=== PATIENT | male | born 1970 | race Caucasian/White ===

== ENCOUNTER 2022-01-04 13:32 | Observation (INO) | payer MEDICAID, SELFPAY ==
[2022-01-04 13:36] VITALS: BP 116/71; PULSE 142; RESP 22; TEMP 36.6; O2SAT 95; BMI 25.7
--- NOTE | 2022-01-04 13:37 | XRR_ITS ---
PROCEDURE INFORMATION: Exam: XR Chest Exam date and time: 01/04/2022 12:45 PM Age: 51 years old Clinical indication: Pain; Angina pectoris; Patient HX: Cp throughout since this am, afib, HX of heart problems; Patch shown in lower lt lung field could not be removed; Additional info: Chest pain TECHNIQUE: Imaging protocol: XR of the chest. Views: 1 view. COMPARISON: No relevant prior studies available. FINDINGS: Lungs: Bronchovascular markings extend to the chest wall in the right lung No consolidation. Pleural spaces: Unremarkable. No pleural effusion. No pneumothorax. Heart/Mediastinum: Unremarkable. No cardiomegaly. Bones/joints: Unremarkable. A ventricular peritoneal shunt is present on the right side appearing intact. XR/XR chest 1V portable [id number] IMPRESSION: No acute findings. Intact CLOTH OPENER HAND shunt right side.
--- NOTE | 2022-01-04 13:39 | CTR_ITS ---
PROCEDURE INFORMATION: Exam: CTA Chest With Contrast Exam date and time: 01/04/2022 2:56 PM Age: 51 years old Clinical indication: Shortness of breath; Additional info: Eval for pe TECHNIQUE: Imaging protocol: Computed tomographic angiography of the chest with contrast. 3D rendering (Not supervised by radiologist): MIP and/or 3D reconstructed images were created by the technologist. Radiation optimization: All CT scans at this facility use at least one of these dose optimization techniques: automated exposure control; mA and/or kV adjustment per patient size (includes targeted exams where dose is matched to clinical indication); or iterative reconstruction. Contrast material: OMNIPAQUE 350; Contrast volume: 95 ml; Contrast route: INTRAVENOUS (IV); COMPARISON: CR XR chest 1V portable [id number] 01/04/2022 12:45 PM RADIATION DOSE METRICS: Total DLP (mGy-cm): 1801.49 FINDINGS: Pulmonary arteries: Normal. No pulmonary emboli. Aorta: Unremarkable. No aortic aneurysm. No aortic dissection. Lungs: There is diffuse emphysematous disease in both lungs. A parenchymal density is present in the right upper lobe which may represent pulmonary fibrosis. Pleural spaces: Unremarkable. No pneumothorax. No pleural effusion. Heart: Unremarkable. No cardiomegaly. No pericardial effusion. Lymph nodes: Unremarkable. No enlarged lymph nodes. Bones/joints: Unremarkable. No acute fracture. Soft tissues: Unremarkable. PROCEDURE INFORMATION: Exam: CT Angiography Abdomen With Contrast Exam date and time: 01/04/2022 2:56 PM Age: 51 years old Clinical indication: Shortness of breath; Additional info: Eval for pe TECHNIQUE: Imaging protocol: Computed tomographic angiography images of the abdomen with intravenous contrast material. 3D rendering (Not supervised by radiologist): MIP and/or 3D reconstructed images were created by the technologist. Radiation optimization: All CT scans at this facility use at least one of these dose optimization techniques: automated exposure control; mA and/or kV adjustment per patient size (includes targeted exams where dose is matched to clinical indication); or iterative reconstruction. Contrast material: OMNIPAQUE 350; Contrast volume: 95 ml; Contrast route: INTRAVENOUS (IV); COMPARISON: CR XR chest 1V portable [id number] 01/04/2022 12:45 PM RADIATION DOSE METRICS: Total DLP (mGy-cm): 1801.49 FINDINGS: Aorta: No aortic aneurysm. No aortic dissection. Scattered calcifications Celiac trunk and mesenteric arteries: No occlusion or significant stenosis. Renal arteries: No occlusion or significant stenosis. Liver: Diffuse lucency is seen consistent with steatosis. No mass. Gallbladder and bile ducts: Normal. No calcified stones. No ductal dilation. Pancreas: Normal. No ductal dilation. Spleen: Normal. No splenomegaly. Adrenals: Normal. No mass. Kidneys and ureters: Normal. No hydronephrosis. Stomach and bowel: Filled with fluid. No obstruction. No mucosal thickening. Lymph nodes: Unremarkable. No enlarged lymph nodes. Intraperitoneal space: Right side METHODS EXAMINER shunt tube is present. No free air. No significant fluid collection. Bones/joints: Unremarkable. No acute fracture. No dislocation. Soft tissues: Unremarkable. CT/CT angio chest abdomen IMPRESSION: 1. Negative for pulmonary embolism. 2. Negative for right heart strain. 3. Right upper lobe pulmonary fibrosis 4. Diffuse pulmonary emphysema IMPRESSION: 1. Calcified abdominal aorta without aneurysm, branch vessels are normal 2. Hepatic steatosis 3. The stomach is filled with fluid. 4. 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 anterior abdomen
--- NOTE | 2022-01-04 13:41 | W.ED.GENADLT ---
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 Patient has complaints of nausea/vomiting and diarrhea for the last 3 days. Earlier today, patient felt lightheaded and had episodes of chest pain. At the custodial, patient nurse noted the patient heart rate was exceedingly fast and called EMS. By the time EMS arrived, patient was noted to be in atrial fibrillation with RVR with heart rate to the 230s and patient was hypotensive. Rescue gave patient 150 mg of amiodarone over 10 minutes and patient is heart rate improved to 120s and the blood pressure improved. Patient never lost consciousness during the episode or loss pulses. On arrival, patient still denies any active chest pain or palpitation at this time. Onset: 3 days ago Duration: ongoing Location:home Severity:moderate/severe Associated symptoms: Reports chest pain, nausea, palpitations and vomiting; Deny dyspnea or rash Review of Systems Const: Denies: fever(s) or chills Eyes: Denies: change in vision ENMT: Denies: mouth pain Card: Reports: chest pain and palpitations Resp: Denies: dyspnea or non-productive cough GI: Reports: nausea, vomiting and diarrhea : Denies: dysuria Musc: Denies: extremity pain Skin/Breast: Denies: rash or new lesions Neuro: Denies: weakness in extremities Psych: Reports: other (Normal mood) Vince/Lymph: Denies: easy bruising PFSH ED PFSH: Medical History Aortic aneurysm Atrial fibrillation Personal history of ECMO Surgical History PRESS OPERATOR PRINTING (ventriculoperitoneal) shunt status Social History Smoking and tobacco status: never smoked Alcohol intake: never Substance/Drug Use: former Physical Exam Const: COMMON NORMALS: alert HENMT: COMMON NORMALS: atraumatic HEAD & SCALP: atraumatic MOUTH: moist mucous membranes not abnormal Eye: COMMON NORMALS: EOMs intact bilaterally and conjunctivae normal CONJUNCTIVA: Yes conjunctivae normal Neck/C-Spine: COMMON NORMALS: full ROM and supple Resp: COMMON NORMALS: normal respiratory effort and clear to auscultation bilaterally AUSCULTATION: clear to auscultation bilaterally Cardio: RATE: tachycardic GI: COMMON NORMALS: Soft to palpation and non-tender PALPATION: Yes Soft to palpation Extremity: COMMON NORMALS: full ROM Neuro: SENSORIUM/ORIENTATION: Yes alert MOTOR EXAM: No Abnormal motor strength present and Other motor observations present (no focal motor deficits) Psych: COMMON NORMALS: speech normal SPEECH: Yes normal speech MOOD & AFFECT: Yes euthymic mood Course Vital Signs: Vital signs: Vital Signs Temperature 99.3 F 01/04/22 20:00 Pulse Rate 114 H 01/04/22 20:00 Respiratory Rate 20 H 01/04/22 20:00 Blood Pressure 104/77 01/04/22 20:00 Pulse Oximetry 96 01/04/22 20:00 [facility] - General Adult Medical Decision Making 51-year-old male with history of aortic aneurysm, atrial fibrillation, venous meth use who presents the emergency room for evaluation of new onset of fast heart rate. On arrival, patient is noted to be regular tachycardic with HRT of 145. EKG showed left posterior bundle branch with right bundle branch with regular atrial flutter. No CAREN or hyperacute T waves. No prior EKG for comparison. We have attempted to reach [facility] for previous EKG, currently pending. Patient received 20 mg of Cardizem, 15 mg of metoprolol, 250 mg of IV digoxin, 1.5 L of fluid with significant provement heart rate to low 100s. TSH T4 within normal limit. CTA is negative for any acute findings. Patient is still in aflutter with HR in the low 100s. Will be admitted for echo and close evaluation Disposition: admission Lab Data : 01/04/22 13:50 01/04/22 13:50 Radiology Impressions Chest X-Ray 01/04/22 13:37 IMPRESSION: No acute findings. Intact PRESS OPERATOR PRINTING shunt right side. Chest/Abdomen CTA 01/04/22 13:39 IMPRESSION: 1. Negative for pulmonary embolism. 2. Negative for right heart strain. 3. Right upper lobe pulmonary fibrosis 4. Diffuse pulmonary emphysema IMPRESSION: 1. Calcified abdominal aorta without aneurysm, branch vessels are normal 2. Hepatic steatosis 3. The stomach is filled with fluid. 4. 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 anterior abdomen Laboratory Results WBC 11.9 10^3/uL (4.0-10.0) H 01/04/22 13:50 RBC 5.79 10^6/uL (4.1-5.3) H 01/04/22 13:50 Hgb 17.1 g/dL (11.7-16.6) H 01/04/22 13:50 Hct 52.0 % (42.0-52.0) 01/04/22 13:50 MCV 89.8 fl (80-94) 01/04/22 13:50 MCH 29.5 pg (28.0-34.0) 01/04/22 13:50 MCHC 32.9 g/dL (30.0-36.0) 01/04/22 13:50 RDW 16.1 % (12.1-15.1) H 01/04/22 13:50 Plt Count 229 10^3/cmm (130-400) 01/04/22 13:50 MPV 11.2 fL (7.4-10.4) H 01/04/22 13:50 Neut % (Auto) 89.1 % 01/04/22 13:50 Lymph % (Auto) 5.1 % 01/04/22 13:50 Marshall % (Auto) 3.9 % 01/04/22 13:50 Eos % (Auto) 1.3 % 01/04/22 13:50 Baso % (Auto) 0.3 % 01/04/22 13:50 Neut # (Auto) 10.61 10^3/uL (1.8-7.7) H 01/04/22 13:50 Lymph # (Auto) 0.6 10^3/uL (0.8-4.8) L 01/04/22 13:50 Marshall # (Auto) 0.5 10^3/uL (0.2-0.9) 01/04/22 13:50 Eos # (Auto) 0.2 10^3/uL (0.0-0.8) 01/04/22 13:50 Baso # (Auto) 0.0 10^3/uL (0.0-0.1) 01/04/22 13:50 Nucleated RBC % (auto) 0 % 01/04/22 13:50 Nucleated RBCs # 0.0 /100WBC 01/04/22 13:50 Sodium 136 mmol/L (136-145) 01/04/22 13:50 Potassium 5.1 mmol/L (3.5-5.1) 01/04/22 13:50 Chloride 100 mmol/L (98-107) 01/04/22 13:50 Carbon Dioxide 25 mmol/L (22-29) 01/04/22 13:50 Anion Gap 16.1 (5-19) 01/04/22 13:50 BUN 21 mg/dL (6-20) H 01/04/22 13:50 Creatinine 1.1 mg/dL (0.7-1.2) 01/04/22 13:50 GFR Calculation 70.3 mL/min (90-130) L 01/04/22 13:50 Glucose 99 mg/dL (65-115) 01/04/22 13:50 Calculated Osmolality 285 mOsm/kg (285-295) 01/04/22 13:50 Lactate 2.1 mmol/L (0.5-2.2) 01/04/22 13:50 Calcium 9.6 mg/dL (8.5-10.5) 01/04/22 13:50 Total Bilirubin 0.6 mg/dL (0.15-1.2) 01/04/22 13:50 AST 11 U/L (0-40) 01/04/22 13:50 ALT 13 U/L (0-41) 01/04/22 13:50 Alkaline Phosphatase 94 IU/L (40-130) 01/04/22 13:50 Troponin T Baseline 6 ng/L (0-15) 01/04/22 13:50 Total Protein 7.6 g/dL (6.6-8.7) 01/04/22 13:50 Albumin 4.9 g/dL (3.5-5.2) 01/04/22 13:50 Globulin 2.7 g/dL (1.3-4.6) 01/04/22 13:50 Lipase 33 U/L (13-60) 01/04/22 13:50 TSH 1.90 uIU/mL (0.27-4.20) 01/04/22 13:50 Free T4 0.93 ng/dL (0.82-1.77) 01/04/22 13:50 Imaging Data Other Imaging: Radiologist's impression: [facility] [address] [place] [address] XRay Report Signed Patient: Wei Leone Unit #: [id number] : 1970 Age/Sex: 51 / M ADM Date: 01/04/22 Loc: ER Room/Bed: Attending Dr: Ordering Provider/Ordering MD: Garrison Perkins MD Date of Service: 01/04/22 Procedure(s): XR chest 1V portable [id number] Accession Number(s): [id number] Report Number: [id number] PROCEDURE INFORMATION: Exam: XR Chest Exam date and time: 01/04/2022 12:45 PM Age: 51 years old Clinical indication: Pain; Angina pectoris; Patient HX: Cp throughout since this am, afib, HX of heart problems; Patch shown in lower lt lung field could not be removed; Additional info: Chest pain TECHNIQUE: Imaging protocol: XR of the chest. Views: 1 view. COMPARISON: No relevant prior studies available. FINDINGS: Lungs:? Bronchovascular markings extend to the chest wall in the right lung No consolidation. Pleural spaces: Unremarkable. No pleural effusion. No pneumothorax. Heart/Mediastinum: Unremarkable. No cardiomegaly. Bones/joints: Unremarkable. A ventricular peritoneal shunt is present on the right side appearing intact. XR/XR chest 1V portable [id number] IMPRESSION: No acute findings. Intact PRESS OPERATOR PRINTING shunt right side. ? Dictated By: Odell Solis Signed By: Odell Solis Signed Date/Time: 01/04/22 1454 DD/ 1245 Discharge Plan Discharge Patient Disposition: Admitted As Inpatient Admit Provider: Aneudy Chaparro Clinical Impression: Atrial flutter, Nausea & vomiting, Diarrhea, Chest pressure Condition: Stable Coding Level of Care Code ED Partner Marketing Intern for Chg Fwd Exam Comprehensive
--- NOTE | 2022-01-04 13:51 | ECG_ITS ---
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 Measurements Intervals [place] Rate: 91 P: OK: QRS: 266 QRSD: 157 T: 76 QT: 386 QTc: 475 Interpretive Statements ATRIAL FLUTTER INDETERMINATE AXIS RIGHT BUNDLE BRANCH BLOCK [120+ ms QRS DURATION, UPRIGHT V1, 40+ ms S IN I/aVL/V4/V5/V6] LEFT POSTERIOR FASCICULAR BLOCK [QRS AXIS > 109, INFERIOR Q] Compared to ECG 01/04/2022 13:34:56 Indeterminate axis now present Ventricular premature complex(es) no longer present Aberrant conduction of supraventricular beat(s) no longer present Electronically Signed On 01-04-2022 20:08:16 CDT by Sonu Springer M.D. [id number]
[2022-01-04] MEDS: metoprolol tartrate 1 mg/1 mL SDV 5 mL 5 MG IVP ×2 (14:00→14:12)
[2022-01-04] MEDS: digoxin 250 mcg/ml INJ 2 mL IVP (14:05)
[2022-01-04 14:06] LABS: Basophils % 0.3 %; Eosinophils # 0.2 10^3/uL (0.0-0.8); Eosinophils % 1.3 %; Hemoglobin 17.1 g/dL (11.7-16.6); Lymphocytes # 0.6 10^3/uL (0.8-4.8); Lymphocytes % 5.1 %; Mean Corpuscular HGB Conc 32.9 g/dL (30.0-36.0); Mean Corpuscular Hemoglobin 29.5 pg (28.0-34.0); Mean Corpuscular Volume 89.8 fl (80-94); Mean Platelet Volume 11.2 fL (7.4-10.4); Monocytes # 0.5 10^3/uL (0.2-0.9); Monocytes % 3.9 %; Neutrophils # 10.61 10^3/uL (1.8-7.7); Neutrophils % 89.1 %; Nucleated Red Blood Cells % 0 %; Platelet Count 229 10^3/cmm (130-400); Red Blood Count 5.79 10^6/uL (4.1-5.3); Red Cell Distribution Width 16.1 % (12.1-15.1); White Blood Count 11.9 10^3/uL (4.0-10.0)
[2022-01-04 14:26] LABS: Lactate (Lactic Acid level) 2.1 mmol/L (0.5-2.2)
[2022-01-04] MEDS: ondansetron 2 mg/ML SDV 2 mL 4 MG IVP (14:26)
[2022-01-04] MEDS: sodium chloride 0.9% 1,000 ML 999 ML IV (14:32)
--- NOTE | 2022-01-04 14:32 | PC.NURSE ---
PT IS ON CONTINUOUS SPO2, NIBP, AND CM.
[2022-01-04 14:33] LABS: Troponin(5th) Baseline 6 ng/L (0-15)
[2022-01-04 14:40] LABS: Alanine Aminotransferase 13 U/L (0-41); Albumin Level 4.9 g/dL (3.5-5.2); Alkaline Phosphatase 94 IU/L (40-130); Anion Gap 16.1 (5-19); Aspartate Amino Transferase 11 U/L (0-40); Blood Urea Nitrogen 21 mg/dL (6-20); Calcium 9.6 mg/dL (8.5-10.5); Carbon Dioxide 25 mmol/L (22-29); Chloride 100 mmol/L (98-107); Creatinine Clr Calc Pharmacy 95.1191; Free T4 Free Thyroxine 0.93 ng/dL (0.82-1.77); Globulin 2.7 g/dL (1.3-4.6); Glomerular Filtration Rate 70.3 mL/min (90-130); Glucose 99 mg/dL (65-115); Lipase 33 U/L (13-60); Osmolality Calculated 285 mOsm/kg (285-295); Potassium 5.1 mmol/L (3.5-5.1); Sodium 136 mmol/L (136-145); Total Bilirubin 0.6 mg/dL (0.15-1.2); Total Protein 7.6 g/dL (6.6-8.7)
[2022-01-04] MEDS: iohexol 350 mg/mL 100 mL Btl IV (15:04)
[2022-01-04 15:12] VITALS: BP 94/79; PULSE 95; RESP 19; O2SAT 93
--- NOTE | 2022-01-04 15:51 | ECG_ITS ---
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 Measurements Intervals [place] Rate: 113 P: ME: QRS: 262 QRSD: 162 T: 57 QT: 394 QTc: 541 Interpretive Statements ATRIAL FLUTTER WITH RAPID VENTRICULAR RESPONSE RIGHT BUNDLE BRANCH BLOCK [120+ ms QRS DURATION, UPRIGHT V1, 40+ ms S IN I/aVL/V4/V5/V6] LEFT POSTERIOR FASCICULAR BLOCK [QRS AXIS > 109, INFERIOR Q] MODERATE T-WAVE ABNORMALITY, CONSIDER LATERAL ISCHEMIA [-0.1+ mV T WAVE IN I/aVL/V5/V6] MODERATE T-WAVE ABNORMALITY, CONSIDER INFERIOR ISCHEMIA [-0.1+ mV T WAVE IN II/aVF] Compared to ECG 01/04/2022 15:17:56 T-wave abnormality now present Possible ischemia now present Indeterminate axis no longer present Electronically Signed On 01-04-2022 20:10:03 CDT by Sonu Springer M.D. [id number]
--- NOTE | 2022-01-04 16:30 | PC.NURSE ---
REPORT GIVEN TO JUANA PORRAS.
[2022-01-04 16:39] LABS: Troponin 5 2HR 6.02 ng/L (0-15)
--- NOTE | 2022-01-04 16:39 | PM.HP ---
Providers/Chief Complaint Admitting Physician: Aneudy Chaparro DO Primary Care Provider: from [place] Chief Complaint: chest pressure/ afib/ nausea History of Present Illness Wei Leone is a 51 year old male who lives in a senior living who states he had hard chest pain nausea diarrhea and lightheadedness. Patient was found with a rapid heart rate. There is some documentation that his heart rate was over 200. After receiving amiodarone 150 mg he was found to be in atrial flutter at a rate of 150. Currently the patient is without chest pain pressure nausea vomiting or lightheadedness. Work-up in the ED was negative for PE his heart rate remains around 110 with some irregularity. EGD is markedly abnormal with what appears to be a right bundle branch block and a left anterior fascicular block. Review of Systems Const: Denies: fever(s) or chills Eyes: Denies: change in vision ENMT: Denies: throat pain or nasal congestion Card: Reports: chest pain, palpitations, irregular heart rhythm and lightheadedness Resp: Denies: dyspnea or productive cough GI: Denies: abdominal pain, vomiting or change in stool character : Denies: difficulty urinating or dysuria Musc: Denies: back pain or extremity pain Skin/Breast: Denies: rash or lesions Neuro: Denies: headache(s) Psych: Denies: anxiety or depression (Admits to drug addiction and being homeless. He has chosen to live in [place]) Vince/Lymph: Denies: easy bruising or easy bleeding Medications/Allergies Home Medications Medication Instructions Recorded Confirmed Last Taken Type acetaminophen 325 mg tablet 325 mg PO Q4H PRN 01/04/22 01/04/22 Unknown History (Tylenol) albuterol sulfate 90 mcg/actuation 2 puff INHALATION Q4H PRN 01/04/22 01/04/22 Unknown History aerosol inhaler (Ventolin HFA) aluminum-mag hydroxide-simethicone 5 ml PO 5XD PRN 01/04/22 01/04/22 Unknown History 200 mg-200 mg-20 mg/5 mL oral susp apixaban 5 mg tablet 5 mg PO BID 01/04/22 01/04/22 Unknown History bisacodyl 10 mg rectal suppository 10 mg TN DAILY 01/04/22 01/04/22 Unknown History (Dulcolax (bisacodyl)) bisacodyl 5 mg tablet,delayed 5 mg PO DAILY PRN 01/04/22 01/04/22 Unknown History release (Dulcolax (bisacodyl)) cetirizine 10 mg tablet 10 mg PO DAILY 01/04/22 01/04/22 Unknown History diltiazem HCl 90 mg tablet 90 mg PO BID 01/04/22 01/04/22 Unknown History escitalopram oxalate 20 mg tablet 20 mg PO BEDTIME 01/04/22 01/04/22 Unknown History fluticasone 250 mcg-salmeterol 50 2 inh INHALATION DAILY 01/04/22 01/04/22 Unknown History mcg/dose blistr powdr for inhalation (Advair Diskus) gabapentin 400 mg capsule 400 mg PO TID 01/04/22 01/04/22 Unknown History magnesium citrate 150 ml PO BID PRN 01/04/22 01/04/22 Unknown History magnesium hydroxide 311 mg 311 mg PO QID PRN 01/04/22 01/04/22 Unknown History chewable tablet naloxone 4 mg/actuation nasal spray 4 mg INTRANASAL Q2M PRN 01/04/22 01/04/22 Unknown History nicotine 14 mg/24 hr daily 1 patch TRANSDERMAL DAILY 01/04/22 01/04/22 Unknown History transdermal patch tamsulosin 0.4 mg capsule 0.4 mg PO BEDTIME 01/04/22 01/04/22 Unknown History trazodone 50 mg tablet 50 mg PO BEDTIME 01/04/22 01/04/22 Unknown History varenicline 1 mg tablet 1 mg PO BID 01/04/22 01/04/22 Unknown History Allergies Allergy/AdvReac Type Severity Reaction Status Date / Time codeine Allergy ADR-Headach Verified 01/04/22 15:02 e PFSH Acute PFSH: Medical History Aortic aneurysm Atrial fibrillation Personal history of ECMO Surgical History FLUME RIDE OPERATOR (ventriculoperitoneal) shunt status Social History Smoking and tobacco status: never smoked Alcohol intake: never Substance/Drug Use: former Vitals/I&O/Wt Last Vital Signs Temp 97.8 F 01/04/22 13:36 Pulse 95 01/04/22 15:12 Resp 19 H 01/04/22 15:12 BP 94/79 01/04/22 15:12 Pulse Ox 93 01/04/22 15:12 Weight last 48 hrs Weight 90.718 kg Physical Exam Const: COMMON NORMALS: no acute distress and average body habitus GENERAL APPEARANCE: cooperative NUTRITIONAL APPEARANCE: thin ORIENTATION/CONSCIOUSNESS: Yes awake, Yes oriented to person, Yes oriented to place and Yes oriented to time HENMT: HEAD & SCALP: normocephalic and atraumatic FACE & SINUS: face symmetric NOSE: Normal external nose present and Normal nares present EXTERNAL EAR: Yes external ears normal MOUTH: Normal oral and palatal mucosa present and tongue normal TEETH & GINGIVA: Yes abnormal tooth and associated gingiva and Yes poor dentition THROAT: posterior oropharynx normal and uvula midline Eye: GENERAL EYE: appearance normal, both eyes and all related structures ALIGNMENT: Yes alignment normal CONJUNCTIVA: Yes conjunctivae normal PUPIL: Yes Equal, round and reactive pupils present Neck/C-Spine: GENERAL: Yes trachea midline THYROID: Thyroid normal Lymph: LYMPHATIC: no lymphadenopathy noted Chest: CHEST: Yes Symmetrical chest wall rise Resp: COMMON NORMALS: normal respiratory effort, No use of accessory muscles and clear to auscultation bilaterally AUSCULTATION: diminished lung sounds Cardio: RATE: tachycardic OTHER: distant heart sounds GI: COMMON NORMALS: Normal to inspection, nondistended, normoactive bowel sounds present, Soft to palpation, non-tender, No hepatosplenomegaly present and no masses : COMMON NORMALS: Yes no CVA tenderness and Yes normal external exam Back/Pelvis: COMMON NORMALS: thoracic and lumbar spine normal to inspection Extremity: COMMON NORMALS: normal to inspection Neuro: COMMON NORMALS: patient oriented x3, moves all extremities, no focal motor deficits and no sensory deficits noted Psych: COMMON NORMALS: mental status grossly normal and cooperative APPEARANCE: Yes grossly normal ATTITUDE: Yes engaged ACTIVITY/MOTOR BEHAVIOR: Yes appropriate eye contact SPEECH: Yes normal speech Skin: NARRATIVE SKIN EXAM: multiple tatoos Data : 01/04/22 13:50 01/04/22 13:50 Micro: Microbiology 01/04/22 13:52 Blood Culture - Preliminary Blood SPECIMEN COLLECTED 01/04/22 13:50 Blood Culture - Preliminary Blood SPECIMEN COLLECTED EKG 1: My Interpretation: Atrial flutter with a 2-1 block rate of 150 EKG computer-generated impression: Chest X-Ray 01/04/22 13:37 IMPRESSION: No acute findings. Intact FLUME RIDE OPERATOR shunt right side. Chest/Abdomen CTA 01/04/22 13:39 IMPRESSION: 1. Negative for pulmonary embolism. 2. Negative for right heart strain. 3. Right upper lobe pulmonary fibrosis 4. Diffuse pulmonary emphysema IMPRESSION: 1. Calcified abdominal aorta without aneurysm, branch vessels are normal 2. Hepatic steatosis 3. The stomach is filled with fluid. 4. 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 anterior abdomen A&P Assessment and plan (1) Chest pressure: Status: Acute (2) Atrial flutter: Status: Acute (3) Nausea & vomiting: Status: Acute (4) Diarrhea: Status: Acute Plan Patient will be admitted for cardiac work-up. Will follow troponins. Will control heart rate. Note patient is already on apixaban and diltiazem. May need to add a beta-jason. Patient will be admitted to observation for rule out ischemia. Attestations Medical Necessity Statement*: With patient history of cardiopulmonary bypass requirement in 2018 and concerning atrial EKG without a baseline to compare it to patient will be admitted for rule out unstable angina. There is concerned that patient could have a myocardial infarction or severe life-threatening arrhythmia. 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
--- NOTE | 2022-01-04 16:43 | PC.NURSE ---
Vitals scanned into chart
--- NOTE | 2022-01-04 16:47 | PC.NURSE ---
This nurse spent approximately one hour of critical care time with pt.
[2022-01-04 17:06] VITALS: BP 107/78; PULSE 106; RESP 16; TEMP 36.5; O2SAT 95
[2022-01-04 17:07] LABS: Troponin 5 2HR Delta 0.02 ABS# (0-10)
[2022-01-04] MEDS: dilTIAZem 60 mg Tablet 90 MG PO ×2 (17:09→20:38)
[2022-01-04] MEDS: apixaban 5 mg Tablet PO (17:09)
[2022-01-04 18:00] VITALS: PULSE 75; RESP 14; O2SAT 96
[2022-01-04 19:40] LABS: Add Urine Microscopic? NO; Charge for UA Resulting for Rev
--- NOTE | 2022-01-04 19:51 | ECG_ITS ---
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 Measurements Intervals [place] Rate: 147 P: IN: QRS: 264 QRSD: 142 T: 73 QT: 316 QTc: 494 Interpretive Statements ATRIAL FLUTTER WITH RAPID VENTRICULAR RESPONSE WITH ABERRANT CONDUCTION OR VENTRICULAR PREMATURE COMPLEXES RIGHT BUNDLE BRANCH BLOCK [120+ ms QRS DURATION, UPRIGHT V1, 40+ ms S IN I/aVL/V4/V5/V6] LEFT POSTERIOR FASCICULAR BLOCK [QRS AXIS > 109, INFERIOR Q] No previous ECG available for comparison Electronically Signed On 01-04-2022 20:10:40 CDT by Sonu Springer M.D. [id number]
[2022-01-04 19:53] LABS: Bilirubin Urine Neg (Negative); Blood Urine Neg (Negative); Glucose Urine UA Norm (Normal); Ketones Urine Negative (Negative); Leukocyte Esterase Urine Negative (Negative); Nitrate Urine Negative (Negative); Protein Urine Neg (Negative); Urine Appearance Clear (CLEAR); Urine Color Yellow (Yellow); Urobilinogen Urine Norm (Negative); pH Urine 5 (5-7)
[2022-01-04 20:00] VITALS: BP 104/77; PULSE 114; RESP 20; TEMP 37.4; O2SAT 96
[2022-01-04 20:25] LABS: Troponin 5 6HR 6.75 ng/L (0-15)
[2022-01-04] MEDS: trazodone 50 mg Tablet PO (20:39)
[2022-01-04] MEDS: escitalopram 10 mg Tablet 20 MG PO (20:39)
[2022-01-04] MEDS: tamsulosin 0.4 mg Capsule PO (20:39)
[2022-01-04] MEDS: gabapentin 400 mg Capsule PO (20:39)
[2022-01-04 20:52] LABS: Troponin 5 6HR Delta 0.75 ng/L (0-12)
[2022-01-04 22:00] VITALS: PULSE 113
[2022-01-05] VITALS (10 sets, daily range): BP systolic 97–106; BP diastolic 36–69; PULSE 57–105; RESP 16–20; TEMP 36.4–37.6; O2SAT 91–96
[2022-01-05 07:28] LABS: Blood Urea Nitrogen 22 mg/dL (6-20); Calcium 8.9 mg/dL (8.5-10.5); Carbon Dioxide 16 mmol/L (22-29); Chloride 103 mmol/L (98-107); Glomerular Filtration Rate 70.3 mL/min (90-130); Glucose 103 mg/dL (65-115); Osmolality Calculated 278 mOsm/kg (285-295); Sodium 132 mmol/L (136-145)
[2022-01-05 07:31] LABS: Anion Gap 17.6 (5-19); Potassium 4.6 mmol/L (3.5-5.1)
--- NOTE | 2022-01-05 10:04 | P.DS_ITS ---
Discharge Providers Date of Admission: 01/04/22 15:21 Date of Discharge: January 05, 2022 Attending Provider at Admission: Aneudy Chaparro DO Attending Provider at Discharge: Aneudy Chaparro DO Diagnoses at Discharge Discharge Diagnosis (1) Chest pressure: Status: Acute (2) Atrial flutter: Status: Acute (3) Nausea & vomiting: Status: Acute (4) Diarrhea: Status: Acute Reason for Visit Reason for Visit: chest pressure/ afib/ nausea Brief History: see H and P Hospital Course Hospital Course Patient came to the emergency room with chest pain and pressure nausea and diarrhea. In the ambulance he was found to be to have a tachyarrhythmia with a heart rate over 200. This was some type of supraventricular tachycardia. After adenosine his EKG showed atrial flutter with a 2-1 block at a rate of 150. Admitted for rule out cardiac ischemia. His troponins were negative. His heart rate maintained under 100 with an alternating 3-1 a 4-1 block. He required no further cardiac medications. He did have few episodes of diarrhea. These diarrhea stool sent was sent for culture. He is C. difficile negative. Any symptoms, and with stable vital signs he will be discharged back to his [facility] in stable and improved condition. He will be placed on digoxin to control heart rate. Also ordered as needed Cardizem if his heart rate is above 100 to prevent readmission. Physical Exam Narrative: Patient is alert and oriented seen lying in bed watching videos on his phone. Heart is regular normal S1-S2 without murmurs clicks gallops or rubs Lungs clear to auscultation without wheezes rales or rhonchi Abdomen soft nontender nondistended positive bowel sounds Extremities no clubbing cyanosis or edema Discharge Data Studies Completed and Pending Completed Studies During Hospitalization Category Date Time Status CT angio chest abdomen Urgent Cat Scan 01/04/22 13:39 Completed XR chest 1V portable [id number] Urgent Exams 01/04/22 13:37 Completed Pending at discharge Category Date Time Status Blood Culture Stat Lab 01/04/22 13:52 Results C DIFF [Clostridioides Difficile PCR] Routine Lab 01/04/22 20:25 Results Stool Culture, Bacterial [Enteric Bacterial Panel by Lab 01/04/22 20:25 Results PCR] Routine stool Ova and Parasite [Enteric Parasite Panel by PCR] Lab 01/04/22 20:25 Results Routine Radiology Impressions Chest X-Ray 01/04/22 13:37 IMPRESSION: No acute findings. Intact [employer] shunt right side. Chest/Abdomen CTA 01/04/22 13:39 IMPRESSION: 1. Negative for pulmonary embolism. 2. Negative for right heart strain. 3. Right upper lobe pulmonary fibrosis 4. Diffuse pulmonary emphysema IMPRESSION: 1. Calcified abdominal aorta without aneurysm, branch vessels are normal 2. Hepatic steatosis 3. The stomach is filled with fluid. 4. 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 anterior abdomen Laboratory Results WBC 11.9 10^3/uL (4.0-10.0) H 01/04/22 13:50 RBC 5.79 10^6/uL (4.1-5.3) H 01/04/22 13:50 Hgb 17.1 g/dL (11.7-16.6) H 01/04/22 13:50 Hct 52.0 % (42.0-52.0) 01/04/22 13:50 MCV 89.8 fl (80-94) 01/04/22 13:50 MCH 29.5 pg (28.0-34.0) 01/04/22 13:50 MCHC 32.9 g/dL (30.0-36.0) 01/04/22 13:50 RDW 16.1 % (12.1-15.1) H 01/04/22 13:50 Plt Count 229 10^3/cmm (130-400) 01/04/22 13:50 MPV 11.2 fL (7.4-10.4) H 01/04/22 13:50 Neut % (Auto) 89.1 % 01/04/22 13:50 Lymph % (Auto) 5.1 % 01/04/22 13:50 [place] % (Auto) 3.9 % 01/04/22 13:50 Eos % (Auto) 1.3 % 01/04/22 13:50 Baso % (Auto) 0.3 % 01/04/22 13:50 Neut # (Auto) 10.61 10^3/uL (1.8-7.7) H 01/04/22 13:50 Lymph # (Auto) 0.6 10^3/uL (0.8-4.8) L 01/04/22 13:50 [place] # (Auto) 0.5 10^3/uL (0.2-0.9) 01/04/22 13:50 Eos # (Auto) 0.2 10^3/uL (0.0-0.8) 01/04/22 13:50 Baso # (Auto) 0.0 10^3/uL (0.0-0.1) 01/04/22 13:50 Nucleated RBC % (auto) 0 % 01/04/22 13:50 Nucleated RBCs # 0.0 /100WBC 01/04/22 13:50 Sodium 132 mmol/L (136-145) L 01/05/22 06:50 Potassium 4.6 mmol/L (3.5-5.1) 01/05/22 06:50 Chloride 103 mmol/L (98-107) 01/05/22 06:50 Carbon Dioxide 16 mmol/L (22-29) L 01/05/22 06:50 Anion Gap 17.6 (5-19) 01/05/22 06:50 BUN 22 mg/dL (6-20) H 01/05/22 06:50 Creatinine 1.1 mg/dL (0.7-1.2) 01/05/22 06:50 GFR Calculation 70.3 mL/min (90-130) L 01/05/22 06:50 Glucose 103 mg/dL (65-115) 01/05/22 06:50 Calculated Osmolality 278 mOsm/kg (285-295) L 01/05/22 06:50 Lactate 2.1 mmol/L (0.5-2.2) 01/04/22 13:50 Calcium 8.9 mg/dL (8.5-10.5) 01/05/22 06:50 Total Bilirubin 0.6 mg/dL (0.15-1.2) 01/04/22 13:50 AST 11 U/L (0-40) 01/04/22 13:50 ALT 13 U/L (0-41) 01/04/22 13:50 Alkaline Phosphatase 94 IU/L (40-130) 01/04/22 13:50 Troponin T Baseline 6 ng/L (0-15) 01/04/22 13:50 Troponin T 120 Minute 6.02 ng/L (0-15) 01/04/22 16:00 Delta Troponin T 0.02 ABS# (0-10) 01/04/22 16:00 Troponin T Hi Sens 6Hr 6.75 ng/L (0-15) 01/04/22 19:55 Troponin T Hi Sens 6Hr Delta 0.75 ng/L (0-12) 01/04/22 19:55 Total Protein 7.6 g/dL (6.6-8.7) 01/04/22 13:50 Albumin 4.9 g/dL (3.5-5.2) 01/04/22 13:50 Globulin 2.7 g/dL (1.3-4.6) 01/04/22 13:50 Lipase 33 U/L (13-60) 01/04/22 13:50 TSH 1.90 uIU/mL (0.27-4.20) 01/04/22 13:50 Free T4 0.93 ng/dL (0.82-1.77) 01/04/22 13:50 Urine Color Yellow (Yellow) 01/04/22 19:25 Urine Appearance Clear (CLEAR) 01/04/22 19:25 Urine pH 5 (5-7) 01/04/22 19:25 Ur Specific [place] 1.010 (1.005-1.030) 01/04/22 19:25 Urine Protein Neg (Negative) 01/04/22 19:25 Urine Glucose (UA) Norm (Normal) 01/04/22 19:25 Urine Ketones Negative (Negative) 01/04/22 19:25 Urine Blood Neg (Negative) 01/04/22 19:25 Urine Nitrate Negative (Negative) 01/04/22 19:25 Urine Bilirubin Neg (Negative) 01/04/22 19:25 Urine Urobilinogen Norm mg/dL (Negative) 01/04/22 19:25 Ur Leukocyte Esterase Negative (Negative) 01/04/22 19:25 Vitals Last Vital Signs Temp 97.7 F 01/05/22 08:00 Pulse 84 01/05/22 08:08 Resp 18 01/05/22 08:08 BP 97/36 01/05/22 08:00 Pulse Ox 96 01/05/22 08:08 Discharge Plan Discharge Patient Disposition: Home Condition: Stable Prescriptions: New digoxin 125 mcg (0.125 mg) tablet 125 mcg PO DAILY Qty: 30 0RF diltiazem HCl [Cardizem] 30 mg tablet 30 mg PO .q8h prn Qty: 30 0RF Rx Instructions: Give prn HR > 100 if SBP>120 Continued Advair Diskus 250-50 mcg/dose blister with device 2 inh INHALATION DAILY 0RF Tylenol 325 mg Tablet 325 mg PO Q4H PRN (Reason: Pain) 0RF nicotine 14 mg/24 hr Patch 24 Hour 1 patch transdermal DAILY 0RF trazodone 50 mg tablet 50 mg PO BEDTIME 0RF cetirizine 10 mg Tablet 10 mg PO DAILY 0RF gabapentin 400 mg capsule 400 mg PO TID 0RF tamsulosin 0.4 mg capsule 0.4 mg PO BEDTIME 0RF Dulcolax (bisacodyl) 10 mg Suppository 10 mg [place] DAILY 0RF magnesium citrate Solution 150 ml PO BID PRN (Reason: Constipation) 0RF Milk of Magnesia (antacid) 311 mg Tablet,Chewable 311 mg PO QID PRN (Reason: Constipation) 0RF Dulcolax (bisacodyl) 5 mg Tablet,Delayed Release (Dr/Ec) 5 mg PO DAILY PRN (Reason: Constipation) 0RF Mylanta 200-200-20 mg/5 mL Suspension 5 ml PO 5XD PRN (Reason: Stomach Upset) 0RF Rx Instructions: administer between meals and at bedtime Ventolin HFA 90 mcg/actuation Hfa Aerosol Inhaler 2 puff INHALATION Q4H PRN (Reason: Shortness Of Breath) 0RF diltiazem HCl 90 mg tablet 90 mg PO BID 0RF escitalopram oxalate 20 mg tablet 20 mg PO BEDTIME 0RF Chantix 1 mg Tablet 1 mg PO BID 0RF apixaban 5 mg Tablet 5 mg PO BID 0RF naloxone 4 mg/actuation [place],Non-Aerosol 4 mg INTRANASAL Q2M PRN (Reason: Opioid Overdose) 0RF Rx Instructions: spray 1 dose into ONE nostril; alternate nostrils w each dose until help arrives Discharge Orders: Discharge Order (Routine); Ordered 01/05/22 Ordered By: Aneudy Chaparro Discharge Diet: Advance as tolerated Discharge Activity: Increase activity as tolerated Patient Instructions: Diltiazem (By mouth), Digoxin (By mouth), A-fib (Atrial Fibrillation) (GEN), Chest Pain (GEN), Opioid Safety Discharge Attestations Time Spent in Discharge Care*: less than 30 min Quality Metrics Clinical Quality Measures [ No reported AMI, CVA or VTE this stay] Coding Level of Care Code Acute Chg FW DC note Diagnoses Chest pressure R07.89 Atrial flutter I48.92 Nausea & vomiting R11.2 Diarrhea R19.7
[2022-01-05] MEDS: apixaban 5 mg Tablet PO (11:00)
[2022-01-05] MEDS: dilTIAZem 60 mg Tablet 90 MG PO (11:00)
[2022-01-05] MEDS: cetirizine 10 mg Tablet PO (11:00)
[2022-01-05] MEDS: gabapentin 400 mg Capsule PO (11:00)
[2022-01-05] MEDS: bisacodyl 10 mg Supp PR (11:02)
--- NOTE | 2022-01-05 13:57 | PC.NURSE ---
report called to gregory at [facility]. all questions answered. pt safely left with transport.
== END 2022-01-05 13:40 | disposition skilled nursing facility (03) ==
LOC: ER 15:42 → MEDSURG 16:18
PROVIDERS: Admitting Provider Internal Medicine; Emergency Provider Emergency Medicine; Visit Provider Internal Medicine
DX: I48.92 Unspecified atrial flutter (principal); R07.89 Other chest pain; R11.2 Nausea with vomiting, unspecified; R19.7 Diarrhea, unspecified; I45.10 Unspecified right bundle-branch block
CPT/HCPCS: 36415; 71045; 71275; 74175; 80048; 80053; 81003; 83605; 83690; 84439; 84443; 84484; 85025; 87040; 87493; 87506; 93005; 94640; 96365; 96375; 99285; 99291; G0378; J1160; J2405; J3490; J7030; Q9967

== ENCOUNTER 2023-01-30 13:28 | Outpatient (CLI) | payer OTHER, MEDICAID, SELFPAY ==
--- NOTE | 2023-01-30 13:39 | USCV_ITS ---
Wei Leone Age: 52 Gender: M : 1970 Exam Date: 01/30/2023 13:55 Ordering Phys: Lexie Feliciano MD Technologist: Exam Location: [facility] – [place] Indication: HX OF ABLATION BP: 139 / 80 HR: 87 Rhythm: Sinus Technical Quality: Adequate MEASUREMENTS (Male / Female) Normal Values 2D ECHO LV Diastolic Diameter PLAX 3.8 cm 4.2 - 5.9 / 3.9 - 5.3 cm LV Systolic Diameter PLAX 2.8 cm IVS Diastolic Thickness 1.1 cm 0.6 - 1.0 / 0.6 - 0.9 cm IVS Systolic Thickness 1.9 cm LVPW Diastolic Thickness 1.3 cm 0.6 - 1.0 / 0.6 - 0.9 cm LVPW Systolic Thickness 1.4 cm LVOT Diameter 2.0 cm LV Ejection Fraction 2D Teich 54.3 % LA Diameter 3.6 cm IVC Diameter 1.9 cm M-MODE Aortic Annulus Diameter 4.8 cm LA Ao Ratio MM 0.8 MV E Point Septal Separation 1.8 cm DOPPLER AV Peak Velocity 130.0 cm/s LVOT Peak Velocity 85.0 cm/s AV Area Cont Eq vti 2.1 cm squared AV Area Cont Eq pk 2.1 cm squared MV Area PHT 2.4 cm squared Mitral E to A Ratio 0.8 MV E' Velocity 32.0 cm/s Mitral E to MV E' Ratio 5.3 Mitral E to LV E' Lateral Ratio 4.4 Mitral E to LV E' Septal Ratio 6.7 TR Peak Velocity 193.7 cm/s TR Peak Gradient 15.0 mmHg TV Peak E Velocity 68.0 cm/s Right Atrial Pressure 3.0 mmHg Pulmonary Artery Systolic Pressu 18.0 mmHg RV Acceleration Time 0.2 s FINDINGS Left Ventricle Left ventricle is normal in size. LV systolic function is normal with EF 50-55%. No regional wall abnormalities are seen. Grade 1 diastolic dysfunction Right Ventricle Normal in size and function Right Atrium Normal in size. Interatrial septum is aneurysmal. Left Atrium Normal in size Mitral Valve Structurally normal mitral valve. Aortic Valve Structurally normal aortic valve. No significant stenosis or regurgitation. Tricuspid Valve Mild tricuspid regurgitation. Pulmonary artery systolic pressure is normal. Pulmonic Valve Not well-visualized Pericardium Normal Aorta Normal in size IVC Appears to be normal CONCLUSIONS LV systolic function is normal with EF 50 to 55%. Grade 1 diastolic dysfunction Interatrial septum is aneurysmal Mild tricuspid regurgitation No comparison studies are available Sonu Springer MD (Electronically Signed) Final Date: 13 February 2023 12:25 S
== END 2023-01-30 13:29 | disposition home or self-care (01) ==
PROVIDERS: PCP Family Medicine; Visit Provider Family Medicine
DX: K40.90 Unilateral inguinal hernia, without obstruction or gangrene, not specified as recurrent (principal)
CPT/HCPCS: 93306

== ENCOUNTER 2023-02-05 09:02 | Outpatient (CLI) | payer MEDICARE, MEDICAID, SELFPAY ==
--- NOTE | 2023-02-05 09:37 | ECG_ITS ---
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 Interpretive Statements NAME OF STUDY: LEXISCAN SESTAMIBI STRESS TEST INDICATION: [PREOP HERNIA REPAIR, ] Procedure: At the baseline, the blood pressure was 106/77 mmHg with a heart rate of 62 bpm. The electrocardiogram showed normal sinus rhythm, incomplete right bundle branch block. The Lexiscan was infused over a period of 20 seconds. A total of 0.4 mg of Lexiscan was infused. The stress phase was continued for a total of 5 minutes. Heart rate was at the end of stress phase was 68 bpm and a blood pressure of 111/75 mmHg. The EKG at the peak infusion revealed normal sinus rhythm with no significant ST-T wave changes. Sestamibi was injected 20 seconds after the Lexiscan infusion. Blood pressure at the end of recovery phase was 111/76 mmHg with a heart rate of 74 bpm. Conclusion: 1. Normal EKG response to Lexiscan infusion 2. No Lexiscan induced chest pain or cardiac arrhythmia. 3. Normal blood pressure and heart rate response. 4. Sestamibi/sestamibi perfusion scan pending; see separate report. Electronically Signed On 02-24-2023 10:27:57 CDT by Sonu Springer M.D. [id number]
--- NOTE | 2023-02-05 09:38 | NMCV_ITS ---
NM mitch perf SPECT r/s* [id number] Wei Leone Age: 52 Gender: M : 1970 Exam Date: 02/05/2023 09:38 Ordering Phys: Lexie Feliciano MD Technologist: ADRIENNE Erwin Exam [facility] Indications: PREOP CLEARANCE STRESS TEST Please see separate stress test report in [facility] for full findings IMAGE PROTOCOL Rest/Stress 1 Lexiscan Day Radiopharmaceutical Dose (mCi) Administration Site Administered by Rest: Tc-99m 10.4 IV ADRIENNE Mejia Sestamibi Stress:Tc-99m 32.2 IV ADRIENNE Mejia Sestamibi Rest: 05-Feb-2023 60 Discovery 630 Stress: 05-Feb-2023 30 Discovery 630 0.4mg Lexiscan. Images obtained in supine and prone position. SPECT RESULTS Technical Quality: Excellent Raw Data Analysis: Normal Image Corrections: No attenuation or motion correction applied Summed Stress Score: 0 Summed Rest Score: 1 Summed Difference Score: 0 PERFUSION FINDINGS SPECT images demonstrate homogeneous tracer distribution throughout the myocardium. FUNCTIONAL RESULTS (calculated via Gated SPECT) Stress Image LV EF (%): 47 Stress EDV (mL):150 TID: 1.06 Stress ESV (mL):80 FUNCTIONAL FINDINGS: LV systolic function is mildly reduced. IMPRESSIONS 1. Normal myocardial perfusion imaging with no evidence of ischemia 2. LV systolic function is mildly reduced. Sonu Springer MD (Electronically Signed) Final Date: 10 February 2023 11:41 S
[2023-02-05] MEDS: regadenoson 0.4 Mg/5 ml Syringe IVP (10:48)
[2023-02-05 11:16] VITALS: BP 111/76; PULSE 76
== END 2023-02-05 09:03 | disposition home or self-care (01) ==
LOC: CDL 09:07
PROVIDERS: PCP Family Medicine; Visit Provider Family Medicine
DX: Z01.818 Encounter for other preprocedural examination (principal)
CPT/HCPCS: 36415; 78452; 93017; 96374; A9500; J2785

== ENCOUNTER 2023-07-23 10:38 | Inpatient (IN) | payer MEDICARE, MEDICAID, SELFPAY ==
[2023-07-23] VITALS (12 sets, daily range): BP systolic 68–145; BP diastolic 48–94; PULSE 63–96; RESP 16–48; TEMP 36.4–36.7; O2SAT 89–99; BMI 21.2
--- NOTE | 2023-07-23 10:59 | XR_ITS ---
WS: [id number] EXAMINATION: XR chest 1V portable [id number] REASON FOR EXAM: dyspnea COMPARISON: 01/04/2022 ORDER DATE: 07/23/2023 11:03 AM TECHNIQUE: A single, portable frontal chest x-ray was obtained. X-RAY FINDINGS/IMPRESSION There is diffuse changes of emphysema.: A small right apical pneumothorax cannot be excluded and perh aps could be chronic based on the finding on the previous study apical lordotic or inspiratory expira tory views could be obtained. 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 Since previous a prominent right basal infiltrate has developed questio n aspiration pneumonia. A stat report is being called
--- NOTE | 2023-07-23 11:15 | ED_ITS ---
HPI - SOB/Dyspnea General: Chief Complaint: Shortness of Breath/Dyspnea Stated Complaint: coughing up blood/headache Time Seen by Provider: 07/23/23 10:58 History of Present Illness: HPI Narrative: 53-year-old male presents emergency department complaints of increased shortness of breath and coughing up thick sputum with specks of blood for the previous 1 d ay. He states he has a history of COPD and is normally short of breath but yesterday it became slightly worse. He does not use home oxygen at present. He denies chest pain, dizziness or lightheaded feeling. He does endorse increased fatigue and malaise and he denies fever at present. 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 Associated symptoms: Reports hemoptysis Review of Systems General: Reports: 10 or more systems reviewed and unremarkable except in HPI and below Resp: Reports: dyspnea, productive cough, wheezing, change in phlegm color and hemoptysis Neuro: Reports: headache(s) [facility] ED PFSH: Medical History Aortic aneurysm Atrial fibrillation Chest pressure Personal history of ECMO Psychiatric care Surgical History PLASTIC PARTS FABRICATOR TRIMMER (ventriculoperitoneal) shunt status Social History Smoking and tobacco status: never smoked Alcohol intake: never Substance/Drug Use: former Physical Exam Const: COMMON NORMALS: no acute distress, average body habitus, patient oriented x3 and alert HENMT: COMMON NORMALS: normocephalic, atraumatic, hearing grossly normal bilaterally, external ears normal, EAC's normal, Normal external nose present, Normal nasal mucous membranes and turbinates present and moist oral mucous membranes HEAD & SCALP: normocephalic and atraumatic NOSE: Normal external nose present and Normal nasal mucous membranes and turbinates present EXTERNAL EAR: Yes external ears normal EXTERNAL AUDITORY CANAL: EAC's normal Eye: COMMON NORMALS: Equal, round and reactive pupils present and EOMs intact bilaterally PUPIL: Yes Equal, round and reactive pupils present Neck/C-Spine: COMMON NORMALS: full ROM, no lymphadenopathy, supple, no meningeal signs and No carotid bruits Chest: COMMONS NORMALS: normal inspection of the chest and normal palpation of entire chest wall Resp: EFFORT & INSPECTION: Yes able to speak in complete sentences, Yes symmetric chest movement and Yes audible wheezes AUSCULTATION: rhonchi right lower and diminished lung sounds on the right in the lower lung amador Cardio: COMMON NORMALS: regular rate, regular rhythm, S1 normal heart sound present, S2 normal heart sound present and Peripheral pulses 2+ throughout RATE: regular rate RHYTHM: regular rhythm HEART SOUNDS: S1 normal heart sound present and S2 normal heart sound present PERIPHERAL PULSES: Peripheral pulses 2+ throughout GI: COMMON NORMALS: Normal to inspection, nondistended, normoactive bowel sounds present, Soft to palpation and non-tender PALPATION: Yes Soft to palpation Extremity: COMMON NORMALS: normal to inspection, full ROM and capillary refill normal Neuro: COMMON NORMALS: patient oriented x3 and moves all extremities SENSORIUM/ORIENTATION: Yes alert MENINGEAL SIGNS: Yes no meningeal signs Psych: COMMON NORMALS: mental status grossly normal and cooperative Skin: TRAUMA: other (Contusion with ecchymosis to the upper left arm) Procedures Chest Tube Chest Tube 1: Chest Tube Location: right, anterior axillary line and fourth interspace Size of Tube (cm): 28 Chest Tube Prep: Yes betadine prep and sterile drapes applied Local Anesthetic: lidocaine 1% Amount of anesthesia used (mL): 10 Incision Made With: #10 blade Post Procedure: sutured to skin, sterile dressing applied and other (Occlusive dressing applied) Tube Drainage: blood Amount of initial drainage (mL): 5 Post Procedure CXR?: Yes Patient Tolerated Procedure: Yes Complications: other (none) Progress: Connected to waterseal drainage container and low continuous wall suction. 28 Kazakh chest tube secured using pursestring method, Vaseline occlusive gauze, clear Tegaderm/OpSite placed after site cleaned again and Betadine allowed to dry, the dressing was dated and timed at the end of the procedure. A timeout was performed prior to initiation of the procedure to confirm correct patient correct procedure correct side, consent signed, the risk and benefits were explained to the patient and he verbalized understanding of all information provided in the consent. Course Vital Signs: Vital signs: Vital Signs Temperature 97.6 F 07/23/23 10:49 Pulse Rate 86 07/23/23 20:00 Respiratory Rate 20 H 07/23/23 20:00 Blood Pressure 103/60 07/23/23 14:51 Pulse Oximetry 96 07/23/23 20:00 Oxygen Delivery Me thod Nasal Cannula 07/23/23 20:00 Oxygen Flow Rate 6 07/23/23 20:00 MDM - SOB/Dyspnea Medical Decision Making Physical exam completed and documented, we will obtain a chest x-ray as well as laboratory evaluation I suspect most likely given his clinical exam findings that there is a large component of pneumonia exacerbating his COPD we will obtain procalcitonin, lactic acid as well as a CBC and a CMP for evaluation. We will also obtain swabs for influenza and COVID-19 evaluation screening. Given the findings that I reviewed on his chest x-ray we will also place a pleural chest tube for his right sided pneumothorax and obtain blood cultures x2 sets and will most likely contact the hospitalist for admission given his history of COPD and recent worsening shortness of breath as well as his findings of pneumonia on the chest x-ray. We will provide IV antibiotics. Chest tube was placed as noted. While awaiting admission to the medical floor the ER nursing staff advised me that the patient's oxygen saturation and blood pressure appeared to decrease significantly. I did go in and reevaluate the patient and regardless of the radiographic findings demonstrating the chest tube was in the proper place my concern was that it was dislodged or that the Pleur-evac vacuum canister had malfunction. Given the patient's immediate and significant decrease in oxygen saturation I opted to remove the initial chest tube and replace the chest tube which was successfully completed without further event. We reconnected a secondary vacuum Pleur-evac and confirmed proper placement of the chest tube with radiographic examination. Proper placement was confirmed the chest tube was securely sutured in place as well as having a occlusive dressing applied. The patient's blood pressure improved back to an acceptable normal range and his oxygen saturation improved to 95%. The patient was premedicated with a milligram of Ativan prior to the placement of the second chest tube because of his anxiety and stated immediate relief after placement of the second chest tube and receiving the Ativan. Differential Diagnosis Likely acute exacerbation of chronic obstructive airways disease and community acquired pneumonia Medical Records I reviewed the patient's medical records. Lab Data I reviewed the patient's lab results. 07/23/23 16:15 07/23/23 11:23 Labs/Radiology: Radiology Impressions Chest CT 07/23/23 16:48 IMPRESSION: 1. Multifocal new consolidation compatible with pneumonia is identified right lung. Air fluid levels are also in multiple right lung bulla. 2. There is patchy airspace and ground-glass opacity in the left lung compatible with mild pneumonitis/infiltrates. 3. Severe emphysematous changes with multiple large bulla with several bulla in the right lung containing fluid/air-fluid levels. Small right pleural effusion. Trace right pneumothorax. Right-sided chest tube is present. COMMENTS: In the absence of a history or active diagnosis of lung cancer, it is recommended that this patient with emphysema be evaluated for enrollment in a low dose CT lung cancer screening program. Chest X-Ray 07/23/23 20:50 IMPRESSION: 1. The right chest tube appears to be located outside the ribcage and pleural space. Laboratory Results WBC 12.50 10^3/uL (3.29-11.43) H 07/23/23 11: RBC 3.60 10^6/uL (3.85-5.65) L 07/23/23 11:23 Hgb 11.60 g/dL (11.27-16.99) 07/23/23 11:23 Hct 35.1 % (37-53) L 07/23/23 11:23 MCV 97.5 fl (82-101) 07/23/23 11:23 MCH 32.2 pg (27-33) 07/23/23 11: MCHC 33.0 g/dL (30-55) 07/23/23 11:23 RDW 13.8 % (12.1-15.1) 07/23/23 11:23 Plt Count 218 10^3/cmm (157-399) 07/23/23 11:23 MPV 11.2 fL (7.4-10.4) H 07/23/23 11:23 Neut % (Auto) 77.2 % 07/23/23 11:23 Lymph % (Auto) 13.1 % 07/23/23 11:23 Jennings % (Auto) 7.2 % 07/23/23 11:23 Eos % (Auto) 1.8 % 07/23/23 11:23 Baso % (Auto) 0.3 % 07/23/23 11:23 Neut # (Auto) 9.65 10^3/uL (1.8-7.7) H 07/23/23 11:23 Lymph # (Auto) 1.6 10^3/uL (0.8-4.8) 07/23/23 11:23 Jennings # (Auto) 0.9 10^3/uL (0.2-0.9) 07/23/23 11:23 Eos # (Auto) 0.2 10^3/uL (0.0-0.8) 07/23/23 11:23 Baso # (Auto) 0.0 10^3/uL (0.0-0.1) 07/23/23 11: Nucleated RBC % (auto) 0 % 07/23/23 11: Nucleated RBCs # 0.0 /100WBC 07/23/23 11:23 PT 49.60 SECONDS (12.1-14.9) H 07/23/23 11: INR 5.16 (0.8-1.2) H* 07/23/23 11: Specimen Type Venous 07/23/23 11:20 Sample Site Not Reportable 07/23/23 11:20 Aaron Test N/a 07/23/23 11:20 VBG pH 7.40 (7.32-7.42) 07/23/23 11:20 VBG pCO2 43.3 mmHg (41-51) 07/23/23 11:20 VBG pO2 21.3 mmHg (25-40) L 07/23/23 11:20 VBG HCO3 26.5 mmol/L (24-28) 07/23/23 11:20 VBG Base Excess 1.3 mmol/L (-3.0-3.0) 07/23/23 11:20 VBG Hematocrit 36.9 % (42-52) L 07/23/23 11:20 O2 Delivery Device Room air 07/23/23 11:20 Liquor Runner ID Walci 07/23/23 11:20 Sodium 138 mmol/L (136-145) 07/23/23 11:23 Potassium 4.1 mmol/L (3.5-5.1) 07/23/23 11:23 Chloride 104 mmol/L (98-107) 07/23/23 11:23 Carbon Dioxide 22 mmol/L (22-29) 07/23/23 11:23 Anion Gap 16.1 (5-19) 07/23/23 11:23 BUN 12 mg/dL (6-20) 07/23/23 11:23 Creatinine 0.7 mg/dL (0.7-1.2) 07/23/23 11:23 GFR Calculation 117.5 mL/min (90-130) 07/23/23 11:23 Glucose 112 mg/dL (65-115) 07/23/23 11:23 Calculated Osmolality 287 mOsm/kg (285-295) 07/23/23 11:23 Lactic Acid 1.6 mmol/L (0.5-2.2) 07/23/23 11:23 Calcium 9.2 mg/dL (8.5-10.5) 07/23/23 11:23 Magnesium 1.8 mg/dL (1.7-2.3) 07/23/23 11:23 Total Bilirubin 0.3 mg/dL (0.15-1.2) 07/23/23 11:23 AST 16 U/L (0-40) 07/23/23 11:23 ALT 11 U/L (0-41) 07/23/23 11:23 Alkaline Phosphatase 52 U/L (40-130) 07/23/23 11:23 NT-Pro-B Natriuret Pep 271 pg/mL (0-125) H 07/23/23 11:23 Total Protein 6.7 g/dL (6.6-8.7) 07/23/23 11:23 Albumin 4.2 g/dL (3.5-5.2) 07/23/23 11:23 Globulin 2.5 g/dL (1.3-4.6) 07/23/23 11:23 Procalcitonin 0.05 ng/mL (0-0.5) 07/23/23 11:23 Influenza Type A Ag negative (Negative) 07/23/23 11:24 Influenza Type B Ag negative (Negative) 07/23/23 11:24 SARS-CoV-2 Ag (Rapid) Negative (Negative) 07/23/23 11:24 XR interpretation done by ED provider, pending radiology final review ED provider radiology interpretation(s): Concern for right lower lobe pneumonia. Right apical Ptx noted Critical Care Time Critical Care Time: Critical Care Time: Yes Total Critical Care Time: 90 Attestation: Total critical care time was 90 minutes Discharge Plan Discharge Patient Disposition: Admitted As Inpatient Admit Provider: Mona Lorenzo Clinical Impression: Pneumothorax on right, Community acquired pneumonia Condition: Stable Coding Level of Care Code ED Certified Retinal Angiographer for Precious Cooper
[2023-07-23 11:27] LABS: Base Excess VBG 1.3 mmol/L (-3.0-3.0); Blood Gas Operator Identificat WALCI; Blood Gas Sample Type Venous; HCO3 VBG 26.5 mmol/L (24-28); Oxygen Device ROOM AIR; PCO2 VBG 43.3 mmHg (41-51); PO2 VBG 21.3 mmHg (25-40); Venous Blood Gas Hematocrit 36.9 % (42-52)
[2023-07-23] MEDS: methylPREDNISolone sod succ 60 MG in water for injection-sterile 0.96 ML 11.52 MG IVP (11:33)
--- NOTE | 2023-07-23 11:33 | ECG_ITS ---
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 Measurements Intervals [place] Rate: 78 P: 66 MI: 151 QRS: -61 QRSD: 146 T: 49 QT: 393 QTc: 449 Interpretive Statements SINUS RHYTHM INDETERMINATE AXIS RIGHT BUNDLE BRANCH BLOCK [120+ ms QRS DURATION, UPRIGHT V1, 40+ ms S IN I/aVL/V4/V5/V6] LEFT ANTERIOR FASCICULAR BLOCK [QRS AXIS <= -45, QR IN I, RS IN II] Compared to ECG 01/04/2022 17:26:33 Indeterminate axis now present Left anterior fascicular block now present Atrial flutter no longer present Left posterior fascicular block no longer present T-wave abnormality no longer present Possible ischemia no longer present Electronically Signed On 07-23-2023 12:44:20 CDT by Sonu Springer M.D. [email or web address]
[2023-07-23 11:34] LABS: Basophils % 0.3 %; Eosinophils # 0.2 10^3/uL (0.0-0.8); Eosinophils % 1.8 %; Hematocrit 35.1 % (37-53); Lymphocytes # 1.6 10^3/uL (0.8-4.8); Lymphocytes % 13.1 %; Mean Corpuscular Hemoglobin 32.2 pg (27-33); Mean Corpuscular Volume 97.5 fl (82-101); Mean Platelet Volume 11.2 fL (7.4-10.4); Monocytes # 0.9 10^3/uL (0.2-0.9); Monocytes % 7.2 %; Neutrophils # 9.65 10^3/uL (1.8-7.7); Neutrophils % 77.2 %; Nucleated Red Blood Cells % 0 %; Platelet Count 218 10^3/cmm (157-399); Red Cell Distribution Width 13.8 % (12.1-15.1)
[2023-07-23] MEDS: ipratropium-albuterol 3 mL Neb INHALATION (11:41)
[2023-07-23 11:50] LABS: Influenza A by IFA negative (Negative); Influenza B by IFA negative (Negative)
[2023-07-23 11:56] LABS: Lactic Sepsis W/Reflex 1.6 mmol/L (0.5-2.2)
[2023-07-23 12:07] LABS: NT Pro B Type Natriuretic Pept 271 pg/mL (0-125); Procalcitonin 0.05 ng/mL (0-0.5)
[2023-07-23 12:07] LABS: SARS Covid-2 Antigen Negative (Negative)
[2023-07-23 12:19] LABS: Alanine Aminotransferase 11 U/L (0-41); Albumin Level 4.2 g/dL (3.5-5.2); Alkaline Phosphatase 52 U/L (40-130); Anion Gap 16.1 (5-19); Aspartate Amino Transferase 16 U/L (0-40); Blood Urea Nitrogen 12 mg/dL (6-20); Calcium 9.2 mg/dL (8.5-10.5); Carbon Dioxide 22 mmol/L (22-29); Chloride 104 mmol/L (98-107); Creatinine Clr Calc Pharmacy 135.2405; Globulin 2.5 g/dL (1.3-4.6); Glomerular Filtration Rate 117.5 mL/min (90-130); Glucose 112 mg/dL (65-115); Magnesium 1.8 mg/dL (1.7-2.3); Osmolality Calculated 287 mOsm/kg (285-295); Potassium 4.1 mmol/L (3.5-5.1); Sodium 138 mmol/L (136-145); Total Bilirubin 0.3 mg/dL (0.15-1.2); Total Protein 6.7 g/dL (6.6-8.7)
--- NOTE | 2023-07-23 12:22 | XR_ITS ---
WS: [id number] EXAMINATION: XR chest 1V portable [id number] REASON FOR EXAM: Post- CTX placement COMPARISON: Earlier same day ORDER DATE: 07/23/2023 12:22 PM TECHNIQUE: A single, portable frontal chest x-ray was obtained. X-RAY FINDINGS: Satisfactory positioning of a right apical chest tube with reinflation of the right lung diminishing the density of the infiltrate in the right lung base.
[2023-07-23 12:25] LABS: INR 5.16 (0.8-1.2)
[2023-07-23] MEDS: cefTRIAXone 2,000 MG in sodium chloride 0.9% (plus) 50 ML 100 MG IV (12:52)
[2023-07-23] MEDS: acetaminophen 500 mg Tablet 1000 MG PO (12:54)
--- NOTE | 2023-07-23 12:59 | PC.NURSE ---
CHEST TUBE WAS PLACED AND HOOKED UP TO INTERMITTENT SUCTION
--- NOTE | 2023-07-23 13:02 | PC.NURSE ---
PT CHEST TUBE WAS PLACED AND PETROLEUM GAUZE SURROUNDED THE OP SITE. CHEST TUBE TAPED TO PT LONG WITH CHEST TUBE SITE CONNECTION TO THORASEAL OASIS TAPED. OASIS TAPED TO CYDNEY ALSO.
--- NOTE | 2023-07-23 13:08 | PC.NURSE ---
PT IS ON 4L NC
--- NOTE | 2023-07-23 13:53 | XR_ITS ---
WS: [id number] EXAMINATION: XR chest 1V portable [id number] REASON FOR EXAM: CHEST TUBE COMPARISON: None available. ORDER DATE: 07/23/2023 2:06 PM TECHNIQUE: A single, portable frontal chest x-ray was obtained. X-RAY FINDINGS: The right-sided chest tube is been retracted several centimeters and the proximal sidehole is now candice roaching inner rib margin but is still within the pleural space. There is a prominent new lenticular lucency of uncertain location but superimposing the right paratracheal space it may be displacing the anterior junction line suggesting a possible mediastinal location with pulmonary markings visible wi thin its outline however. New opacity/infiltrate has now developed through most of the right upper sindhu ng.. The left lung remains clear. No sign of pneumothorax recurrence. IMPRESSION: The rapid occurrence of diffuse infiltrate/opacity in the upper right lung and only a few hours sugge sts the possibility of pulmonary hemorrhage or rapidly evolving pneumonia or aspiration recommend CT imaging for further assessment and or differential diagnosis.
[2023-07-23] MEDS: LORazepam 2 mg/mL INJ 1 mL 1 MG IVP (14:30)
--- NOTE | 2023-07-23 14:37 | PC.NURSE ---
MD AND NURSE WENT INTO ROOM TO ASSESS PT AND WATER SEAL CHAMBER WAS NOT TIDALING OR INTERMT BUBBLING. PROVIDER PALPATED CHEST AND WAS UNSURE OF PLACEMENT. PROVIDER MADE DECISION TO PULL CHEST TUBE AND REPLACE TUBE. TUBE WAS MILKED AND HOOKED TO INTM SUCTIONING AT 10MM/HG. DRAINAGE CHAMBER SHOWED 130ML OF BRIGHT RED DRAINAGE. CHEST TUBE WAS RETAPED TO PT AND FLOOR. PT CHEST TUBE WAS ALSO RETAPED TO OASIS DRAINAGE SYSTEM TUBE.
[2023-07-23] MEDS: sodium chloride 0.9% 1,000 ML 999 ML IV ×2 (14:39→15:18)
--- NOTE | 2023-07-23 15:30 | P.HP_ITS ---
Providers/Chief Complaint Admitting Physician: Mona Lorenzo MD Primary Care Provider: Lexie Feliciano MD Chief Complaint: coughing up blood/headache History of Present Illness Wei Leone is a 53 year old male with history of COPD, does not use oxygen on daily basis, active smoker smokes half pack per day, presented with chief complaint of hemoptysis. Patient stating that for last 2 days he has been experiencing hemoptysis, today when he was coughing he notices shortness of breath got worse that prompted his visit to the ER. Patient is reporting 1 teaspoon as amount of hemoptysis with every episode. He does not carry any history of lung cancer, does not use oxygen on daily basis, In the ER he was diagnosed with apical pneumothorax chest tube was placed by the ER physician, ER physician called me via coordinator, he told me that patient is on 2 L doing well after chest tube placement, I was not notified whether chest tube position was changed or there was some malfunctioning in the ER, Third x- ray does mention that right chest tube has been retracted several centimeters and proximal sidehole is approaching in the rib but within pleural space Recent x-ray showed worsening of infiltrate with concern for alveolar hemorrhage patient takes Coumadin for DVT, at the time of evaluation patient was on 6 L facemask, heard a lot of crackles on examination requested CT chest on stat basis gave zosyn, vitamin K and FFP. Spoke with Dr. Huggins Please note, Pt was sent to [facility] from the ER, I received a call by the nurse about pt condition and his Oxygen requirement of 12 L, I requested stat transfer to ICU Review of Systems Const: Reports: chills Eyes: Denies: change in vision ENMT: Denies: throat pain Card: Reports: chest pain Resp: Reports: dyspnea and hemoptysis GI: Denies: abdominal pain : Denies: flank pain Musc: Denies: neck pain Medications/Allergies Home Medications Medication Instructions Recorded Confirmed Last Taken Type acetaminophen 325 mg tablet 325 mg PO Q4H PRN Pain 01/04/22 07/23/23 Unknown History (Tylenol) albuterol sulfate 90 mcg/actuation 2 puff inhalation Q4H PRN 01/04/22 07/23/23 Unknown History aerosol inhaler (Ventolin HFA) Shortness Of Breath escitalopram oxalate 20 mg tablet 20 mg PO BEDTIME 01/04/22 07/23/23 07/22/23 History fluticasone 250 mcg-salmeterol 50 2 inh inhalation DAILY 01/04/22 07/23/23 07/23/23 History mcg/dose blistr powdr for inhalation (Advair Diskus) naloxone 4 mg/actuation nasal spray 4 mg intranasal Q2M PRN Opioid 01/04/22 07/23/23 Unknown History Overdose atorvastatin 40 mg tablet 40 mg PO QPM 07/23/23 07/23/23 07/22/23 History warfarin 7.5 mg tablet 7.5 mg PO DAILY 07/23/23 07/23/23 07/23/23 History Allergies Allergy/AdvReac Type Severity Reaction Status Date / Time codeine Allergy ADR-Headach Verified 07/23/23 11:16 e PFSH Acute PFSH: Medical History Aortic aneurysm Atrial fibrillation Chest pressure Personal history of ECMO Psychiatric care 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 Social History Smoking and tobacco status: never smoked Alcohol intake: never Substance/Drug Use: former Vitals/I&O/Wt Last Vital Signs Temp 97.6 F 07/23/23 10:49 Pulse 86 07/23/23 14:51 Resp 22 H 07/23/23 14:51 BP 103/60 07/23/23 14:51 Pulse Ox 96 07/23/23 14:51 O2 Del Method Oxymask 07/23/23 14:51 O2 Flow Rate 10 07/23/23 14:51 07/23/23 07/23/23 07/23/23 06:59 14:59 22:59 Intake Total 50.96 / 50.96 1000 / 1050.96 Balance 50.96 / 50.96 1000 / 1050.96 Weight last 48 hrs Weight 74.843 kg Physical Exam Narrative: Thin frail male Right-sided chest tube in place Currently on 6 L facemask Multiple crackles right greater than left No active chest pain Irritable Saturating well S1, S2 Abdomen soft Nonfocal neuro exam Data 07/24/23 09:08 07/24/23 04:00 Micro: Microbiology 10/04/23 11:25 Blood Culture - Preliminary Blood SPECIMEN COLLECTED 07/23/23 11:23 Blood Culture - Preliminary Blood SPECIMEN COLLECTED A&P Assessment and plan (1) Pneumothorax on right: (2) Atrial flutter: (3) Pulmonary fibrosis: (4) Emphysematous COPD: (5) Hepatic steatosis: Plan Right apical pneumothorax status post chest tube placement by ER physician Chest ray showed worsening Concern for alveolar hemorrhage considering supratherapeutic INR We will give vitamin K and FFP 's Case discussed with Dr. Huggins Requested CT chest with contrast on stat basis Hemoptysis Concern for alveolar hemorrhage Start IV steroids and Lasix Regarding bronchoscopy and worsening we will touch with Dr. 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 The critical care time shown is in addition to time spent performing any reported separately billable procedures and includes the following: [x] Data and vital sign review and interpretation [x ] Patient assessment, examination and intervention [x] Medication orders and management [x] Patient/Family updates as able [x] Care Coordination and Documentation. Diagnoses Pneumothorax on right J93.9 Atrial flutter I48.92 Pulmonary fibrosis J84.10 Emphysematous COPD J43.9 Hepatic steatosis K76.0
--- NOTE | 2023-07-23 15:54 | PC.NURSE ---
Addendum entered by Tootie Hendricks RN 07/24/23 11:05: Pt denied alcohol use, pot and/or other drug use as I have to report to PO Original Note: Admission assessment: Pt stated he does have he lives with that can help him at home but she is in rehab right now . Will be 30 days before she can come home.
[2023-07-23] MEDS: FUROsemide 10 mg/mL SDV 10mL 60 MG IVP (16:10)
[2023-07-23] MEDS: LORazepam 2 mg/mL INJ 1 mL 0.5 MG IVP (16:10)
--- NOTE | 2023-07-23 16:46 | P.CONIM_ITS ---
Providers/Reason For Consult Consulting Physician/Specialty*: Dr. Huggins/cardiothoracic surgery Reason for Consult*: Spontaneous right pneumothorax with post chest tube pulmonary hemorrhage Requesting Physician: Dr. Lorenzo Attending Physician: Mona Lorenzo MD Primary Care Provider: Lexie Feliciano MD History of Present Illness History of Present Illness Wei Leone is a 53 year old male With a history of COPD who presented to the emergency department complaining of increasing shortness of breath and cough of thick sputum with specks of blood for about 24 hours. Over the past 2 days he feels he is probably coughed approximately 1 teaspoon of blood with each vigorous episode. ?Prior history of V-P shunt as a child. Reported that initial chest x-ray revealed apical pneumothorax. Also noted was right lower lobe infiltrate consistent with pneumonia. Apparently a 28 Tamazight right chest tube was placed. On follow-up chest x-ray the original chest tube placement appear to be nicely placed in the apex though there is another x-ray with the tube appears to be pulled back down so there is some question that maybe the tube was actually replaced due to malfunctioning of the Pleur-evac. I do note on the original chest x-ray after chest tube placement that it extended up to the apex and toward the midline incision therefore may have been retracted to remove this right angle turned. Since the most recent x-ray appears to have developed a hemorrhage in his right upper lobe. It is unclear as to whether this may be related to primary spontaneous hemorrhage from coughing or actual from chest tube placement as I did not note this opacified region prior to the chest tube placement. Mr. Leone is on warfarin related to history for atrial fibrillation. Reversing of this anticoagulated state is currently underway given most recent x-ray findings. His initial laboratory data revealed an INR of 5.16. He was noted to be in a sinus rhythm with right bundle branch block and left anterior hemiblock on EKG obtained today. Atrial flutter was no longer present. He was hospitalized back in December for presenting with a flutter with 2 1 conduction and chest discomfort. Chest/abdomen CTA from January 04 revealed negative for pulmonary embolism but there was right upper lobe pulmonary fibrosis and diffuse pulmonary emphysema. Review of Systems Const: Reports: fatigue and malaise; Denies: fever(s) Eyes: Denies: change in vision ENMT: Denies: throat pain GI: Denies: abdominal pain or nausea Musc: Denies: neck pain or back pain Neuro: Denies: headache(s) Medications/Allergies Home Medications Medication Instructions Recorded Confirmed Last Taken Type acetaminophen 325 mg tablet 325 mg PO Q4H PRN Pain 01/04/22 07/23/23 Unknown History (Tylenol) albuterol sulfate 90 mcg/actuation 2 puff inhalation Q4H PRN 01/04/22 07/23/23 Unknown History aerosol inhaler (Ventolin HFA) Shortness Of Breath escitalopram oxalate 20 mg tablet 20 mg PO BEDTIME 01/04/22 07/23/23 07/22/23 History fluticasone 250 mcg-salmeterol 50 2 inh inhalation DAILY 01/04/22 07/23/23 07/23/23 History mcg/dose blistr powdr for inhalation (Advair Diskus) naloxone 4 mg/actuation nasal spray 4 mg intranasal Q2M PRN Opioid 01/04/22 07/23/23 Unknown History Overdose atorvastatin 40 mg tablet 40 mg PO QPM 07/23/23 07/23/23 07/22/23 History warfarin 7.5 mg tablet 7.5 mg PO DAILY 07/23/23 07/23/23 07/23/23 History Allergies Allergy/AdvReac Type Severity Reaction Status Date / Time codeine Allergy ADR-Headach Verified 07/23/23 11:16 e Current Medications Generic Name Dose Route Start Last Admin Trade Name Freq PRN Reason Stop Dose Admin Furosemide 60 mg 07/23/23 15:35 07/23/23 16:10 Furosemide 10 Mg/Ml Sdv 10ml IVP 60 mg Q12H TUCKER Administration PFSH Acute PFSH: Medical History Aortic aneurysm Atrial fibrillation Chest pressure Personal history of [facility] Psychiatric care Surgical History 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 Social History Smoking and tobacco status: never smoked Alcohol intake: never Substance/Drug Use: former Vitals/I&O/Wt Last Vital Signs Temp 97.6 F 07/23/23 10:49 Pulse 86 07/23/23 14:51 Resp 22 H 07/23/23 14:51 BP 103/60 10/04/23 14:51 Pulse Ox 96 07/23/23 14:51 O2 Del Method Nasal Cannula 07/23/23 15:41 O2 Flow Rate 10 07/23/23 14:51 07/23/23 07/23/23 07/23/23 06:59 14:59 22:59 Intake Total 50.96 / 50.96 1000 / 1050.96 Output Total 150 / 150 Balance 50.96 / 50.96 850 / 900.96 Weight last 48 hrs Weight 165 lb Physical Exam Const: COMMON NORMALS: patient oriented x3 HENMT: COMMON NORMALS: normocephalic, atraumatic, hearing grossly normal bilaterally, external ears normal and Normal external nose present HEAD & SCALP: normocephalic and atraumatic NOSE: Normal external nose present EXTERNAL EAR: Yes external ears normal Neck/C-Spine: COMMON NORMALS: negative for no lymphadenopathy Chest: OTHER: Dressings in place with chest tube covered. There is no airleak noted on Pleur- evac though there is some mehrdad blood in the Pleur-evac tubing. Resp: OTHER: Decreased breath sounds right lung field anteriorly. Left side is clear. Cardio: COMMON NORMALS: regular rate, regular rhythm and No murmurs present (Cardio) RATE: regular rate RHYTHM: regular rhythm GI: COMMON NORMALS: Normal to inspection, nondistended, normoactive bowel sounds present Extremity: COMMON NORMALS: no clubbing, cyanosis or edema NARRATIVE EXTREMITY EXAM: Several tattoos. Neuro: COMMON NORMALS: patient oriented x3, no focal motor deficits and no sensory deficits noted OTHER: He does exhibit frequent mouth movements and somewhat tardive fashion Data 07/23/23 11:23 07/23/23 11:23 Micro: Microbiology 07/23/23 11:25 Blood Culture - Preliminary Blood SPECIMEN COLLECTED 07/23/23 11:23 Blood Culture - Preliminary Blood SPECIMEN COLLECTED A&P Assessment and plan (1) Pneumothorax on right: Status post ER right chest tube placement for apical pneumothorax. There is evidence for pulmonary hemorrhage though he is substantially anticoagulated. Reversal of warfarin is currently underway. 2-day history for hemoptysis. Recommendation: At this time I would recommend follow-up chest x-ray in the morning. I will continue pulmonary toilet with incentive spirometry. I would not recommend further or interventions or bronchoscopy as long as he is maintaining airway and there is no evidence for substantial ongoing large volume of mopped assist given his anticoagulated state which is currently being chemically corrected. I will follow closely with Dr. Lorenzo and our hospitalist colleagues. Consult Attestations Medical Necessity Statement: Spontaneous pneumothorax with pneumonia and recent mopped assist Coding Level of Care Code Acute Code for Chg Fwd Diagnoses Pneumothorax on right J93.9
--- NOTE | 2023-07-23 16:48 | CTR_ITS ---
PROCEDURE INFORMATION: Exam: CT Chest With Contrast; Diagnostic Exam date and time: 07/23/2023 5:23 PM Age: 53 years old Clinical indication: Other: Hemoptysis; Prior surgery; Surgery date: Post-operative (0-2 days); Surgery type: Chest tube placed TECHNIQUE: Imaging protocol: Diagnostic computed tomography of the chest with contrast. Radiation optimization: All CT scans at this facility use at least one of these dose optimization techniques: automated exposure control; mA and/or kV adjustment per patient size (includes targeted exams where dose is matched to clinical indication); or iterative reconstruction. Contrast material: OMNI 350; Contrast volume: 100 ml; Contrast route: INTRAVENOUS (IV); REPORTING DATA: Count of CT and Cardiac NM exams in prior 12 months: This patient has received [address] and 0 known cardiac nuclear medicine studies in the 12 months prior to the current study. COMPARISON: CT angio chest abdomen 01/04/2022 2:56 PM RADIATION DOSE METRICS: Total DLP (mGy-cm): 506 FINDINGS: Tubes, catheters and devices: There is a right-sided chest tube. [employer] TECH shunt catheter tubing is noted along the right neck chest and upper abdomen. Lungs: There are severe emphysematous changes. Multiple large bulla are again noted. Multifocal new consolidation compatible with pneumonia is identified right lung. Air fluid levels are also in multiple right lung bulla. There is patchy airspace and ground-glass opacity in the left lung compatible with mild pneumonitis/infiltrates. Pleural spaces: There is trace right pneumothorax. Small right pleural effusion. Heart: Unremarkable. No cardiomegaly. No pericardial effusion. No pulmonary embolism is identified. Lymph nodes: Unremarkable. No enlarged lymph nodes. Vasculature: No pulmonary embolism. Bones/joints: Unremarkable. No acute fracture. Soft tissues: Unremarkable. CT/CT chest w con* [id number] IMPRESSION: 1. Multifocal new consolidation compatible with pneumonia is identified right lung. Air fluid levels are also in multiple right lung bulla. 2. There is patchy airspace and ground-glass opacity in the left lung compatible with mild pneumonitis/infiltrates. 3. Severe emphysematous changes with multiple large bulla with several bulla in the right lung containing fluid/air-fluid levels. Small right pleural effusion. Trace right pneumothorax. Right-sided chest tube is present. COMMENTS: In the absence of a history or active diagnosis of lung cancer, it is recommended that this patient with emphysema be evaluated for enrollment in a low dose CT lung cancer screening program.
[2023-07-23] MEDS: iohexol 350 mg/mL 500 mL Btl (per mL) IV (17:35)
[2023-07-23] MEDS: methylPREDNISolone sod succ 40 MG in water for injection-sterile 1 ML 12 MG IVP (17:42)
[2023-07-23] MEDS: phytonadione (ADULT) 10 MG in sodium chloride 0.9% 50 ML 153 MG IV (17:43)
--- NOTE | 2023-07-23 20:10 | PC.NURSE ---
Addendum entered by Tootie Hendricks RN 07/23/23 20:25: Medication infiltrated in one left forearm, and bilat AC IVs. Original Note: Shift summary: Pt able to answer A & O questions correctly. Pt stated his is in rehab and she will not be out for a month. While writing this note a women came into unit and introduced herself as his fiancee. He mumbles and talks in his sleep. He has these jerking/twitching episode and can answer questions while occurring. He stated he has been having these for almost a year. Dr oLrenzo and Roberto Carlos notified, as this puts him at risk for jerking tubes out on accident. Crackles noted on lung auscultation . He was given Lasix. He has 1100ml output since arrival to ICU. He has had partial dose of IV phytonadione. He has had 4 IV infiltrate this afternoon after CT contrast in one, then that medication in the other 2. Dr Azevedo and Dr Lorenzo notified. PICC ordered. His chest tube remains patent and intact. Sangiouness drainage 250ml total output at this point.
[2023-07-23] MEDS: phytonadione (ADULT) 10 mg/mL Ampule 1 mL SUBCUT (20:34)
[2023-07-23] MEDS: morphine 4 mg/mL SDV 1 mL 2 MG IM (20:35)
--- NOTE | 2023-07-23 20:50 | XRR_ITS ---
PROCEDURE INFORMATION: Exam: XR Chest Exam date and time: 07/23/2023 8:54 PM Age: 53 years old Clinical indication: Device placement; Chest tube; Additional info: Confirm chest tube placment TECHNIQUE: Imaging protocol: Radiologic exam of the chest. Views: 1 view. COMPARISON: CT chest w con* [id number] 07/23/2023 5:23 PM FINDINGS: Tubes, catheters and devices: The right chest tube appears to be located outside the ribcage on the 2nd image. Lungs: Severe emphysema. Dense consolidations in the right upper lobe and right lower lobe. The left lung is clear. Pleural spaces: No visible pneumothorax. Heart/Mediastinum: Unremarkable. No cardiomegaly. Bones/joints: Unremarkable. Soft tissues: Soft tissue gas in the right chest wall. XR/XR chest 1V portable [id number] IMPRESSION: 1. The right chest tube appears to be located outside the ribcage and pleural space.
--- NOTE | 2023-07-23 22:15 | XRR_ITS ---
PROCEDURE INFORMATION: Exam: XR Chest Exam date and time: 07/23/2023 10:20 PM Age: 53 years old Clinical indication: Device placement; Picc; Additional info: Positive placement TECHNIQUE: Imaging protocol: Radiologic exam of the chest. Views: 1 view. COMPARISON: CR (CHEST, ) 07/23/2023 8:54 PM FINDINGS: Tubes, catheters and devices: The right chest tube is in the soft tissues lateral to the ribcage. Left PICC line with tip in the distal SVC. Right BUSINESS PROCESS CONSULTANT shunt catheter. Lungs: Dense consolidation unchanged in the right upper and lower lungs. Pleural spaces: No definite right pneumothorax. Heart/Mediastinum: Unremarkable. No cardiomegaly. Bones/joints: Unremarkable. XR/XR chest 1V portable [id number] IMPRESSION: 1. PICC line tip in the distal SVC. 2. The right chest tube is not located in the pleural space and is in the soft tissues of the chest wall.
--- NOTE | 2023-07-23 22:47 | PC.NURSE ---
Vascular Access - ASO Consulted by house charge for PICC placement. Upon arrival to room, discussed risks and benefits of procedure with patient and obtained written informed consent. Assessed BUE via ultrasound and determined the left brachial vein to be the best target vessel due to its size and lack of evidence of thrombus or stenosis. Using US guidance, MST, and sterile technique, the vein was accessed x 1 venipuncture. Device advanced without resistance, flushed and aspirated with ease. Device secured with sterile stat-lock, Biopatch, and sterile transparent occlusive dressing. Chest XR obtained and is pending radiologist confirmation. EBL < 10 mL, patient tolerated well. Reported to pt's primary nurse.
[2023-07-23] MEDS: dexmedetomidine 400 MCG in sodium chloride 0.9% (100 ml) 100 ML IV (22:55)
[2023-07-24] VITALS (26 sets, daily range): BP systolic 76–130; BP diastolic 39–79; PULSE 51–89; RESP 14–23; TEMP 36.9–37.7; O2SAT 90–100
--- NOTE | 2023-07-24 01:26 | XRR_ITS ---
PROCEDURE INFORMATION: Exam: XR Chest Exam date and time: 07/24/2023 1:29 AM Age: 53 years old Clinical indication: Shortness of breath; Patient HX: Chest tube removed due to complications; Additional info: SOB TECHNIQUE: Imaging protocol: Radiologic exam of the chest. Views: 1 view. COMPARISON: CR (CHEST, ) 07/23/2023 10:20 PM FINDINGS: Tubes, catheters and devices: Left sided PICC is in satisfactory position, with distal tip in the SVC, approximately 6 cm above the SVC/RA junction. Right SHOE STICKS REPAIRER shunt catheter re-identified. Previously seen chest tube in the soft tissues of the right lateral chest wall is no longer visualized. Lungs: Unchanged dense consolidations in the right lung and hazy airspace opacity in the left mid lung. No clear evidence of pneumothorax. No large pleural effusion. Pleural spaces: See Lungs finding. Heart/Mediastinum: Stable cardiomediastinal silhouette. Bones/joints: Unremarkable. Soft tissues: Small amount of subcutaneous emphysema seen in the right lateral chest wall. XR/XR chest 1V portable [id number] IMPRESSION: Persistent right-sided consolidations. No clear evidence of pneumothorax.
[2023-07-24] MEDS: morphine 4 mg/mL SDV 1 mL 2 MG IVP ×3 (01:31→23:12)
[2023-07-24 02:57] LABS: Hematocrit 20.5 % (37-53)
[2023-07-24] MEDS: sodium chloride 0.9% 500 ML 999 ML IV (03:27)
[2023-07-24] MEDS: piperacillin-tazobactam 3.375 GM in sodium chloride 0.9% (plus) 50 ML IV ×3 (03:28→19:35)
[2023-07-24] MEDS: FUROsemide 10 mg/mL SDV 10mL 60 MG IVP ×2 (03:34→15:43)
[2023-07-24] MEDS: methylPREDNISolone sod succ 40 MG in water for injection-sterile 1 ML 999 MG IVP (03:34)
[2023-07-24 04:26] LABS: Basophils % 0.1 %; Eosinophils % 0.1 %; Hematocrit 23.3 % (37-53); Lymphocytes # 1.2 10^3/uL (0.8-4.8); Lymphocytes % 9.4 %; Mean Corpuscular HGB Conc 31.3 g/dL (30-55); Mean Corpuscular Hemoglobin 32.7 pg (27-33); Mean Corpuscular Volume 104.5 fl (82-101); Monocytes # 0.7 10^3/uL (0.2-0.9); Monocytes % 5.7 %; Neutrophils # 10.87 10^3/uL (1.8-7.7); Neutrophils % 84.1 %; Nucleated Red Blood Cells % 0 %; Platelet Count 177 10^3/cmm (157-399); Red Blood Count 2.23 10^6/uL (3.85-5.65); Red Cell Distribution Width 14.1 % (12.1-15.1); White Blood Count 12.92 10^3/uL (3.29-11.43)
[2023-07-24 04:53] LABS: Anion Gap 13.2 (5-19); Blood Urea Nitrogen 17 mg/dL (6-20); C Reactive Protein 12.6 mg/L (0.0-4.9); Calcium 8.2 mg/dL (8.5-10.5); Carbon Dioxide 26 mmol/L (22-29); Chloride 105 mmol/L (98-107); Creatinine Clr Calc Pharmacy 135.2405; Glomerular Filtration Rate 117.5 mL/min (90-130); Glucose 149 mg/dL (65-115); Magnesium 1.6 mg/dL (1.7-2.3); Osmolality Calculated 294 mOsm/kg (285-295); Phosphorus 3.8 mg/dL (2.5-4.5); Potassium 4.2 mmol/L (3.5-5.1); Sodium 140 mmol/L (136-145)
[2023-07-24] MEDS: sodium chloride 0.9% 100 mL Bag 50 ML IV (04:58)
--- NOTE | 2023-07-24 05:49 | PC.NURSE ---
Upon arrival to shift, this nurse noticed patient was very fidgety and martínez and needed bathing. This nurse went to get stuff for a bed bath after patient assessment and patient began doing flailing jerks but sstill aware of surrroundings and able to short answer questions. Patient has bruises all over legs, very small like; therefore, this nurse asked where the bruises came from and patient states that he shoots up Meth. Patient then began flailing around due to anxiety and stating he couldn't breathe. This nurse then heard gurgling coming from insertion site of the chest tube. This nurse and another nurse then covered and dressed chest tube and physician notified and ordered for STAT xray. Findings showed that xray was out of place but pneumothorax had resolved itself. Chest tube dressing then became saturated and started leaking again and this nurse went to change again. This nurse contacted doctor for findings and doctor stated to leave as another physician will come to replace. This nurse then notified of anxiety to physician and received orders for precedex drip after PICC line had been placed. Patient then moved an chest tube fell out. Physician at bedside and gave orders to leave out and continue with leaving covered and sealed off. Patient has received a unit of plasma and now receiving a unit of blood.
--- NOTE | 2023-07-24 06:19 | PM.PN ---
Subjective Subjective: Mr. Leone appears more appropriate and calm now that he has been placed on a Precedex infusion. Substantial agitation overnight resulting in him pulling further on his chest tube and on the x-ray from 10:27 PM last night the chest tube is not in the pleural cavity. No substantial pneumothorax with consolidation again noted in the lower lobe and somewhat in the upper lobe which may be related to chest tube trauma insertion as this appeared after the chest tube was originally placed. Follow-up chest x-ray at 1:26 AM is stable without pneumothorax and again continued consolidation. Chest tube was completely out that time the nursing service had placed an occlusive dressing. Mr. Leone is resting comfortably on his side this morning. Results of CT scan from yesterday is noted particularly with the air-fluid levels and multiple large bullae. This may be spontaneous hemorrhagic related to his supratherapeutic INR. Vitals/I&O/Wt Last Vital Signs Temp 99.2 F 07/24/23 05:59 Pulse 81 07/24/23 05:59 Resp 18 07/24/23 05:59 BP 88/45 07/24/23 05:59 Pulse Ox 100 07/24/23 05:59 O2 Del Method Nasal Cannula 07/23/23 20:00 O2 Flow Rate 6 07/23/23 20:00 07/23/23 07/23/23 07/24/23 14:59 22:59 06:59 Intake Total 50.96 / 50.96 1427 / 1477.96 330 / 1807.96 Output Total 1650 / 1650 Balance 50.96 / 50.96 -223 / -172.04 330 / 157.96 Weight last 48 hrs Weight 165 lb Physical Exam Resp: OTHER: Decreased breath sounds on the right side consistent with a known consolidation. Left side remains clear. Occlusive dressing remains in place on the right chest wall with some mild Emphysema which was noted by nurses last night as well. This did not appear to have worsened. Urinary Catheter Management: Kendall: Cath Placed During This Visit: yes Reason for Continuing Indwelling Catheter: Accurate Measurement of Urinary Output in Critically Ill Patients Urinary Catheter Date of Insertion: 07/24/23 Urinary Catheter Time of Insertion: 01:43 Data 07/24/23 04:00 07/24/23 04:00 Micro: Microbiology 07/23/23 11:18 Gram Stain - Final Sputum - Expectorated Sputum 07/23/23 11:25 Blood Culture - Preliminary Blood SPECIMEN COLLECTED 07/23/23 11:23 Blood Culture - Preliminary Blood SPECIMEN COLLECTED A&P Assessment and plan (1) Pneumothorax on right: Plan Recommendation: I recommend patient be up in a chair during the day when possible to allow for continued aggressive pulmonary toilet with incentive spirometry. At this time, I would not plan to replace his chest tube given there is no substantial pneumothorax noted or effusion. Previously described pneumothorax appears to have resolved. Air-fluid levels noted emboli may be related to spontaneous hemorrhage as his INR was over 5 upon presentation. Current INR is now therapeutic. No substantial hemoptysis reported late evening by nursing service. Attestations Medical Necessity Statement*: Right-sided pneumonia with apparent right pneumothorax originally treated with chest tube which has now become dislodged. No pneumothorax noted. Coding Level of Care Code Acute Code for Chg Fwd Diagnoses Pneumothorax on right J93.9
--- NOTE | 2023-07-24 06:29 | P.PNCC_ITS ---
Critical Care Event Note The high probability of a clinically significant, sudden or life threatening deterioration of the patient's [] system(s) required my full and direct attention, intervention and personal management. The critical care time is as shown. This time is in addition to time spent performing any reported procedures but includes the following: [x] Data and vital sign review and interpretation [x] Patient assessment, examination and intervention [x] Documentation [x] Medication orders and management Critical Care Time Code activated: No Critical Care Time (min): 35 Additional information about critical care time: - Patient was agitated and restless multiple times throughout the night, continually moving in bed, pulling on his chest tube -He received doses of IM morphine, IM Ativan for his agitation -Nursing staff also lost all IVs on patient's, he was hypotensive, PICC line who was called in to place PICC line -Switch vitamin K to IM, as INR was 5, there is concern for bleeding -I was notified by nursing staff that as patient was quite agitated, continues to pull on his chest tube, it appears that the chest tube has migrated out, x- ray showed as read by the radiologist that it was outside the rib cage in the pleural space -Nursing staff tells me that he is not more short of breath, he is on 6 L, -I spoke to the ER, spoke to Dr. Irizarry, ED he advised that he will speak to his colleague Dr. Longo who put in the chest tube to take a look at the chest tube as he had put it in, -I was notified by nursing staff that patient continues to pull on the chest tube, they are worried that it might be out as they can see the holes in the side of the chest tube out outside the chest wall, patient continues to rotate in bed, and as the PICC line team was placing the PICC line, then ER physician was not able to take a look at the chest tube -I examined patient, he was lying on the chest tube on his side, denying any shortness of breath he tells me that is a lot of pain, 6 L, blood pressures 80s over 60s, normal sinus rhythm -I asked patient to rotate to the other side second take a look at the chest tube -Upon doing this, chest tube was completely out of the chest sitting on top of the bed, -I immediately provided pressure to the chest tube site, to avoid air leak -I was advised by nursing staff that under the bandage which I was placing pressure, patient had several Vaseline gauze, with dressing -Nursing staff were able to apply nylon tape to hold dressing in place, to provide some pressure -Patient was currently resting comfortably, on a Precedex drip to help with agitation I also gave him 1 milligram of IV morphine to help with his his diffuse pain -Chest x-ray performed, I did not see any pneumothorax immediately on the x-ray, -He was given a 1 l bolus, he is alert and awake, following all commands, he is quite upset with everything that is going on with him right now, restless in bed --Patient has had 2 chest x-rays this morning, no radiographic evidence of pneumothorax as per radiologist -Currently patient is INR is 1.6, patient's hemoglobin was 6.7, was given 1 unit PRBC -Currently Coumadin is on hold for history of DVT, and current anemia -Anticoagulation currently on hold Coding Level of Care Code Acute Code for Chg Kenneth
[2023-07-24] MEDS: vancomycin 1,250 MG/250 ML PIGGYBACK 200 MG IV ×3 (08:15→23:11)
[2023-07-24] MEDS: magnesium sulfate premix 1 GM/100 ML PIGGYBACK IV (08:34)
--- NOTE | 2023-07-24 10:00 | XR_ITS ---
WS: [id number] EXAMINATION: XR chest 1V portable [id number] REASON FOR EXAM: ROUTINE COMPARISON: None available. ORDER DATE: 07/24/2023 10:03 AM TECHNIQUE: A single, portable frontal chest x-ray was obtained. X-RAY FINDINGS: Left sided PICC is in satisfactory position, with distal tip in the SVC, approximately 6 cm above the SVC/RA junction. Right RISK MANAGEMENT ANALYST shunt catheter re-identified. Previously seen chest tube in the soft tissues of the right lateral chest wall is no longer visualized. Lungs: Unchanged dense consolidations in the right lung and slightly increasing airspace Opacities in the left mid lung. Small right apical pneumothorax. No large pleural effusion. Heart/Mediastinum: Stable cardiomediastinal silhouette. Bones/joints: Unremarkable. Soft tissues: Small amount of subcutaneous emphysema seen in the right lateral chest wall. IMPRESSION: Persistent right-sided consolidations. Small right apical pneumothorax Increasing patchy left midlung interstitial alveolar infiltrate
[2023-07-24 10:15] LABS: Hepatitis A Antibody IgM Non-Reactive (Nonreactive); Hepatitis B Core AB, Total Reactive (Nonreactive); Hepatitis B Surface Antigen Non-Reactive (Nonreactive); Hepatitis C Virus Antibody Reactive (Nonreactive)
--- NOTE | 2023-07-24 10:24 | PM.PN ---
Subjective Subjective: Patient this morning was anxious I called his who is stating that patient was incarcerated for a long time and he only stayed at home for about 2 days Patient is still confused however will be redirectable X-ray at 10 AM showed recurrence of pneumothorax Currently patient is on 6 L of nasal cannula saturating well Hemoglobin dropped we will give second unit PRBC today INR has been reversed Vitals/I&O/Wt Last Vital Signs Temp 99.2 F 07/24/23 05:59 Pulse 57 L 07/24/23 07:55 Resp 18 07/24/23 07:55 BP 96/47 07/24/23 06:59 Pulse Ox 97 07/24/23 07:55 O2 Del Method Nasal Cannula 07/24/23 07:55 O2 Flow Rate 6 07/24/23 07:55 07/23/23 07/24/23 07/24/23 22:59 06:59 14:59 Intake Total 1427 / 1477.96 330 / 1807.96 1000 / 1000 Output Total 1650 / 1650 1250 / 2900 Balance -223 / -172.04 -920 / -1092.04 1000 / 1000 Weight last 48 hrs Weight 74.843 kg Physical Exam Narrative: Patient is will be redirectable however agitated and confused Diminished breath sounds on right aspect left Currently on 6 L GCS 15 Crackles and rhonchi noted on lung auscultation Nonfocal neuro exam Left arm bruise S1, S2 Thin frail male Urinary Catheter Management: Kendall: Cath Placed During This Visit: yes Reason for Continuing Indwelling Catheter: Accurate Measurement of Urinary Output in Critically Ill Patients Urinary Catheter Date of Insertion: 07/24/23 Urinary Catheter Time of Insertion: 01:43 Data 07/25/23 11:07 07/25/23 03:20 Micro: Microbiology 07/23/23 11:18 Gram Stain - Final Sputum - Expectorated Sputum 07/23/23 11:25 Blood Culture - Preliminary Blood SPECIMEN COLLECTED 07/23/23 11:23 Blood Culture - Preliminary Blood SPECIMEN COLLECTED A&P Assessment and plan (1) Hepatic steatosis: (2) Emphysematous COPD: (3) Pulmonary fibrosis: (4) Community acquired pneumonia: (5) Pneumothorax on right: (6) Atrial flutter: Plan Right apical pneumothorax Chest tube was placed on 07/23 by the ER physician Overnight patient removed his chest tube In the morning chest x-ray did show resolution of pneumothorax However at 10 AM recurrence of pneumothorax noted Patient is requiring 6 L of oxygen Hypotension: Hemorrhagic in nature My concern is related to alveolar hemorrhage with chest tube placement No active hemoptysis We will give second unit PRBC today We will keep Levophed on board if we need to if MAP drops below 65 mmHg History of atrial flutter, holding Coumadin, INR subtherapeutic, patient received vitamin K and 1 unit FFP as well Considering significant volume resuscitation we will keep him on IV Lasix still has significant crackles Air-fluid level detected on CT scan: Requested QuantiFERON and daily sputum sample for next 3 days to rule out TB Patient was incarcerated and only spent 2 days at home Vancomycin and Zosyn to be continued History of substance abuse in the past Currently on clear liquid diet Full code updated Patient will be put in isolation for TB rule out Patient evaluated multiple times, updated, will speak with Dr. Huggins today Attestations Medical Necessity Statement*: Continue ICU management Diagnoses Hepatic steatosis K76.0 Emphysematous COPD J43.9 Pulmonary fibrosis J84.10 Community acquired pneumonia J18.9 Pneumothorax on right J93.9 Atrial flutter I48.92
[2023-07-24 11:47] LABS: Amphetamines Screen Urine Negative (Negative); Barbiturates Screen Urine Negative (Negative); Benzodiazepines Screen Urine Positive (Negative); Cocaine Screen Urine Negative (Negative); Opiate Screen Urine Positive (Negative); PCP Screen Urine Negative (Negative); THC Screen Urine Negative (Negative)
--- NOTE | 2023-07-24 13:57 | XR_ITS ---
WS: [id number] EXAMINATION: XR chest 1V portable [id number] REASON FOR EXAM: sob COMPARISON: None available. ORDER DATE: 07/24/2023 1:59 PM TECHNIQUE: A single, portable frontal chest x-ray was obtained. X-RAY FINDINGS: Left sided PICC is in satisfactory position, with distal tip in the SVC, approximately 6 cm above the SVC/RA junction. Right AQUATIC PHYSIOTHERAPIST shunt catheter re-identified. Previously seen chest tube in the soft tissues of the right lateral chest wall is no longer visualized. Lungs: Slightly decreased density of the consolidation in the right lung base and unchanged in the ri ght upper.. Small right apical pneumothorax no longer visualized. Variability in positioning and/or technique sug gest the possibility of a tiny right lateral costophrenic angle pneumothorax but this is not likely c linically significant if present.. Left midlung interstitial alveolar infiltrate unchanged Heart/Mediastinum: Stable cardiomediastinal silhouette. Bones/joints: Unremarkable. Soft tissues: Small amount of subcutaneous emphysema seen in the right lateral chest wall. IMPRESSION: Somewhat improving right-sided consolidations. No evidence of right apical pneumothorax Unchanged left midlung interstitial alveolar infiltrate
[2023-07-24] MEDS: methylPREDNISolone sod succ 40 MG in water for injection-sterile 1 ML 12 MG IVP (15:42)
[2023-07-24 17:24] LABS: Hematocrit 25.8 % (37-53)
[2023-07-24] MEDS: acetaminophen 500 mg Tablet PO (21:45)
[2023-07-25] VITALS (27 sets, daily range): BP systolic 104–128; BP diastolic 64–88; PULSE 55–89; RESP 10–29; TEMP 37.4; O2SAT 90–96
[2023-07-25] MEDS: metoclopramide 5 mg/mL SDV 2 mL IVP
[2023-07-25] MEDS: diphenhydrAMINE 50 mg/mL SDV 1mL 25 MG IVP (00:01)
[2023-07-25] MEDS: piperacillin-tazobactam 3.375 GM in sodium chloride 0.9% (plus) 50 ML IV ×3 (02:53→19:37)
[2023-07-25] MEDS: FUROsemide 10 mg/mL SDV 10mL 60 MG IVP ×2 (02:54→14:31)
[2023-07-25] MEDS: methylPREDNISolone sod succ 40 MG in water for injection-sterile 1 ML 12 MG IVP ×2 (03:00→16:48)
[2023-07-25] MEDS: morphine 4 mg/mL SDV 1 mL 2 MG IVP ×4 (03:24→19:18)
[2023-07-25 03:34] LABS: Basophils % 0.2 %; Eosinophils % 0.1 %; Hematocrit 24.4 % (37-53); Lymphocytes # 2.2 10^3/uL (0.8-4.8); Mean Corpuscular HGB Conc 33.6 g/dL (30-55); Mean Corpuscular Hemoglobin 31.4 pg (27-33); Mean Corpuscular Volume 93.5 fl (82-101); Mean Platelet Volume 10.4 fL (7.4-10.4); Monocytes # 2.3 10^3/uL (0.2-0.9); Monocytes % 13.4 %; Neutrophils # 12.44 10^3/uL (1.8-7.7); Neutrophils % 72.8 %; Nucleated Red Blood Cells % 0 %; Platelet Count 160 10^3/cmm (157-399); Red Blood Count 2.61 10^6/uL (3.85-5.65); Red Cell Distribution Width 15.3 % (12.1-15.1); White Blood Count 17.06 10^3/uL (3.29-11.43)
[2023-07-25 03:50] LABS: INR 1.12 (0.8-1.2)
[2023-07-25 03:57] LABS: Blood Urea Nitrogen 16 mg/dL (6-20); Calcium 8.4 mg/dL (8.5-10.5); Carbon Dioxide 30 mmol/L (22-29); Chloride 98 mmol/L (98-107); Glomerular Filtration Rate 87.9 mL/min (90-130); Glucose 150 mg/dL (65-115); Osmolality Calculated 286 mOsm/kg (285-295); Sodium 136 mmol/L (136-145)
[2023-07-25 04:37] LABS: ABG PCO2 47.7 mmHg (35-45); ABG PH Result 7.44 (7.35-7.45); Arterial Blood Gas Hematocrit 28.5 % (42-52); Base Excess ABG 7.4 mmol/L (-2.0-2.0); Blood Gas Allen Test Pos; Blood Gas Operator Identificat JB; Blood Gas Sample Site Radial, right; Blood Gas Sample Type Arterial; HCO3 ABG 32.4 mmol/L (22-26); Oxygen Device OXY MASK; PO2 ABG 72.4 mmHg (80.0-100.0)
--- NOTE | 2023-07-25 05:00 | XRR_ITS ---
PROCEDURE INFORMATION: Exam: XR Chest Exam date and time: 07/25/2023 5:03 AM Age: 53 years old Clinical indication: Condition or disease; Other: Ptx TECHNIQUE: Imaging protocol: Radiologic exam of the chest. Views: 1 view. COMPARISON: CR XR chest 1V portable [id number] 07/24/2023 2:05 PM FINDINGS: Tubes, catheters and devices: Left-sided PICC line in place. Ventriculoperitoneal shunt tubing projects over the right hemithorax. Lungs: Improved aeration in the lower lobes. Severe underlying interstitial lung disease. Pleural spaces: There appears to be right pneumothorax. This however is stable when compared to prior examinations Heart/Mediastinum: Unremarkable. No cardiomegaly. Bones/joints: Unremarkable. XR/XR chest 1V portable [id number] IMPRESSION: 1. Improved aeration in both lower lobes. Severe underlying interstitial lung disease. 2. Stable right apical pneumothorax
[2023-07-25] MEDS: ipratropium-albuterol 3 mL Neb INHALATION (07:54)
[2023-07-25] MEDS: vancomycin 1,250 MG/250 ML PIGGYBACK 200 MG IV (08:25)
--- NOTE | 2023-07-25 11:00 | XR_ITS ---
WS: [id number] EXAMINATION: XR chest 1V portable [id number] REASON FOR EXAM: SOB COMPARISON: None available. ORDER DATE: 07/25/2023 11:04 AM TECHNIQUE: A single, portable frontal chest x-ray was obtained. X-RAY FINDINGS: Left-sided PICC line in place. Ventriculoperitoneal shunt tubing projects over the right hemithorax. Lungs: Patchy small areas of consolidation as before unchanged on the right possibly slightly improve d on the left. Severe underlying interstitial lung disease. Pleural spaces: Minimal probably clinically insignificant right pneumothorax. Heart/Mediastinum: Unremarkable. No cardiomegaly. Bones/joints: Unremarkable. IMPRESSION: 1. Minimal change from previous. Minimal clinically insignificant right pneumothorax
--- NOTE | 2023-07-25 11:36 | PM.PN ---
Subjective Subjective: Is requiring 12 L of oxygen Repeat x-ray did not show any worsening of pneumothorax Patient is still requiring Levophed I do not see any significant drop in hemoglobin repeat H&H was done around 11 AM Patient is not on Precedex Complaining of pain in his neck and numbness of left arm Nonfocal neuro exam Pleasant and cooperative Vitals/I&O/Wt Last Vital Signs Temp 100 F H 07/24/23 12:35 Pulse 68 07/25/23 07:54 Resp 22 H 07/25/23 07:54 BP 100/58 07/24/23 21:30 Pulse Ox 90 07/25/23 07:54 O2 Del Method Oxymask 07/25/23 07:54 O2 Flow Rate 10 07/25/23 07:54 07/24/23 07/25/23 07/25/23 22:59 06:59 14:59 Intake Total 981 / 2821 301 / 3122 Output Total 2800 / 2800 2000 / 4800 Balance -1819 / 21 -1699 / -1678 Weight last 48 hrs Weight 75.41 kg Physical Exam Narrative: GCS 15 Bilateral breath sounds Crackles slightly better Kendall catheter in place Nonfocal neuro exam Pleasant and cooperative Currently on 12 L Levophed 2 mics Abdomen soft Urinary Catheter Management: Kendall: Cath Placed During This Visit: yes Reason for Continuing Indwelling Catheter: Accurate Measurement of Urinary Output in Critically Ill Patients Urinary Catheter Date of Insertion: 07/24/23 Urinary Catheter Time of Insertion: 01:43 Data 07/25/23 11:07 07/25/23 03:20 Micro: Microbiology 07/23/23 11:18 Gram Stain - Final Sputum - Expectorated Sputum Sputum Culture - Preliminary 07/23/23 11:25 Blood Culture - Preliminary Blood NEGATIVE TO DATE 07/23/23 11:23 Blood Culture - Preliminary Blood NEGATIVE TO DATE A&P Assessment and plan (1) Hepatic steatosis: (2) Emphysematous COPD: (3) Pulmonary fibrosis: (4) Community acquired pneumonia: (5) Pneumothorax on right: (6) Atrial flutter: Plan Acute COPD exacerbation Apical pneumothorax Status post chest tube placement which has been removed No recurrence of pneumothorax with worsening Patient is currently requiring 10 to 12 L of oxygen via nasal cannula My threshold will stay low to intubate him if he gets worse No significant hemoglobin drop H&H has been stable However he still requiring Levophed at 2 mics No further episode of hemoptysis No acute indication for embolization of bronchial vessels for active bleed Continue antibiotics Low-grade fever noted, leukocytosis worsening, 2 samples of AFB sputum sent, QuantiFERON sent as well rule out TB Currently he is being treated for community-acquired pneumonia We will touch base with Dr. Huggins today INR has been reversed, subtherapeutic Not a candidate to be on any Coumadin at this point Full code I will put him on full liquid Patient evaluated multiple time Attestations Medical Necessity Statement*: Continue ICU management Diagnoses Hepatic steatosis K76.0 Emphysematous COPD J43.9 Pulmonary fibrosis J84.10 Community acquired pneumonia J18.9 Pneumothorax on right J93.9 Atrial flutter I48.92
--- NOTE | 2023-07-25 13:04 | PC.SOCIAL ---
IMM Update pg 2 of IMM provided to patient care nurse Malini to review w/ patient. Copy provided and copy dated, initialed and placed in chart.
[2023-07-25 14:54] LABS: Adenovirus Not Detected (NOT DETECT); Chlamydia Pneumoniae Not Detected (NOT DETECT); Coronavirus 229E,HKU1,NL63,OC4 Not Detected (NOT DETECT); Human Metapneumovirus Not Detected (NOT DETECT); Human Rhinovirus/Enterovirus Not Detected (NOT DETECT); Influenza A Not Detected (NOT DETECT); Influenza A H1 Not Detected (NOT DETECT); Influenza A H1-2009 Not Detected (NOT DETECT); Influenza A H3 Not Detected (NOT DETECT); Influenza B Not Detected (NOT DETECT); Mycoplasma Pneumoniae Not Detected (NOT DETECT); Parainfluenza Virus Type 1 Not Detected (NOT DETECT); Parainfluenza Virus Type 2 Not Detected (NOT DETECT); Parainfluenza Virus Type 3 Not Detected (NOT DETECT); Parainfluenza Virus Type 4 Not Detected (NOT DETECT); Respiratory Syncytial Virus A Not Detected (NOT DETECT); Respiratory Syncytial Virus B Not Detected (NOT DETECT); SARS-COV-2 Not Detected (NOT DETECT)
[2023-07-25 15:00] LABS: Vancomycin Trough 17.4 ug/mL (10-15)
[2023-07-25] MEDS: vancomycin 1,250 MG/250 ML PIGGYBACK 250 MG IV (16:49)
[2023-07-25] MEDS: acetaminophen 500 mg Tablet PO (19:45)
--- NOTE | 2023-07-25 20:02 | PC.NURSE ---
Precedex: On arrival to shift @1900 07/25/23 Precedex was not running and not in pt room. MAR changed for 1899 to reelect this.
--- NOTE | 2023-07-25 20:19 | PC.NURSE ---
Severe Pain: Contacted Dr. Azevedo to report 10/10 pain in pts R. side. New order to discontinue Morphine order and start 1mg IVP Dilaudid Q4HR PRN. Dr. Azevedo notified of pts allergy to codeine, order to override.
[2023-07-25] MEDS: HYDROmorphone 1 mg/mL INJ 1 mL IVP (20:31)
[2023-07-26] VITALS (52 sets, daily range): BP systolic 97–132; BP diastolic 52–87; PULSE 58–118; RESP 11–71; TEMP 36.6–36.9; O2SAT 82–96
[2023-07-26] MEDS: vancomycin 1,250 MG/250 ML PIGGYBACK 250 MG IV (00:16)
[2023-07-26] MEDS: HYDROmorphone 1 mg/mL INJ 1 mL IVP ×5 (00:20→20:17)
[2023-07-26] MEDS: FUROsemide 10 mg/mL SDV 10mL 60 MG IVP (03:44)
[2023-07-26] MEDS: methylPREDNISolone sod succ 40 MG in water for injection-sterile 1 ML 12 MG IVP (03:46)
[2023-07-26] MEDS: piperacillin-tazobactam 3.375 GM in sodium chloride 0.9% (plus) 50 ML IV ×3 (03:49→19:42)
[2023-07-26 03:58] LABS: Basophils % 0.1 %; Eosinophils % 0.1 %; Hematocrit 27.3 % (37-53); Lymphocytes # 1.8 10^3/uL (0.8-4.8); Lymphocytes % 10.6 %; Mean Corpuscular HGB Conc 33.3 g/dL (30-55); Mean Corpuscular Hemoglobin 31.5 pg (27-33); Mean Corpuscular Volume 94.5 fl (82-101); Mean Platelet Volume 10.7 fL (7.4-10.4); Monocytes % 11.6 %; Neutrophils # 13.07 10^3/uL (1.8-7.7); Neutrophils % 77.1 %; Nucleated Red Blood Cells % 0 %; Platelet Count 190 10^3/cmm (157-399); Red Blood Count 2.89 10^6/uL (3.85-5.65); Red Cell Distribution Width 14.7 % (12.1-15.1); White Blood Count 16.95 10^3/uL (3.29-11.43)
[2023-07-26 04:16] LABS: INR 1.01 (0.8-1.2)
[2023-07-26 05:52] LABS: Anion Gap 11.6 (5-19); Blood Urea Nitrogen 19 mg/dL (6-20); Carbon Dioxide 32 mmol/L (22-29); Chloride 95 mmol/L (98-107); Glomerular Filtration Rate 100.7 mL/min (90-130); Glucose 126 mg/dL (65-115); Osmolality Calculated 284 mOsm/kg (285-295); Potassium 3.6 mmol/L (3.5-5.1); Sodium 135 mmol/L (136-145)
[2023-07-26] MEDS: ipratropium-albuterol 3 mL Neb INHALATION ×2 (05:59→09:41)
--- NOTE | 2023-07-26 08:02 | XRR_ITS ---
PROCEDURE INFORMATION: Exam: XR Chest Exam date and time: 07/26/2023 8:20 AM Age: 53 years old Clinical indication: Cough and dyspnea; Smoker's cough; Additional info: Ptx TECHNIQUE: Imaging protocol: Radiologic exam of the chest. Views: 1 view. COMPARISON: CR XR chest 1V portable [id number] 07/25/2023 11:10 AM FINDINGS: Lungs: There is patchy airspace disease noted in the lungs worst in the right upper and bilateral lower lobes. There is relative sparing of the left upper lobe where there is emphysematous change. Pleural spaces: Unremarkable. No pleural effusion. No pneumothorax. Heart/Mediastinum: Unremarkable. No cardiomegaly. Bones/joints: Unremarkable. A left-sided peripherally inserted central catheter is noted with the tip projected over the expected course of the superior vena cava. XR/XR chest 1V portable [id number] IMPRESSION: Patchy pneumonia.
[2023-07-26] MEDS: ondansetron 2 mg/ML SDV 2 mL 4 MG IVP (08:28)
[2023-07-26] MEDS: LORazepam 2 mg/mL INJ 1 mL 1 MG IM (08:28)
[2023-07-26] MEDS: vancomycin 1,250 MG/250 ML PIGGYBACK 200 MG IV ×3 (08:36→23:50)
--- NOTE | 2023-07-26 09:51 | PM.PN ---
Subjective Subjective: Persistent leukocytosis no signs of sepsis or fever Change IV Lasix to daily Remove Kendall catheter Cultures negative to date 3 sputum samples collected Continue on 6 L nasal cannula Vitals/I&O/Wt Last Vital Signs Temp 99.4 F 07/25/23 20:24 Pulse 86 07/26/23 09:44 Resp 22 H 07/26/23 09:44 BP 127/74 07/26/23 06:00 Pulse Ox 92 07/26/23 09:44 O2 Del Method Nasal Cannula 07/26/23 09:44 O2 Flow Rate 6 07/26/23 09:44 07/25/23 07/26/23 07/26/23 22:59 06:59 14:59 Intake Total 866.624 / 1316.624 298.500 / 1615.124 22.708 / 22.708 Output Total 1200 / 3500 Balance 866.624 / -983.376 -901.500 / -1884.876 22.708 / 22.708 Weight last 48 hrs Weight 75.342 kg Weight 75.41 kg Physical Exam Narrative: Patient is sitting comfortably in his bed Currently on 6 L nasal cannula Bilateral breath sounds Mild crackles Abdomen soft Kendall catheter in place GCS 15 Short attention span Short-term memory loss Patient is pleasant and cooperative No active chest pain Urinary Catheter Management: Kendall: Cath Placed During This Visit: yes Reason for Continuing Indwelling Catheter: Accurate Measurement of Urinary Output in Critically Ill Patients Urinary Catheter Date of Insertion: 07/24/23 Urinary Catheter Time of Insertion: 01:43 Data 07/26/23 03:41 07/26/23 03:41 Micro: Microbiology 07/23/23 11:18 Gram Stain - Final Sputum - Expectorated Sputum Sputum Culture - Final A&P Assessment and plan (1) Hepatic steatosis: (2) Emphysematous COPD: (3) Pulmonary fibrosis: (4) Community acquired pneumonia: (5) Pneumothorax on right: (6) Atrial flutter: (7) Leukocytosis: (8) Hemoptysis: Plan Cultures negative to date Persistent leukocytosis without sign of sepsis I have continued broad-spectrum IV antibiotics For persistent crackles I have continue Lasix however will change the dose to once daily instead of twice a day Remove Kendall catheter Patient clinically does not look fluid overload Hemoptysis: Improving Hemoglobin has been stable received 1 unit PRBC vitamin K and FFP Acute hypoxia related to pneumothorax currently on [address] Huggins's recommendation We will keep patient in ICU Rule out TB for multiple air-fluid bleb noted on CT chest Full code Advance diet to regular Not a candidate for DVT prophylaxis Attestations Medical Necessity Statement*: Continue ICU management Diagnoses Hepatic steatosis K76.0 Emphysematous COPD J43.9 Pulmonary fibrosis J84.10 Community acquired pneumonia J18.9 Pneumothorax on right J93.9 Atrial flutter I48.92 Leukocytosis D72.829 Hemoptysis R04.2
--- NOTE | 2023-07-26 10:10 | PC.NURSE ---
Emesis x 2 times this am. Clearish with scant offe ground flecks. Dr Lorenzo notified of first episode, no new orders. Nii admin after first episode.
[2023-07-26 13:45] LABS: Quantiferon Mitogen 6.87 IU/mL; Quantiferon Nil 0.01 IU/mL; Quantiferon TB Gold NEGATIVE (NEGATIVE)
[2023-07-26 13:54] LABS: HEP C RNA Viral Load Quant <1.18 NOT DETECTED Log IU/mL (NOT DETECTED); HEP C RNA Viral Load Quant <15 NOT DETECTED IU/mL (NOT DETECTED)
[2023-07-26] MEDS: acetaminophen 500 mg Tablet PO ×2 (14:50→20:05)
[2023-07-27] VITALS (33 sets, daily range): BP systolic 91–129; BP diastolic 51–82; PULSE 56–108; RESP 11–22; TEMP 36.3–38; O2SAT 84–96
[2023-07-27] MEDS: HYDROmorphone 1 mg/mL INJ 1 mL IVP ×3 (00:17→09:01)
[2023-07-27] MEDS: piperacillin-tazobactam 3.375 GM in sodium chloride 0.9% (plus) 50 ML IV ×3 (03:45→19:35)
[2023-07-27 05:27] LABS: Basophils % 0.1 %; Eosinophils # 0.1 10^3/uL (0.0-0.8); Eosinophils % 0.3 %; Hematocrit 27.9 % (37-53); Lymphocytes # 2.1 10^3/uL (0.8-4.8); Lymphocytes % 14.8 %; Mean Corpuscular HGB Conc 32.6 g/dL (30-55); Mean Corpuscular Hemoglobin 31.6 pg (27-33); Mean Corpuscular Volume 96.9 fl (82-101); Mean Platelet Volume 10.7 fL (7.4-10.4); Monocytes % 13.9 %; Neutrophils # 10.09 10^3/uL (1.8-7.7); Neutrophils % 70.1 %; Nucleated Red Blood Cells % 0 %; Platelet Count 221 10^3/cmm (157-399); Red Blood Count 2.88 10^6/uL (3.85-5.65); Red Cell Distribution Width 14.6 % (12.1-15.1); White Blood Count 14.42 10^3/uL (3.29-11.43)
[2023-07-27 05:43] LABS: Anion Gap 10.5 (5-19); Blood Urea Nitrogen 22 mg/dL (6-20); Calcium 8.8 mg/dL (8.5-10.5); Carbon Dioxide 35 mmol/L (22-29); Chloride 96 mmol/L (98-107); Glomerular Filtration Rate 100.7 mL/min (90-130); Glucose 105 mg/dL (65-115); Osmolality Calculated 290 mOsm/kg (285-295); Potassium 3.5 mmol/L (3.5-5.1); Sodium 138 mmol/L (136-145)
[2023-07-27 07:32] LABS: Vancomycin Trough 19.1 ug/mL (10-15)
[2023-07-27] MEDS: ipratropium-albuterol 3 mL Neb INHALATION (08:46)
[2023-07-27] MEDS: vancomycin 1,250 MG/250 ML PIGGYBACK 200 MG IV ×3 (08:59→23:23)
[2023-07-27] MEDS: FUROsemide 10 mg/mL SDV 10mL 60 MG IVP (09:17)
--- NOTE | 2023-07-27 11:33 | P.PN_ITS ---
Subjective Subjective: Oxygen requirement has not improved however no significant events over the weekend Persistent leukocytosis without bandemia or fever -3 L fluid balance No signs of sepsis Patient is on antibiotics Cultures negative Currently patient is on facemask which fluctuates between 10 to 15 L No complaining of chest pain He is very forgetful, However able to answer my questions appropriately Watching television Kendall catheter has been removed Has not required Precedex Vancomycin trough level 19 QuantiFERON test is negative, remove isolation Vitals/I&O/Wt Last Vital Signs Temp 97.4 F L 07/27/23 04:00 Pulse 74 07/27/23 08:57 Resp 13 07/27/23 09:01 BP 129/73 07/27/23 06:00 Pulse Ox 88 L 07/27/23 08:57 O2 Del Method High Flow Nasal Cannula 07/27/23 08:57 O2 Flow Rate 15 07/27/23 08:57 07/26/23 07/27/23 07/27/23 22:59 06:59 14:59 Intake Total 520 / 1642.708 300 / 1942.708 50 / 50 Output Total 300 / 675 350 / 1025 Balance 220 / 967.708 -50 / 917.708 50 / 50 Weight last 48 hrs Weight 73.981 kg Weight 75.342 kg Physical Exam Narrative: Patient is on 15 L facemask No signs of fluid overload GCS 15 Awake and alert Forgetful No signs of cellulitis Hemodynamically stable Pleasant and cooperative Forgetful Kendall catheter has been removed Urinary Catheter Management: Kendall: Cath Placed During This Visit: yes, but has since been removed by the nurse Reason for Continuing Indwelling Catheter: Accurate Measurement of Urinary Output in Critically Ill Patients Urinary Catheter Date of Insertion: 07/24/23 Urinary Catheter Time of Insertion: 01:43 Date Urinary Catheter Removed: 07/26/23 Time Urinary Catheter Discontinued: 08:13 Data 07/27/23 04:36 07/27/23 04:36 A&P Assessment and plan (1) Hemoptysis: (2) Leukocytosis: (3) Hepatic steatosis: (4) Emphysematous COPD: (5) Pulmonary fibrosis: (6) Community acquired pneumonia: (7) Pneumothorax on right: (8) Atrial flutter: Plan Acute hypoxia related to pneumothorax and COPD exacerbation Patient has been covered with antibiotics however cultures are negative TB has been ruled out QuantiFERON test is negative Isolation COVID PCR negative Apical pneumothorax status post chest tube placement at the time of admission by the ER physician, patient has remove the chest tube, since then he has not required any intervention no recurrence of pneumothorax Appreciate Dr. Huggins's recommendations Multiple blebs with air-fluid level likely related to alveolar hemorrhage versus iatrogenic pulmonary hemorrhage Patient has persistent leukocytosis Parapneumonic fusion? Continue IV antibiotics We will touch with Dr. Huggins on Friday Continue IV diuretics Hemoptysis: Resolved Status post 1 unit PRBC vitamin K and FFP Hemoglobin is 9.1 Not requiring Levophed Hemorrhagic shock: Resolved Full code Regular diet ICU bed is needed he can be transferred to [facility] Disposition: Home when patient is on 4 to 5 L of nasal cannula saturating above 90% Attestations Medical Necessity Statement*: Continue medical management Diagnoses Hemoptysis R04.2 Leukocytosis D72.829 Hepatic steatosis K76.0 Emphysematous COPD J43.9 Pulmonary fibrosis J84.10 Community acquired pneumonia J18.9 Pneumothorax on right J93.9 Atrial flutter I48.92
[2023-07-27] MEDS: acetaminophen 500 mg Tablet PO ×2 (15:01→19:35)
[2023-07-27] MEDS: cyclobenzaprine 10 mg Tablet 5 MG PO (18:25)
--- NOTE | 2023-07-27 19:19 | PC.NURSE ---
SHift summary: Pt's oxygenation has improved today. He is using high flow nasal cannula at 7lpm. He is coughing up bloody sputum, Dr Lorenzo is aware. His auscultate lung sounds this am were crackle.s At end of shift the are clear and diminished. He proactive with IS use,no reminders needed. He as been out of bed to chair twice today. He is very weak, leans and impulsive to sit. He has a walker at bedside for use. He does not complain of pain around chest tube site, diaudid stopped. He is complaining of head/neck pain. Acetaminophen helps some. He was complaining of this pain prior to admission per Dr Lorenzo. One time order of Flexeril tried, so far no help. Heat seems to help some. He does sit with his shoulders high and tensed up. He has had 1500ml of clear yellow urine output. NO BMS noted since admiit yet. He does eat and drink well.
[2023-07-27] MEDS: LORazepam 2 mg/mL INJ 1 mL 1 MG IM (19:34)
[2023-07-27] MEDS: ondansetron 2 mg/ML SDV 2 mL 4 MG IVP (19:44)
[2023-07-27] MEDS: haloperidol inj 5 mg/mL INJ 1 mL 1 MG IM (21:14)
--- NOTE | 2023-07-27 21:38 | PC.NURSE ---
Patient complaining of worsening headache and neck pain. Patient also increasingly agitated. Dr Azevedo notified. No new orders given.
[2023-07-28] VITALS (27 sets, daily range): BP systolic 86–132; BP diastolic 60–88; PULSE 63–122; RESP 13–26; TEMP 36.4–37.1; O2SAT 79–100
[2023-07-28] MEDS: LORazepam 2 mg/mL INJ 1 mL 1 MG IM ×2 (02:01→19:25)
[2023-07-28] MEDS: acetaminophen 500 mg Tablet PO ×4 (03:03→22:17)
[2023-07-28] MEDS: piperacillin-tazobactam 3.375 GM in sodium chloride 0.9% (plus) 50 ML IV ×3 (03:56→20:36)
--- NOTE | 2023-07-28 04:00 | XRR_ITS ---
PROCEDURE INFORMATION: Exam: XR Chest Exam date and time: 07/28/2023 4:46 AM Age: 53 years old Clinical indication: Condition or disease; Lung condition and disease; Pneumonia; Prior surgery; Surgery date: 6+ months; Surgery type: Checker And Packer shunt; Additional info: Pna TECHNIQUE: Imaging protocol: Radiologic exam of the chest. Views: 1 view. COMPARISON: CR (CHEST, ) 07/26/2023 8:20 AM FINDINGS: Lungs: There are normal lung volumes. Interval increased right upper lobe airspace opacities with adjacent coarse interstitial opacities. Unchanged right basilar irregular airspace opacity. Decreased adjacent right lower lung zone interstitial opacities. Decreased left lower lung zone interstitial and airspace opacities. These findings are suggestive of evolving multifocal pneumonia. Pleural spaces: No pleural effusion. No pneumothorax. Heart/Mediastinum: Normal heart size. Normal mediastinum. Midline trachea. Bones/joints: No acute osseous abnormalities seen. Soft tissues: Multiple external leads are seen overlying the chest, limiting assessment. XR/XR chest 1V portable [id number] IMPRESSION: Interval increased right upper lobe airspace opacities with adjacent coarse interstitial opacities. Unchanged right basilar irregular airspace opacity. Decreased adjacent right lower lung zone interstitial opacities. Decreased left lower lung zone interstitial and airspace opacities. These findings are suggestive of evolving multifocal pneumonia.
[2023-07-28 04:15] LABS: Basophils % 0.2 %; Eosinophils # 0.1 10^3/uL (0.0-0.8); Eosinophils % 0.9 %; Hematocrit 28.6 % (37-53); Lymphocytes # 1.9 10^3/uL (0.8-4.8); Lymphocytes % 14.8 %; Mean Corpuscular HGB Conc 32.5 g/dL (30-55); Mean Corpuscular Hemoglobin 31.6 pg (27-33); Mean Corpuscular Volume 97.3 fl (82-101); Mean Platelet Volume 10.5 fL (7.4-10.4); Monocytes % 15.6 %; Neutrophils # 8.84 10^3/uL (1.8-7.7); Neutrophils % 67.6 %; Nucleated Red Blood Cells % 0.2 %; Platelet Count 209 10^3/cmm (157-399); Red Blood Count 2.94 10^6/uL (3.85-5.65); Red Cell Distribution Width 14.5 % (12.1-15.1); White Blood Count 13.08 10^3/uL (3.29-11.43)
[2023-07-28 04:33] LABS: Anion Gap 10.3 (5-19); Blood Urea Nitrogen 22 mg/dL (6-20); Calcium 8.7 mg/dL (8.5-10.5); Carbon Dioxide 30 mmol/L (22-29); Chloride 96 mmol/L (98-107); Glomerular Filtration Rate 117.5 mL/min (90-130); Glucose 113 mg/dL (65-115); Osmolality Calculated 280 mOsm/kg (285-295); Potassium 3.3 mmol/L (3.5-5.1); Sodium 133 mmol/L (136-145)
[2023-07-28] MEDS: potassium chloride ER 20 mEq Tablet 40 MEQ PO (05:50)
--- NOTE | 2023-07-28 08:20 | PM.PN ---
Subjective Subjective: Mr. Leone has improved, he maintains an elevated white count and a persistent right upper lobe infiltrate. I have conferred with my colleague Dr. Lorenzo. We will plan for bronchoscopy tomorrow. Vitals/I&O/Wt Last Vital Signs Temp 98.8 F 07/28/23 02:18 Pulse 83 07/28/23 08:00 Resp 16 07/28/23 08:00 BP 93/62 07/28/23 06:00 Pulse Ox 89 L 07/28/23 08:00 O2 Del Method High Flow Nasal Cannula 07/28/23 08:00 O2 Flow Rate 10 07/28/23 08:00 07/27/23 07/28/23 07/28/23 22:59 06:59 14:59 Intake Total 900 / 2050 300 / 2350 Output Total 100 / 1550 500 / 2050 Balance 800 / 500 -200 / 300 Weight last 48 hrs Weight 166 lb Weight 163 lb 1.6 oz Physical Exam Urinary Catheter Management: Kendall: Cath Placed During This Visit: yes, but has since been removed by the nurse Reason for Continuing Indwelling Catheter: Accurate Measurement of Urinary Output in Critically Ill Patients Urinary Catheter Date of Insertion: 07/24/23 Urinary Catheter Time of Insertion: 01:43 Date Urinary Catheter Removed: 07/26/23 Time Urinary Catheter Discontinued: 08:13 Data 07/28/23 03:47 07/28/23 03:47 A&P Assessment and plan (1) Community acquired pneumonia: Persistent right upper lobe infiltrate with elevated white count. I have conferred with my colleague, Dr. Lorenzo we will plan for bronchoscopy tomorrow. Mr. Leone is in agreement. Attestations Medical Necessity Statement*: Persistent right upper lobe infiltrate with elevated white count Coding Level of Care Code Acute Code for Chg Fwd Diagnoses Community acquired pneumonia J18.9
[2023-07-28] MEDS: FUROsemide 10 mg/mL SDV 10mL 60 MG IVP (08:42)
[2023-07-28] MEDS: vancomycin 1,250 MG/250 ML PIGGYBACK 200 MG IV ×3 (08:42→23:35)
--- NOTE | 2023-07-28 10:25 | PC.NURSE ---
Pt slept in this am until 0900. He agreed to get of of bed. He is still as poor balance but he was steadier going to chair using walker. Immediately after finishing his breakfast he has been requesting to go back to bed. Pt encouraged to sit up until after lunch, he agreed but then is account installation specialist light 10 minutes later wanting to go back to bed.
--- NOTE | 2023-07-28 10:57 | PC.NURSE ---
Heart 135-144 wile sitting on chair. Coughing, using IS and other vagal maneuvers not successful. Pt denies feeling palpitations, dizziness, etc. Changed bed linens and assisted patient pack to bed. Heart rate then back in 90's, sinus with frequent PVCs. Dr Lorenzo notified of episode, going to order a Magnesium level.
--- NOTE | 2023-07-28 11:01 | PM.PN ---
Subjective Subjective: Patchy infiltrate however right lower lobe infiltrate seems to be getting better with diuresis and antibiotics Patient does have low-grade fever with persistent leukocytosis Plan for bronchoscopy tomorrow Patient is in agreement I have tried to update his girlfriend, it was going to voicemail Cultures negative to date QuantiFERON negative Adequate diuresis -4 L balance Hypokalemia, check mag levels telemetry showing multiple PVCs Patient complaining of neck pain without any signs of worsening of confusion No signs of meningitis Patient became agitated last night and received doses of Ativan and Haldol Vitals/I&O/Wt Last Vital Signs Temp 97.5 F L 07/28/23 08:00 Pulse 101 H 07/28/23 10:00 Resp 23 H 07/28/23 10:00 BP 98/66 07/28/23 10:00 Pulse Ox 94 07/28/23 10:00 O2 Del Method High Flow Nasal Cannula 07/28/23 10:00 O2 Flow Rate 8 07/28/23 10:00 07/27/23 07/28/23 07/28/23 22:59 06:59 14:59 Intake Total 900 / 2050 300 / 2350 400 / 400 Output Total 100 / 1550 500 / 2050 1350 / 1350 Balance 800 / 500 -200 / 300 -950 / -950 Weight last 48 hrs Weight 75.296 kg Weight 73.981 kg Physical Exam Narrative: Patient laying supine Euvolemic Bilateral breath sounds with rhonchi and crackles right greater than left Currently on 8 L nasal cannula Abdomen soft Kendall catheter has been removed Complains of neck pain Signs of meningitis negative Urinary Catheter Management: Kendall: Cath Placed During This Visit: yes, but has since been removed by the nurse Reason for Continuing Indwelling Catheter: Accurate Measurement of Urinary Output in Critically Ill Patients Urinary Catheter Date of Insertion: 07/24/23 Urinary Catheter Time of Insertion: 01:43 Date Urinary Catheter Removed: 07/26/23 Time Urinary Catheter Discontinued: 08:13 Data 07/28/23 03:47 07/28/23 03:47 Micro: Microbiology 07/25/23 11:12 Mycobacterial Smear - Preliminary Sputum - Expectorated Sputum 07/23/23 11:18 Mycobacterial Smear - Preliminary Sputum - Expectorated Sputum 07/24/23 13:15 Mycobacterial Smear - Preliminary Sputum - Expectorated Sputum A&P Assessment and plan (1) Hemoptysis: (2) Leukocytosis: (3) Hepatic steatosis: (4) Emphysematous COPD: (5) Pulmonary fibrosis: (6) Community acquired pneumonia: (7) Pneumothorax on right: (8) Atrial flutter: Plan A-fib RVR Start low-dose metoprolol Not a candidate of anticoagulating agent Wernicke's encephalopathy and Korsakoff Continue thiamine and folic acid patient is forgetful short attention span Right apical pneumothorax, no recurrence of pneumothorax since removal of chest tube Community-acquired pneumonia Currently on broad-spectrum antibiotics Low-grade fever and with persistent leukocytosis, QuantiFERON-TB negative No growth on cultures No signs of meningitis Requested Dr. Huggins for bronchoscopy so we can tailor our antibiotics patient is not on steroids which she received initially COVID PCR negative Right upper lobe worsening infiltrate Continue IV Lasix -4 L balance If his oxygen requirement stays above 10 L he may qualify for select/LTAC For now he is on 8 L We will reevaluate after bronchoscopy tomorrow PVCs potassium repleted check mag level Added low-dose metoprolol ICU related delirium added low-dose Seroquel Full code Regular diet Not a candidate for DVT prophylaxis for hemoptysis, required 1 unit PRBC FFP and vitamin K on admission Attestations Medical Necessity Statement*: Continue ICU management Diagnoses Hemoptysis R04.2 Leukocytosis D72.829 Hepatic steatosis K76.0 Emphysematous COPD J43.9 Pulmonary fibrosis J84.10 Community acquired pneumonia J18.9 Pneumothorax on right J93.9 Atrial flutter I48.92
--- NOTE | 2023-07-28 11:03 | CTR_ITS ---
PROCEDURE INFORMATION: Exam: CT Cervical Spine Without Contrast Exam date and time: 07/28/2023 4:24 PM Age: 53 years old Clinical indication: Neck pain; Additional info: Neck pain with left arm numbness TECHNIQUE: Imaging protocol: Computed tomography of the cervical spine without contrast. Radiation optimization: All CT scans at this facility use at least one of these dose optimization techniques: automated exposure control; mA and/or kV adjustment per patient size (includes targeted exams where dose is matched to clinical indication); or iterative reconstruction. REPORTING DATA: Count of CT and Cardiac NM exams in prior 12 months: This patient has received 2 known CTs and 0 known cardiac nuclear medicine studies in the 12 months prior to the current study. COMPARISON: CT chest w con* [id number] 07/23/2023 5:23 PM RADIATION DOSE METRICS: Total DLP (mGy-cm): 166.97 FINDINGS: Bones/joints: No acute fracture. Normal alignment. No severe spinal canal stenosis. Asymmetric moderate left-sided facet arthropathy at the C3-C4 segment with at least moderate neural foraminal stenosis at this level. Lungs: Emphysematous changes at the lung apices with biapical scarring. Soft tissues: Unremarkable. CT/CT cervical spin wo con* [id number] IMPRESSION: No acute findings. Asymmetric moderate left-sided facet arthropathy at the C3-C4 segment with at least moderate neural foraminal stenosis at this level.
[2023-07-28] MEDS: thiamine 100 mg Tablet PO (11:48)
[2023-07-28] MEDS: metoprolol tartrate 25 mg Tablet 12.5 MG PO ×2 (11:48→20:37)
[2023-07-28] MEDS: lidocaine 1% 5 ML in potassium chloride premix 100 ML 26.25 ML IV (11:55)
--- NOTE | 2023-07-28 14:28 | PC.SOCIAL ---
IMM Update pg 2 of IMM updated and reviewed w/ patient. Copy provided and copy dated, initialed and placed in chart.
[2023-07-28] MEDS: magnesium oxide 400 mg tablet PO (17:31)
--- NOTE | 2023-07-28 18:33 | PC.NURSE ---
Shift summary:Pt has rested in bed for bed most of the shift, he has been tired today. He has been out of bed for about 2 ours this am. His heart rate increased 135-144, unable to effect it with vagal maneuvers. Assisted him back to bed, and it went back down to 90's with PVCs Remained sinus the entire time. Metoprolol started. Potassium and magnesium replacements started. NO more rhythm hanges noted this shift. He has been having complains of neck and head pain. CT of neck completed today. Later this eveing he admits to being a heavy coffee drinker, this nurse now suspects his headache is caffeine withdrawal related. VSS. Afebrile Chest tube site is healing appropriately. He has had 2150ml of pale yellow urine output . HIs /fiance was in this evening to visit, brought him mini powdered donuts to eat.
--- NOTE | 2023-07-28 18:52 | PC.NURSE ---
Pt noted to have NOT used the IS as much today as he had yesterday. Most likely due to his heavier sleeping this shift.
[2023-07-28] MEDS: quetiapine 25 mg Tablet PO (20:37)
[2023-07-29] VITALS (18 sets, daily range): BP systolic 83–123; BP diastolic 59–84; PULSE 56–109; RESP 12–22; TEMP 36.1–36.5; O2SAT 88–100
[2023-07-29] MEDS: piperacillin-tazobactam 3.375 GM in sodium chloride 0.9% (plus) 50 ML IV ×3 (03:47→19:43)
[2023-07-29 04:38] LABS: Basophils # 0.1 10^3/uL (0.0-0.1); Basophils % 0.5 %; Eosinophils # 0.4 10^3/uL (0.0-0.8); Eosinophils % 2.9 %; Hematocrit 30.1 % (37-53); Lymphocytes # 2.7 10^3/uL (0.8-4.8); Lymphocytes % 19.3 %; Mean Corpuscular HGB Conc 32.2 g/dL (30-55); Mean Corpuscular Volume 99.3 fl (82-101); Mean Platelet Volume 10.5 fL (7.4-10.4); Monocytes # 2.3 10^3/uL (0.2-0.9); Monocytes % 15.9 %; Neutrophils # 8.58 10^3/uL (1.8-7.7); Neutrophils % 60.2 %; Nucleated Red Blood Cells % 0.1 %; Platelet Count 265 10^3/cmm (157-399); Red Blood Count 3.03 10^6/uL (3.85-5.65); Red Cell Distribution Width 14.7 % (12.1-15.1); White Blood Count 14.23 10^3/uL (3.29-11.43)
[2023-07-29 04:59] LABS: Lactate Dehydrogenase 186 U/L (135-225)
[2023-07-29 05:03] LABS: Anion Gap 14.3 (5-19); Blood Urea Nitrogen 29 mg/dL (6-20); Calcium 8.7 mg/dL (8.5-10.5); Carbon Dioxide 26 mmol/L (22-29); Chloride 103 mmol/L (98-107); Glomerular Filtration Rate 77.9 mL/min (90-130); Glucose 105 mg/dL (65-115); Osmolality Calculated 294 mOsm/kg (285-295); Potassium 4.3 mmol/L (3.5-5.1); Sodium 139 mmol/L (136-145)
[2023-07-29 05:04] LABS: Alanine Aminotransferase 9 U/L (0-41); Albumin Level 3.8 g/dL (3.5-5.2); Alkaline Phosphatase 45 U/L (40-130); Aspartate Amino Transferase 9 U/L (0-40); Globulin 2.1 g/dL (1.3-4.6); Total Bilirubin 0.6 mg/dL (0.15-1.2); Total Protein 5.9 g/dL (6.6-8.7)
[2023-07-29] MEDS: acetaminophen 500 mg Tablet PO ×3 (06:09→21:46)
--- NOTE | 2023-07-29 06:38 | PM.PN ---
Subjective Subjective: Mr. Leone rested well last night. I have previous conferred with my colleague, Dr. Lorenzo. There is a persistent right upper lobe infiltrate. It is a consensus that bronchoscopy may be beneficial for further elucidation of this. Vitals/I&O/Wt Last Vital Signs Temp 98.6 F 07/28/23 23:38 Pulse 64 07/29/23 06:00 Resp 20 H 07/29/23 06:00 BP 102/72 07/29/23 06:00 Pulse Ox 92 07/29/23 06:00 O2 Del Method High Flow Nasal Cannula 07/28/23 19:29 O2 Flow Rate 4 07/28/23 19:29 07/28/23 07/28/23 07/29/23 14:59 22:59 06:59 Intake Total 1010 / 1010 1105 / 2115 300 / 2415 Output Total 1950 / 1950 500 / 2450 Balance -940 / -940 605 / -335 300 / -35 Weight last 48 hrs Weight 158 lb Weight 166 lb Physical Exam Chest: COMMONS NORMALS: normal inspection of the chest and normal palpation of entire chest wall Resp: AUSCULTATION: rhonchi right upper Cardio: COMMON NORMALS: regular rate, regular rhythm, S1 normal heart sound present, No murmurs present (Cardio) and No rub (Cardio) RATE: regular rate RHYTHM: regular rhythm HEART SOUNDS: S1 normal heart sound present Extremity: COMMON NORMALS: no clubbing, cyanosis or edema Urinary Catheter Management: Kendall: Cath Placed During This Visit: yes, but has since been removed by the nurse Reason for Continuing Indwelling Catheter: Accurate Measurement of Urinary Output in Critically Ill Patients Urinary Catheter Date of Insertion: 07/24/23 Urinary Catheter Time of Insertion: 01:43 Date Urinary Catheter Removed: 07/26/23 Time Urinary Catheter Discontinued: 08:13 Data 07/29/23 04:25 07/29/23 04:25 Micro: Microbiology 07/23/23 11:25 Blood Culture - Final Blood NO GROWTH AFTER 5 DAYS 07/23/23 11:23 Blood Culture - Final Blood NO GROWTH AFTER 5 DAYS 07/25/23 11:12 Mycobacterial Smear - Preliminary Sputum - Expectorated Sputum 07/23/23 11:18 Mycobacterial Smear - Preliminary Sputum - Expectorated Sputum 07/24/23 13:15 Mycobacterial Smear - Preliminary Sputum - Expectorated Sputum A&P Assessment and plan (1) Community acquired pneumonia: Persistent right upper lobe infiltrate Plan: We will plan for flexible bronchoscopy with biopsies as indicated. Details and risk of this procedure as well as rationale was frankly discussed with Mr. Leone. He states understanding and is in agreement. Appropriate consent is provided for his review and signature. He has been n.p.o. since midnight. Attestations Medical Necessity Statement*: Community-acquired pneumonia with persistent right upper lobe infiltrate Coding Level of Care Code Acute Code for [facility] Diagnoses Community acquired pneumonia J18.9
[2023-07-29] MEDS: vancomycin 1,250 MG/250 ML PIGGYBACK 200 MG IV ×3 (07:56→23:58)
--- NOTE | 2023-07-29 08:20 | ANES.PREANE2 ---
Pre-Anesthetic Assessment Height/Weight: Height 1.88 m Weight 71.668 kg Temp Pulse Resp BP Pulse Ox O2 Del Method O2 Flow Rate 98.6 F 67 16 102/72 93 High Flow Nasal Cannula 3 07/28/23 23:38 07/29/23 08:00 07/29/23 08:00 07/29/23 06:00 07/29/23 08:00 07/29/23 08:00 07/29/23 08:00 Operation Date: 07/29/23 11:05 Proposed Procedures p Bronchoscopy(Not Applicable) - Cedric Huggins MD Familial anesthetic complications: none Was Beta Earnestine taken within 24 hours: N/A Was Clonidine taken within 24 hours: N/A Social Alcohol and Tobacco 0.5 pack(s) per day Exam alert, oriented x 3, clear to auscultation bilaterally and regular rate & rhythm Airway Submandibular: within normal limits Cervical ROM: within normal limits Mallampati: Class II Dentition: false and other History/ROS Other Pulmonary Chronic Obstructive Pulmonary Disease, Othopnea and Shortness of Breath Pneumo with chest tube CV/HEM aortic aneurysm None reported Hepatic Hepatitis GI None reported Metabolic Hyper[place] [facility] [place] None reported Neuropsych Anxiety, Bipolar, Depression and Transient Ischemic Attack (patient said i think i had a stroke ) Anesthetic Plan ASA status: 4 Anesthesia: General Risk of > 500 ml blood loss (7ml/kg in children): No Medications/Allergies Home Medications Medication Instructions Recorded Confirmed Last Taken Type acetaminophen 325 mg tablet 325 mg PO Q4H PRN Pain 01/04/22 07/23/23 Unknown History (Tylenol) albuterol sulfate 90 mcg/actuation 2 puff inhalation Q4H PRN 01/04/22 07/23/23 Unknown History aerosol inhaler (Ventolin HFA) Shortness Of Breath escitalopram oxalate 20 mg tablet 20 mg PO BEDTIME 01/04/22 07/23/23 07/22/23 History fluticasone 250 mcg-salmeterol 50 2 inh inhalation DAILY 01/04/22 07/23/23 07/23/23 History mcg/dose blistr powdr for inhalation (Advair Diskus) naloxone 4 mg/actuation nasal spray 4 mg intranasal Q2M PRN Opioid 01/04/22 07/23/23 Unknown History Overdose atorvastatin 40 mg tablet 40 mg PO QPM 07/23/23 07/23/2307/22/23 History warfarin 7.5 mg tablet 7.5 mg PO DAILY 07/23/23 07/23/23 07/23/23 History Allergies Allergy/AdvReac Type Severity Reaction Status Date / Time codeine Allergy ADR-Headach Verified 07/23/23 11:16 e Current Medications Generic Name Dose Route Start Last Admin Trade Name Freq PRN Reason Stop Dose Admin Acetaminophen 500 mg 07/23/23 15:35 07/29/23 06:09 Acetaminophen 500 Mg Tablet PO 500 mg Q4H PRN Administration NEEDED FOR FEVER OR PAIN Albuterol/Ipratropium 3 ml 07/23/23 15:35 07/27/23 08:46 Ipratropium-Albuterol 3 Ml Neb INHALATION 3 ml Q6H.RESP PRN Administration SHORTNESS OF BREATH Furosemide 60 mg 07/27/23 09:00 07/28/23 08:42 Furosemide 10 Mg/Ml Sdv 10ml IVP 60 mg DAILY TUCKER Administration Piperacillin Sod/Tazobactam 50 mls @ 12.5 mls/hr 07/24/23 03:30 07/29/23 07:47 Sod 3.375 gm/ Sodium Chloride IV Infused Q8H TUCKER Infusion Protocol As Directed Vancomycin/PEG/NADA/Lysine/Water 1,250 mg in 250 mls @ 200 mls/hr 07/24/23 08:00 07/29/23 07:56 Vancocin IV 200 mls/hr Q8H TUCKER Administration Lorazepam 1 mg 07/27/23 23:57 07/28/23 19:25 Lorazepam 2 Mg/Ml Inj 1 Ml IM 1 mg Q4H PRN Administration MILD AGITATION Magnesium Oxide 400 mg 07/28/23 18:00 07/28/23 17:31 Magnesium Oxide 400 Mg Tablet PO 400 mg BID TUCKER Administration Metoclopramide HCl 5 mg 07/24/23 23:45 07/25/23 00:00 Metoclopramide 5 Mg/Ml Sdv 2 Ml IVP 5 mg ONCE TUCKER Administration Metoprolol Tartrate 12.5 mg 07/28/23 11:00 07/28/23 20:37 Metoprolol Tartrate 25 Mg Tablet PO 12.5 mg BID@0900,2100 TUCKER Administration Ondansetron HCl 4 mg 07/23/23 15:35 07/27/23 19:44 Ondansetron 2 Mg/Ml Sdv 2 Ml IVP 4 mg Q6H PRN Administration NAUSEA AND VOMITING Quetiapine Fumarate 25 mg 07/28/23 21:00 07/28/23 20:37 Quetiapine 25 Mg Tablet PO 25 mg BEDTIME TUCKER Administration Thiamine Mononitrate 100 mg 07/28/23 11:15 07/28/23 11:48 Thiamine 100 Mg Tablet PO 100 mg DAILY TUCKER Administration PFS Anesthesia Medical History Aortic aneurysm Atrial fibrillation Chest pressure Personal history of ECMO Psychiatric care Surgical History 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 (ventriculoperitoneal) shunt status Social History Smoking and tobacco status: never smoked Alcohol intake: never Substance/Drug Use: former Data Anesthesia 07/29/23 04:25 07/29/23 04:25 Short CBC 07/28/23 07/29/23 Range/Units 03:47 04:25 WBC 13.08 H 14.23 H (3.29-11.43) 10^3/uL Hgb 9.30 L 9.70 L (11.27-16.99) g/dL Hct 28.6 L 30.1 L (37-53) % MCV 97.3 99.3 (82-101) fl Plt Count 209 265 (157-399) 10^3/cmm Neut % (Auto) 67.6 60.2 % Neut # (Auto) 8.84 H 8.58 H (1.8-7.7) 10^3/uL BMP 07/28/23 07/29/23 03:47 04:25 Sodium 133 L 139 Potassium 3.3 L 4.3 Chloride 96 L 103 Carbon Dioxide 30 H 26 BUN 22 H 29 H Creatinine 0.7 1.0 Glucose 113 105 Calcium 8.7 8.7 Liver Function 07/29/23 Range/Units 04:25 Total Bilirubin 0.6 (0.15-1.2) mg/dL Direct Bilirubin 0.20 (0.00-0.30) mg/dL AST 9 (0-40) U/L ALT 9 (0-41) U/L Alkaline Phosphatase 45 (40-130) U/L Albumin 3.8 (3.5-5.2) g/dL Coags 07/29/23 04:25 C-Reactive Protein 5.0 H Microbiology 07/23/23 11:25 Blood Culture - Final Blood NO GROWTH AFTER 5 DAYS 07/23/23 11:23 Blood Culture - Final Blood NO GROWTH AFTER 5 DAYS 07/25/23 11:12 Mycobacterial Smear - Preliminary Sputum - Expectorated Sputum 07/23/23 11:18 Mycobacterial Smear - Preliminary Sputum - Expectorated Sputum 07/24/23 13:15 Mycobacterial Smear - Preliminary Sputum - Expectorated Sputum Cardiac Studies: Echocardiogram 01/30/23 Sestamibi Stress Test (Cardiology) 02/05/23
[2023-07-29] MEDS: cetacaine Spray 20 gm Can 1 SPRAY TOPICAL (08:46)
--- NOTE | 2023-07-29 09:51 | PM.OP ---
Operative Report Date of procedure: July 29, 2023 Pre-op diagnosis: Persistent right upper lobe infiltrate with hemoptysis Post-op diagnosis: same Procedure done: Flexible diagnostic/therapeutic bronchoscopy Specimens removed/disposition: Bronchial washings right upper lobe Surgeon: Cedric Huggins Surgeon: Cedric Huggins MD Anesthesia: General Estimated blood loss (mL): 20 Complications: none Findings: Blood and clot extruding from anterior segment right upper lobe bronchus Condition: stable Brief History: 53-year-old smoker presented to emergency services on July 23 with complaints of shortness of breath and hemoptysis for 2 days. Small apical pneumothorax was initially treated with chest tube with subsequent resolution. Generalized infiltrates have mostly cleared except for processes in the right upper lobe. Rationale for bronchoscopy was carefully discussed as well as risk. Proper consents have been reviewed and signed. Procedure: Procedure: Mr. Leone underwent general endotracheal anesthesia with an 8.0 endotracheal tube. With adequate anesthesia, flexible bronchoscope was inserted through the endotracheal tube. In a methodical fashion the trachea, federico, both main bronchi and associated lobar bronchi were inspected. In a similar fashion the left side was inspected. Secretions were cleared as needed to allow for adequate inspection. Normal saline was used to clear blood and clots.. Specimens were collected for culture, Gram stain and cytology. Findings: There is generally blood noted from the lower trachea, federico, and both right and left main bronchi. This was greater on the right than left. Therefore, I initially inspected the left side methodically removing blood and small clots utilizing saline was performed as required. Once completed, visual inspection reveals no obvious endobronchial lesions or mucosal irregularities. Next, the greater volume of blood and clots noted, I inspected the right side. Again, I methodically irrigated and suction blood and clot from the side. Once completed, inspection revealed evidence for bleeding from the right upper lobe bronchus and specifically this appeared to be to the anterior segment. After clearance of blood, Inspection revealed no evidence for endobronchial lesion or substantial mucosal irritation. We did performed directed bronchial lavage to the right upper lobe and collected material for examination. Once completed, the scope was withdrawn under direct visualization confirming cleared secretions though there was still evidence of small amount of bleeding in the right upper lobe. Endoscopic photos were taken as required to document pathology. The patient tolerated the procedure well, was extubated, and was taken to postoperative care unit. There are no immediate family members or significant other persons to confer with the completion of the procedure.
[2023-07-29] MEDS: sodium chloride 0.9% 1,000 ML 30 ML IV (09:55)
[2023-07-29] MEDS: FUROsemide 10 mg/mL SDV 10mL 60 MG IVP (09:56)
[2023-07-29] MEDS: thiamine 100 mg Tablet PO (10:05)
[2023-07-29] MEDS: folic acid 1 mg Tablet PO (10:05)
[2023-07-29] MEDS: magnesium oxide 400 mg tablet PO ×2 (10:05→17:11)
[2023-07-29] MEDS: metoprolol tartrate 25 mg Tablet 12.5 MG PO ×2 (10:05→19:42)
--- NOTE | 2023-07-29 11:31 | PM.PN ---
Subjective Subjective: Cervical spine showing osteoarthritis Patient went for bronchoscopy Regions of bleeding: Right upper bronchus without signs of endobronchial lesion direct BAL sample sent Vitals/I&O/Wt Last Vital Signs Temp 98.6 F 07/28/23 23:38 Pulse 56 L 07/29/23 08:00 Resp 16 07/29/23 08:00 BP 113/59 07/29/23 08:00 Pulse Ox 93 07/29/23 08:00 O2 Del Method Nasal Cannula 07/29/23 08:00 O2 Flow Rate 2 07/29/23 08:00 07/28/23 07/29/23 07/29/23 22:59 06:59 14:59 Intake Total 1105 / 2115 300 / 2415 50 / 50 Output Total 500 / 2450 Balance 605 / -335 300 / -35 50 / 50 Weight last 48 hrs Weight 71.668 kg Weight 75.296 kg Physical Exam Narrative: Patient is awake and alert GCS 15 Currently requiring 2 L of oxygen Abdomen soft No signs of heart failure no active chest pain Nonfocal neuro exam Abdomen soft Pleasant and cooperative Urinary Catheter Management: Kendall: Cath Placed During This Visit: yes, but has since been removed by the nurse Reason for Continuing Indwelling Catheter: Accurate Measurement of Urinary Output in Critically Ill Patients Urinary Catheter Date of Insertion: 07/24/23 Urinary Catheter Time of Insertion: 01:43 Date Urinary Catheter Removed: 07/26/23 Time Urinary Catheter Discontinued: 08:13 Data 07/29/23 04:25 07/29/23 04:25 Micro: Microbiology 07/23/23 11:25 Blood Culture - Final Blood NO GROWTH AFTER 5 DAYS 07/23/23 11:23 Blood Culture - Final Blood NO GROWTH AFTER 5 DAYS 07/25/23 11:12 Mycobacterial Smear - Preliminary Sputum - Expectorated Sputum 07/23/23 11:18 Mycobacterial Smear - Preliminary Sputum - Expectorated Sputum 07/24/23 13:15 Mycobacterial Smear - Preliminary Sputum - Expectorated Sputum A&P Assessment and plan (1) Hemoptysis: (2) Leukocytosis: (3) Hepatic steatosis: (4) Emphysematous COPD: (5) Pulmonary fibrosis: (6) Community acquired pneumonia: (7) Pneumothorax on right: (8) Atrial flutter: Plan Hemoptysis: Intermittent episodes, however hemoglobin has remained stable Hemodynamic stable Bronchoscopy ulcer with right upper lobe bronchus anterior segment bleeding which has been cleared We will discontinue IV antibiotics once we get results of BAL if he remains stable however leukocytosis has been stable around 14,000 Atrial flutter without RVR Not a candidate for anticoagulating agent Apical pneumothorax: Resolved Tolerating diet Kendall catheter has been removed My plan is to discharge him after we get the results of bronchial lavage to decide on his final antibiotics His ox requirement has improved Acute hypoxia Currently on 2 to 3 L of oxygen Patient can be transferred to [facility] today Attestations Medical Necessity Statement*: Continue medical management Diagnoses Hemoptysis R04.2 Leukocytosis D72.829 Hepatic steatosis K76.0 Emphysematous COPD J43.9 Pulmonary fibrosis J84.10 Community acquired pneumonia J18.9 Pneumothorax on right J93.9 Atrial flutter I48.92
[2023-07-29 12:24] LABS: Apprearance, Bronch Wash Bloody (CLEAR); Color, Bronc Wash Red
[2023-07-29 13:52] LABS: Cyto Order Verification Order Verified
[2023-07-29 13:54] LABS: Total Cells Counted Bronch 200
--- NOTE | 2023-07-29 14:08 | ANE.PACU2 ---
Inpatient post-anesthesia follow up: Airway intact: Yes Vital signs: Temperature 97.7 F Pulse Rate 79 Respiratory Rate 12 Blood Pressure 98/66 Pulse Oximetry 94 Oxygen Delivery Me thod Nasal Cannula Oxygen Flow Rate 2 Fraction of Inspir ed Oxygen Hydration adequate: Yes Nausea and vomiting: No Pain level: 2 Mental status: Baseline
[2023-07-29] MEDS: lanolin oint 7 gm 1 APPLIC TOPICAL (17:11)
--- NOTE | 2023-07-29 18:11 | PC.NURSE ---
Report called to second floor. Patient to go to room 258 once he finished with his evening meal.
--- NOTE | 2023-07-29 18:45 | PC.NURSE ---
Patient transferred to second floor room 258. Patient had no questions at the time of transfer, resting comfortably in bed on 2L NC. on the phone with patient while transfer and give room number. Chart left with staff at front desk coordinator. All belongings with patient at bedside.
[2023-07-29] MEDS: oxyCODONE-APAP 5-325 mg Tablet 1 TAB PO (19:41)
[2023-07-29] MEDS: LORazepam 2 mg/mL INJ 1 mL 1 MG IM (21:47)
[2023-07-30] VITALS (10 sets, daily range): BP systolic 97–109; BP diastolic 57–68; PULSE 72–90; RESP 16–22; TEMP 35.9–36.8; O2SAT 86–96
[2023-07-30] MEDS: oxyCODONE-APAP 5-325 mg Tablet 1 TAB PO ×2 (01:45→15:58)
[2023-07-30] MEDS: piperacillin-tazobactam 3.375 GM in sodium chloride 0.9% (plus) 50 ML IV ×3 (05:10→20:40)
[2023-07-30 05:54] LABS: Basophils % 0.2 %; Eosinophils # 0.1 10^3/uL (0.0-0.8); Eosinophils % 0.4 %; Hematocrit 28.9 % (37-53); Lymphocytes # 2.3 10^3/uL (0.8-4.8); Lymphocytes % 12.2 %; Mean Corpuscular HGB Conc 31.8 g/dL (30-55); Mean Corpuscular Hemoglobin 31.5 pg (27-33); Mean Platelet Volume 10.2 fL (7.4-10.4); Monocytes # 2.1 10^3/uL (0.2-0.9); Monocytes % 11.3 %; Neutrophils # 14.07 10^3/uL (1.8-7.7); Neutrophils % 74.9 %; Nucleated Red Blood Cells % 0 %; Platelet Count 280 10^3/cmm (157-399); Red Blood Count 2.92 10^6/uL (3.85-5.65); White Blood Count 18.77 10^3/uL (3.29-11.43)
[2023-07-30 06:16] LABS: Anion Gap 14.3 (5-19); Blood Urea Nitrogen 26 mg/dL (6-20); Calcium 8.9 mg/dL (8.5-10.5); Carbon Dioxide 28 mmol/L (22-29); Chloride 99 mmol/L (98-107); Glomerular Filtration Rate 117.5 mL/min (90-130); Glucose 114 mg/dL (65-115); Osmolality Calculated 290 mOsm/kg (285-295); Potassium 4.3 mmol/L (3.5-5.1); Sodium 137 mmol/L (136-145)
--- NOTE | 2023-07-30 06:40 | P.PN_ITS ---
Subjective Subjective: No significant events overnight Patient has been transferred out of ICU Persistent leukocytosis with worsening noted today However he has been afebrile Cultures negative to date Neutrophil predominant bronchial lavage Oxygen requirement has improved Vitals/I&O/Wt Last Vital Signs Temp 97.6 F 07/30/23 04:58 Pulse 78 07/30/23 04:58 Resp 18 07/30/23 04:58 BP 99/60 07/30/23 04:58 Pulse Ox 96 07/30/23 04:58 O2 Del Method High Flow Nasal Cannula 07/29/23 20:00 O2 Flow Rate 1.5 07/29/23 20:00 07/29/23 07/29/23 07/30/23 14:59 22:59 06:59 Intake Total 540 / 540 1660 / 2200 540 / 2740 Output Total 900 / 900 200 / 1100 600 / 1700 Balance -360 / -360 1460 / 1100 -60 / 1040 Weight last 48 hrs Weight 71.668 kg Weight 71.668 kg Physical Exam Narrative: Awake and alert GCS 15 Nonfocal neuro exam Neck pain Signs of dehydration improved Tolerating diet 2 L nasal cannula S1, S2 Urinary Catheter Management: Kendall: Cath Placed During This Visit: yes, but has since been removed by the nurse Reason for Continuing Indwelling Catheter: Accurate Measurement of Urinary Output in Critically Ill Patients Urinary Catheter Date of Insertion: 07/24/23 Urinary Catheter Time of Insertion: 01:43 Date Urinary Catheter Removed: 07/26/23 Time Urinary Catheter Discontinued: 08:13 Data 07/30/23 05:26 07/30/23 05:26 A&P Assessment and plan (1) Hemoptysis: (2) Leukocytosis: (3) Hepatic steatosis: (4) Emphysematous COPD: (5) Pulmonary fibrosis: (6) Community acquired pneumonia: (7) Pneumothorax on right: (8) Atrial flutter: Plan Persistent leukocytosis Afebrile No active cultures TB ruled out Currently on broad-spectrum antibiotics I will continue his antibiotics until I see final bronchial lavage results Apical pneumothorax chest tube has been removed currently requiring nasal cannula oxygen supplementation Current acquired pneumonia continue antibiotics Acute hypoxia Oxygen requirement has improved Hemoptysis: Resolved Status post 1 unit PRBC FFP and vitamin K: Hemoglobin stable Disposition: We will discharge home once we see bronchoalveolar lavage results 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
[2023-07-30] MEDS: magnesium oxide 400 mg tablet PO ×2 (08:16→17:32)
[2023-07-30] MEDS: thiamine 100 mg Tablet PO (08:16)
[2023-07-30] MEDS: metoprolol tartrate 25 mg Tablet 12.5 MG PO ×2 (08:16→20:40)
[2023-07-30] MEDS: folic acid 1 mg Tablet PO (08:16)
[2023-07-30] MEDS: acetaminophen 500 mg Tablet PO (08:17)
[2023-07-30] MEDS: vancomycin 1,250 MG/250 ML PIGGYBACK 200 MG IV (08:18)
--- NOTE | 2023-07-30 12:30 | PC.SOCIAL ---
IMM Updated Updated pt on IMM. No questions voiced. Provided pt copy. Initialed, dated, & timed copy in chart.
--- NOTE | 2023-07-30 16:25 | PC.NURSE ---
Report received from Familia GOMEZ on pt. This nurse will resume care for this pt. for the remainder of the shift
[2023-07-30] MEDS: doxycycline 100 mg Tablet PO (17:32)
[2023-07-30] MEDS: LORazepam 2 mg/mL INJ 1 mL 1 MG IM (17:40)
[2023-07-31] VITALS (7 sets, daily range): BP systolic 91–109; BP diastolic 55–72; PULSE 71–88; RESP 16–18; TEMP 35.9; O2SAT 90–97
[2023-07-31] MEDS: acetaminophen 500 mg Tablet PO (00:05)
[2023-07-31] MEDS: piperacillin-tazobactam 3.375 GM in sodium chloride 0.9% (plus) 50 ML IV (04:06)
[2023-07-31] MEDS: oxyCODONE-APAP 5-325 mg Tablet 1 TAB PO ×2 (04:08→10:33)
[2023-07-31 05:14] LABS: Basophils # 0.1 10^3/uL (0.0-0.1); Basophils % 0.5 %; Eosinophils # 0.5 10^3/uL (0.0-0.8); Eosinophils % 3.4 %; Hematocrit 29.1 % (37-53); Lymphocytes # 2.2 10^3/uL (0.8-4.8); Lymphocytes % 13.5 %; Mean Corpuscular HGB Conc 32.3 g/dL (30-55); Mean Corpuscular Hemoglobin 31.8 pg (27-33); Mean Corpuscular Volume 98.3 fl (82-101); Mean Platelet Volume 10.1 fL (7.4-10.4); Monocytes # 1.6 10^3/uL (0.2-0.9); Monocytes % 9.7 %; Neutrophils % 71.8 %; Nucleated Red Blood Cells % 0 %; Platelet Count 309 10^3/cmm (157-399); Red Blood Count 2.96 10^6/uL (3.85-5.65); Red Cell Distribution Width 15.2 % (12.1-15.1); White Blood Count 16.02 10^3/uL (3.29-11.43)
[2023-07-31] MEDS: metoprolol tartrate 25 mg Tablet 12.5 MG PO (08:39)
[2023-07-31] MEDS: magnesium oxide 400 mg tablet PO (08:39)
[2023-07-31] MEDS: doxycycline 100 mg Tablet PO (08:39)
[2023-07-31] MEDS: folic acid 1 mg Tablet PO (08:39)
[2023-07-31] MEDS: thiamine 100 mg Tablet PO (08:40)
--- NOTE | 2023-07-31 09:44 | P.DS_ITS ---
Discharge Providers Date of Admission: 07/23/23 15:35 Date of Discharge: July 31, 2023 Attending Provider at Admission: Mona Lorenzo MD Attending Provider at Discharge: Mona Lorenzo MD Primary Care Provider: Lexie Feliciano MD Diagnoses at Discharge Discharge Diagnosis (1) Hemoptysis: Status: Acute (2) Leukocytosis: Status: Acute (3) Hepatic steatosis: Status: Acute (4) Emphysematous COPD: Status: Acute (5) Pulmonary fibrosis: Status: Acute (6) Community acquired pneumonia: Status: Acute (7) Pneumothorax on right: Status: Acute (8) Atrial flutter: Status: Acute Reason for Visit Reason for Visit: coughing up blood/headache Hospital Course Hospital Course 53-year male who was admitted for management evaluation of hemoptysis, acute hypoxia related to right apical pneumothorax, chest tube was placed by the ER physician which was readjusted, Dr. Huggins was consulted, patient overnight removed his chest tube, there was no recurrence of apical pneumothorax after the removal of chest tube, he remained in ICU for about 5 days, considering multiple blebs with a fluid level he remained on IV antibiotics vancomycin and Zosyn, TB was ruled out, QuantiFERON negative, AFB smear negative, secondary to persistent leukocytosis I requested for bronchoscopy, bronchoalveolar lavage showed predominant neutrophils without any organisms, he remained afebrile, patient suffered from hemoptysis and alveolar hemorrhage which got worse after chest tube placement likely iatrogenic traumatic placement into the bleb which eroded the vessel, required 1 unit PRBC vitamin K and FFP to reverse his INR, Coumadin was held, he did not show any signs of RVR despite send history of atrial flutter. He does have positive antibodies for hepatitis C however hepatitis C quantitative PCR did not show significant growth, he may follow-up with his PCP to keep an eye he is not showing any signs of liver cirrhosis. Initially he was requiring heated high flow 8 to 10 L which we were able to wean off gradually down to 2 to 3 L regular nasal cannula. Patient will go home he is requesting in-home services He does have memory deficit, he was kept on thiamine and folic acid likely has component of Warnicke's encephalopathy. Physical Exam Narrative: Awake and alert Currently on 3 L GCS 15 No active complaints No chest pain No shortness of breath Able to walk independently No sign of confusion Pleasant and cooperative Urinary Catheter Management: Kendall: Cath Placed During This Visit: yes, but has since been removed by the nurse Reason for Continuing Indwelling Catheter: Accurate Measurement of Urinary Output in Critically Ill Patients Urinary Catheter Date of Insertion: 07/24/23 Urinary Catheter Time of Insertion: 01:43 Date Urinary Catheter Removed: 07/26/23 Time Urinary Catheter Discontinued: 08:13 Discharge Data Studies Completed and Pending Completed Studies During Hospitalization Category Date Time Status CT cervical spin wo con* [id number] Routine Cat Scan 07/28/23 11:[address] chest w con* [id number] Stat Cat Scan 07/23/23 16:48 Completed CXRP [XR chest 1V portable [id number]] Stat Exams 07/24/23 13:57 Completed XR chest 1V portable [id number] Routine Exams 07/24/23 10:00 Completed XR chest 1V portable [id number] Routine Exams 07/25/23 05:00 Completed XR chest 1V portable [id number] Routine Exams 07/26/23 08:02 Completed XR chest 1V portable [id number] Routine Exams 07/28/23 04:00 Completed XR chest 1V portable [id number] Stat Exams 07/23/23 10:59 Completed XR chest 1V portable [id number] Stat Exams 07/23/23 12:22 Completed XR chest 1V portable [id number] Stat Exams 07/23/23 13:53 Completed XR chest 1V portable [id number] Stat Exams 07/23/23 20:50 Completed XR chest 1V portable [id number] Stat Exams 07/23/23 22:15 Completed XR chest 1V portable [id number] Stat Exams 07/24/23 01:26 Completed XR chest 1V portable [id number] Stat Exams 07/25/23 11:00 Completed Pending at discharge Category Date Time Status AFB [Mycobacteria, Culture w/Fluor] Routine Lab 07/24/23 13:15 Results AFB [Mycobacteria, Culture w/Fluor] Routine Lab 07/25/23 11:12 Results Aspergillus AG,EIA,Serum Routine Lab 07/28/23 11:07 Received Bronch Washing Culture & GS Routine Lab 07/29/23 09:06 Results Fungal Culture not HR/SK/BL Routine Lab 07/29/23 09:06 Received Legionella Pneumophilla DFA Routine Lab 07/29/23 09:06 Received MRSA [Methicillin Resistant S.aureu] Routine Lab 07/30/23 10:55 Received Mycobacteria, Culture w/Fluor Routine Lab 07/23/23 11:18 Results Mycobacteria, Culture w/Fluor Routine Lab 07/29/23 09:06 Received Cytology [PTH] Routine Pth 07/29/23 09:06 Received Radiology Impressions Chest CT 07/23/23 16:48 IMPRESSION: 1. Multifocal new consolidation compatible with pneumonia is identified right lung. Air fluid levels are also in multiple right lung bulla. 2. There is patchy airspace and ground-glass opacity in the left lung compatible with mild pneumonitis/infiltrates. 3. Severe emphysematous changes with multiple large bulla with several bulla in the right lung containing fluid/air-fluid levels. Small right pleural effusion. Trace right pneumothorax. Right-sided chest tube is present. COMMENTS: In the absence of a history or active diagnosis of lung cancer, it is recommended that this patient with emphysema be evaluated for enrollment in a low dose CT lung cancer screening program. Chest X-Ray 07/28/23 04:00 IMPRESSION: Interval increased right upper lobe airspace opacities with adjacent coarse interstitial opacities. Unchanged right basilar irregular airspace opacity. Decreased adjacent right lower lung zone interstitial opacities. Decreased left lower lung zone interstitial and airspace opacities. These findings are suggestive of evolving multifocal pneumonia. Cervical Spine CT 07/28/23 11:03 IMPRESSION: No acute findings. Asymmetric moderate left-sided facet arthropathy at the C3-C4 segment with at least moderate neural foraminal stenosis at this level. Laboratory Results WBC 16.02 10^3/uL (3.29-11.43) H 07/31/23 04:59 RBC 2.96 10^6/uL (3.85-5.65) L 07/31/23 04:59 Hgb 9.40 g/dL (11.27-16.99) L 07/31/23 04:59 Hct 29.1 % (37-53) L 07/31/23 04:59 MCV 98.3 fl (82-101) 07/31/23 04:59 MCH 31.8 pg (27-33) 07/31/23 04:59 MCHC 32.3 g/dL (30-55) 07/31/23 04:59 RDW 15.2 % (12.1-15.1) H 07/31/23 04:59 Plt Count 309 10^3/cmm (157-399) 07/31/23 04:59 MPV 10.1 fL (7.4-10.4) 07/31/23 04:59 Neut % (Auto) 71.8 % 07/31/23 04:59 Lymph % (Auto) 13.5 % 07/31/23 04:59 [place] % (Auto) 9.7 % 07/31/23 04:59 Eos % (Auto) 3.4 % 07/31/23 04:59 Baso % (Auto) 0.5 % 07/31/23 04:59 Neut # (Auto) 11.50 10^3/uL (1.8-7.7) H 07/31/23 04:59 Lymph # (Auto) 2.2 10^3/uL (0.8-4.8) 07/31/23 04:59 [place] # (Auto) 1.6 10^3/uL (0.2-0.9) H 07/31/23 04:59 Eos # (Auto) 0.5 10^3/uL (0.0-0.8) 07/31/23 04:59 Baso # (Auto) 0.1 10^3/uL (0.0-0.1) 07/31/23 04:59 Nucleated RBC % (auto) 0 % 07/31/23 04:59 Nucleated RBCs # 0.0 /100WBC 07/31/23 04:59 PT 13.60 SECONDS (12.1-14.9) 07/26/23 03:41 INR 1.01 (0.8-1.2) 07/26/23 03:41 Specimen Type Arterial 07/25/23 04:25 Sample Site Radial, right 07/25/23 04:25 ABG pH 7.44 (7.35-7.45) 07/25/23 04:25 ABG pCO2 47.7 mmHg (35-45) H 07/25/23 04:25 ABG pO2 72.4 mmHg (80.0-100.0) L 07/25/23 04:25 ABG HCO3 32.4 mmol/L (22-26) H 07/25/23 04:25 ABG Base Excess 7.4 mmol/L (-2.0-2.0) H 07/25/23 04:25 Aaron Test Pos 07/25/23 04:25 VBG pH 7.40 (7.32-7.42) 07/23/23 11:20 VBG pCO2 43.3 mmHg (41-51) 07/23/23 11:20 VBG pO2 21.3 mmHg (25-40) L 07/23/23 11:20 VBG HCO3 26.5 mmol/L (24-28) 07/23/23 11:20 VBG Base Excess 1.3 mmol/L (-3.0-3.0) 07/23/23 11:20 VBG Hematocrit 36.9 % (42-52) L 07/23/23 11:20 Hematocrit 28.5 % (42-52) L 07/25/23 04:25 O2 Delivery Device Oxy mask 07/25/23 04:25 O2 Liters/Min 10.0 % 07/25/23 04:25 Child Day Care Teacher ID Sd 07/25/23 04:25 Sodium 137 mmol/L (136-145) 07/30/23 05:26 Potassium 4.3 mmol/L (3.5-5.1) 07/30/23 05:26 Chloride 99 mmol/L (98-107) 07/30/23 05:26 Carbon Dioxide 28 mmol/L (22-29) 07/30/23 05:26 Anion Gap 14.3 (5-19) 07/30/23 05:26 BUN 26 mg/dL (6-20) H 07/30/23 05:26 Creatinine 0.7 mg/dL (0.7-1.2) 07/30/23 05:26 GFR Calculation 117.5 mL/min (90-130) 07/30/23 05:26 Glucose 114 mg/dL (65-115) 07/30/23 05:26 Calculated Osmolality 290 mOsm/kg (285-295) 07/30/23 05:26 Lactic Acid 1.6 mmol/L (0.5-2.2) 07/23/23 11:23 Calcium 8.9 mg/dL (8.5-10.5) 07/30/23 05:26 Phosphorus 3.8 mg/dL (2.5-4.5) 07/24/23 04:00 Magnesium 2.0 mg/dL (1.7-2.3) 07/28/23 03:47 Total Bilirubin 0.6 mg/dL (0.15-1.2) 07/29/23 04:25 Direct Bilirubin 0.20 mg/dL (0.00-0.30) 07/29/23 04:25 AST 9 U/L (0-40) 07/29/23 04:25 ALT 9 U/L (0-41) 07/29/23 04:25 Alkaline Phosphatase 45 U/L (40-130) 07/29/23 04:25 Lactate Dehydrogenase 186 U/L (135-225) 07/29/23 04:25 C-Reactive Protein 5.0 mg/L (0.0-4.9) H 07/29/23 04:25 NT-Pro-B Natriuret Pep 271 pg/mL (0-125) H 07/23/23 11:23 Total Protein 5.9 g/dL (6.6-8.7) L 07/29/23 04:25 Albumin 3.8 g/dL (3.5-5.2) 07/29/23 04:25 Globulin 2.1 g/dL (1.3-4.6) 07/29/23 04:25 Procalcitonin 0.05 ng/mL (0-0.5) 07/23/23 11:23 Prolactin 25.70 ng/mL (4.0-15.2) H 07/29/23 04:25 Bronch Specimen Source Right upper lobe ba 07/29/23 09:06 Bronchial Fluid Color Red 07/29/23 09:06 Bronchial Fluid Appearance Bloody (CLEAR) 07/29/23 09:06 Bronchial Fluid WBC TNP 07/29/23 09:06 Bronchial Fluid RBC TNP 07/29/23 09:06 Bronch Cells Counted 200 07/29/23 09:06 Bronchial Neutrophils 70.00 % (0.9-2.3) H 07/29/23 09:06 Bronchial Lymphocytes 6.00 % (10.71-12.91) L 07/29/23 09:06 Bronchial Eosinophils 3.00 % (0.13-0.25) H 07/29/23 09:06 Bronchial Macrophages 21.00 % (83.6-86.8) L 07/29/23 09:06 Vancomycin Trough 19.1 ug/mL (10-15) H 07/27/23 06:56 Urine Opiates Screen Positive ng/mL (Negative) H 07/24/23 11:26 Ur Barbiturates Screen Negative ng/mL (Negative) 07/24/23 11:26 Ur Phencyclidine Scrn Negative ng/mL (Negative) 07/24/23 11:26 Ur Amphetamines Screen Negative ng/mL (Negative) 07/24/23 11:26 U Benzodiazepines Scrn Positive ng/mL (Negative) H 07/24/23 11:26 Urine Cocaine Screen Negative ng/mL (Negative) 07/24/23 11:26 U Marijuana (THC) Screen Negative ng/mL (Negative) 07/24/23 11:26 Coronavirus 229E (PCR) Not detected (NOT DETECT) 07/25/23 12:57 Hepatitis A IgM Ab Non-reactive (Nonreactive) 07/24/23 09:08 Hep Bs Antigen Non-reactive (Nonreactive) 07/24/23 09:08 Hep Bs Antibody 71.0 (11.5-1000) 07/24/23 09:08 Hep B Core Total Ab Reactive (Nonreactive) H 07/24/23 09:08 Hepatitis C Antibody Reactive (Nonreactive) H 07/24/23 09:08 HCV RNA (PCR) IUs/ml <1.18 not detected Log IU/mL (NOT DETECTED) 07/24/23 11:09 HCV RNA (PCR) IU log10 <15 not detected IU/mL (NOT DETECTED) 07/24/23 11:09 Influenza Type A Ag negative (Negative) 07/23/23 11:24 Influenza Type B Ag negative (Negative) 07/23/23 11:24 SARS-CoV-2 (PCR) Not detected (NOT DETECT) 07/25/23 12:57 SARS-CoV-2 Ag (Rapid) Negative (Negative) 07/23/23 11:24 TB (QFT) Gold In Tube Negative (NEGATIVE) 07/24/23 09:08 TB Test (QFT) Nil 0.01 IU/mL 07/24/23 09:08 TB Test (QFT) Mitogen 6.87 IU/mL 07/24/23 09:08 TB Test Mitogen - Nil 0.00 IU/mL 07/24/23 09:08 TB Test TB -Nil 0.00 IU/mL 07/24/23 09:08 Blood Type A Positive 07/23/23 16:27 Rho(D) Type Positive 07/23/23 16:27 Antibody Screen Negative 07/23/23 16:27 Crossmatch See Detail 07/23/23 16:27 Vitals Last Vital Signs Temp 96.7 F L 07/31/23 04:43 Pulse 75 07/31/23 09:29 Resp 16 07/31/23 09:29 BP 91/55 07/31/23 07:36 Pulse Ox 91 07/31/23 09:29 O2 Del Method Room Air 07/31/23 09:29 O2 Flow Rate 2 07/30/23 20:00 Discharge Plan Discharge Patient Disposition: Home Condition: Stable Prescriptions: New magnesium oxide 400 mg (241.3 mg magnesium) Tablet 400 mg PO BID Qty: 6 0RF thiamine mononitrate (vit B1) [Vitamin B-1 (mononitrate)] 100 mg Tablet 100 mg PO DAILY Qty: 90 2RF amoxicillin-pot clavulanate 875-125 mg tablet 1 tab PO BID Qty: 10 0RF Spiriva Respimat 1.25 mcg/actuation mist 2 inh inhalation DAILY Qty: 4 3RF metoprolol tartrate 25 mg Tablet 12.5 mg PO BID@0900,2100 Qty: 60 2RF folic acid 1 mg Tablet 1 mg PO DAILY Qty: 90 0RF doxycycline monohydrate 100 mg Tablet 100 mg PO BID Qty: 6 0RF Continued escitalopram oxalate 20 mg tablet 20 mg PO BEDTIME naloxone 4 mg/actuation [place],Non-Aerosol 4 mg INTRANASAL Q2M PRN (Reason: Opioid Overdose) Rx Instructions: spray 1 dose into ONE nostril; alternate nostrils w each dose until help arrives atorvastatin 40 mg tablet 40 mg PO QPM acetaminophen [Tylenol] 325 mg Tablet 325 mg PO Q4H PRN (Reason: Pain) Qty: 60 0RF albuterol sulfate [Ventolin HFA] 90 mcg/actuation Hfa Aerosol Inhaler 2 puff INHALATION Q4H PRN (Reason: Shortness Of Breath) Qty: 8.5 3RF fluticasone propion-salmeterol [Advair Diskus] 250-50 mcg/dose blister with device 2 inh INHALATION DAILY Qty: 60 4RF Discontinued warfarin 7.5 mg tablet 7.5 mg PO DAILY Discharge Orders: Discharge Order (Routine); Ordered 07/31/23 Ordered By: Mona Lorenzo Referrals: [facility] [Other] (Call this number to get In Home services setup.They will ask you questions & based off you answers you are given points. You have to have a certain number of points to qualify. ) Lexie Feliciano MD [Primary Care Provider] - Patient Instructions: Spontaneous Pneumothorax (DC), Pneumonia (GEN), Opioid Safety, Pneumonia Stoplight Discharge Attestations Time Spent in Discharge Care*: greater than 30 min Quality Metrics Clinical Quality Measures [ No reported AMI, CVA or VTE this stay] Coding Level of Care Code Acute Code for Chg Fwd Diagnoses Hemoptysis R04.2 Leukocytosis D72.829 Hepatic steatosis K76.0 Emphysematous COPD J43.9 Pulmonary fibrosis J84.10 Community acquired pneumonia J18.9 Pneumothorax on right J93.9 Atrial flutter I48.92
[2023-07-31 16:58] LABS: Aspergillus AG,EIA,Serum NOT DETECTED; Aspergillus Galactomannan Inde <0.50
[2023-08-01 13:55] LABS: Methicillin-Resist S.aureu PCR NOT DETECTED (NOT DETECTED)
[2023-08-02 21:14] LABS: Legionella Specimen Source BRONCH
== END 2023-07-31 11:50 | disposition home or self-care (01) | DRG 199 ==
LOC: ER 12:32 → MEDSURG 15:20 → ICU 15:37 → MEDSURG 07-29 18:32
PROVIDERS: Family Medicine; Internal Medicine; Thoracic Surgery (Cardiothoracic Vascular Surgery); Admitting Provider Internal Medicine; Emergency Provider Internal Medicine; PCP Family Medicine; Visit Provider Internal Medicine
PROC: 0BJ08ZZ Inspection of Tracheobronchial Tree, Via Natural or Artificial Opening Endoscopic (ICD-10-PCS; CPT 31622; principal; 2023-07-29 10:55)
DX: J93.83 Other pneumothorax (principal); J18.9 Pneumonia, unspecified organism; I48.92 Unspecified atrial flutter; T85.628A Displacement of other specified internal prosthetic devices, implants and grafts, initial encounter; J43.9 Emphysema, unspecified; K76.0 Fatty (change of) liver, not elsewhere classified; J84.10 Pulmonary fibrosis, unspecified; F17.200 Nicotine dependence, unspecified, uncomplicated; Z86.718 Personal history of other venous thrombosis and embolism; I48.91 Unspecified atrial fibrillation; Z98.2 Presence of cerebrospinal fluid drainage device; Y81.8 Miscellaneous general- and plastic-surgery devices associated with adverse incidents, not elsewhere classified; R45.1 Restlessness and agitation; I95.89 Other hypotension; E87.6 Hypokalemia; M54.2 Cervicalgia; F04 Amnestic disorder due to known physiological condition; Z11.52 Encounter for screening for COVID-19
CPT/HCPCS: 32551; 36415; 36430; 36573; 36592; 51702; 71045; 71260; 72125; 80048; 80053; 80076; 80202; 80306; 80503; 82803; 83605; 83615; 83735; 83880; 84100; 84145; 84146; 85014; 85018; 85025; 85610; 86140; 86480; 86705; 86706; 86709; 86803; 86850; 86900; 86920; 86927; 87015; 87040; 87070; 87102; 87116; 87205; 87206; 87278; 87305; 87340; 87426; 87522; 87635; 87641; 87801; 87804; 88112; 88305; 89050; 93005; 94640; 94760; 96365; 96367; 96372; 96375; 96376; 99285; C1751; J0330; J0696; J1100; J1170; J1200; J1630; J1940; J2060; J2270; J2371; J2405; J2543; J2704; J2765; J2920; J2930; J3010; J3370; J3430; J3475; J3480; J7030; J7040; J7060; P9016; P9017; Q9967

== ENCOUNTER 2023-07-31 15:32 | Emergency (ER) | payer MEDICARE, MEDICAID, SELFPAY ==
[2023-07-31 15:36] VITALS: BP 106/62; PULSE 104; RESP 16; TEMP 36.7; O2SAT 92; BMI 21.2
--- NOTE | 2023-07-31 15:43 | ECG_ITS ---
[facility] Test Date: 2023-07-31 Pat Name: Wei Leone Department: Room: Gender: Male [employer] Bi Developer: : 1970 Requested By: Trever Francois Order Number: [id number] Mildred MD: Ginger Mauro M.D. Measurements Intervals [place] Rate: 120 P: 78 OK: 155 QRS: 223 QRSD: 142 T: 46 QT: 335 QTc: 475 Interpretive Statements SINUS TACHYCARDIA WITH OCCASIONAL VENTRICULAR PREMATURE COMPLEXES INDETERMINATE AXIS RIGHT BUNDLE BRANCH BLOCK [120+ ms QRS DURATION, UPRIGHT V1, 40+ ms S IN I/aVL/V4/V5/V6] Possible biatrial enlargement Compared to ECG 07/23/2023 11:38:58 Ventricular premature complex(es) now present Sinus rhythm no longer present Left anterior fascicular block no longer present Electronically Signed On 07-31-2023 21:34:08 CDT by Ginger Mauro M.D. [id number]
--- NOTE | 2023-07-31 16:01 | XRR_ITS ---
PROCEDURE INFORMATION: Exam: XR Chest Exam date and time: 07/31/2023 4:09 PM Age: 53 years old Clinical indication: Cough and dyspnea; Cough with hemorrhage; Prior surgery; Surgery date: 6+ months; Surgery type: Chest tubes; Patient HX: Coughing up blood, asthma, emphysema, copd. ; Additional info: Dyspnea/cough TECHNIQUE: Imaging protocol: Radiologic exam of the chest. Views: 1 view. COMPARISON: CR XR chest 1V portable [id number] 07/28/2023 4:46 AM FINDINGS: Lungs: Slight decrease in size and density of the previously seen right upper lobe infiltrate. Suspect emphysematous changes with hyperlucency in the left upper lung field. Right basilar opacity is unchanged. Pleural spaces: Unremarkable. No pleural effusion. No pneumothorax. Heart/Mediastinum: Unremarkable. No cardiomegaly. Bones/joints: Unremarkable. XR/XR chest 1V portable [id number] IMPRESSION: Slight decrease in size and density of the previously seen right upper lobe infiltrate. Otherwise unchanged chest x-ray.
--- NOTE | 2023-07-31 16:02 | ED_ITS ---
HPI - Chest Pain General: Chief Complaint: Chest Pain Stated Complaint: coughing up blood Time Seen by Provider: 07/31/23 16:00 Source: patient Mode of arrival: ambulatory History of Present Illness: 53-year-old male was admitted to the hospital with a pneumothorax and hemoptysis 8 days ago discharged home today. He returns after having coughed up some blood earlier today. He is not on any anticoagulants. No fever sweats or chills recent H&P and discharge summary reviewed. Discussed with Dr. Lorenzo - patient was stable at time of admission this AM. complaint: chest pain Onset (ago): minute(s) Timing of current episode: episodic Onset: during rest Pain location: left chest Severity: mild Quality: sharp Relieving factors: nothing Exacerbating factors: nothing Associated symptoms: Deny abdominal pain, diaphoresis, dyspnea, fever(s), leg edema, nausea, palpitations, sense of impending doom, syncope or vomiting Review of Systems Const: Denies: fever(s), chills or diaphoresis Card: Reports: chest pain; Denies: palpitations or syncope Resp: Denies: dyspnea GI: Denies: abdominal pain, nausea or vomiting : Denies: dysuria, urinary frequency or urinary urgency Musc: Denies: neck pain or back pain Skin/Breast: Denies: rash PFSH ED PFSH: Medical History Aortic aneurysm Atrial fibrillation Chest pressure Personal history of ECMO Psychiatric care Surgical History [employer] 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 Social History Smoking and tobacco/nicotine status: never used tobacco/nicotine Alcohol intake: never Substance/Drug Use: former Physical Exam Const: COMMON NORMALS: no acute distress GENERAL APPEARANCE: cooperative and comfortable ORIENTATION/CONSCIOUSNESS: Yes awake, Yes oriented to person, Yes oriented to place and Yes oriented to time HENMT: COMMON NORMALS: normocephalic, atraumatic and hearing grossly normal bilaterally HEAD & SCALP: normocephalic and atraumatic Resp: COMMON NORMALS: normal respiratory effort, No retractions, No use of accessory muscles and clear to auscultation bilaterally AUSCULTATION: clear to auscultation bilaterally, rhonchi and wheezes Cardio: COMMON NORMALS: regular rate, regular rhythm and No murmurs present (Cardio) RATE: regular rate RHYTHM: regular rhythm GI: COMMON NORMALS: Soft to palpation and No hepatosplenomegaly present AUSCULTATION: Yes normoactive bowel sounds PALPATION: Yes Soft to palpation, No Tenderness to palpation present (GI), No Guarding due to palpation present (GI) and Yes No hepatosplenomegaly present Extremity: COMMON NORMALS: normal to inspection, capillary refill normal, no clubbing, cyanosis or edema, no calf tenderness and no pedal edema Neuro: SENSORIUM/ORIENTATION: Yes oriented to person, Yes oriented to place and Yes oriented to time Skin: COMMON NORMALS: no rashes or lesions noted GENERAL SKIN EXAM: no rashes or lesions noted Course Vital Signs: Vital signs: Vital Signs Temperature 98.0 F 07/31/23 15:36 Pulse Rate 104 H 07/31/23 15:36 Respiratory Rate 16 07/31/23 15:36 Blood Pressure 106/62 07/31/23 15:36 Pulse Oximetry 92 07/31/23 15:36 Oxygen Delivery Me thod Room Air 07/31/23 15:36 MDM - Chest Pain Medical Decision Making Patient was dismissed just a few hours prior to single episode of hemoptysis. He had an extensive hospital stay I discussed with his attending from his hospital stay. He is asymptomatic now he is not having any further chest pain Labs and imaging reviewed. Chest x-ray actually does look improved he is on oral antibiotics for resolving pneumonia. His hemoglobin is has not had any further episodes of hemoptysis while he was here. We will discharge patient home contact Dr. Mays for follow-up tomorrow. Medical Records I reviewed the patient's medical records. Lab Data I reviewed the patient's lab results. 07/31/23 16:20 07/31/23 16:20 Radiology Impressions Chest X-Ray 07/31/23 16:01 IMPRESSION: Slight decrease in size and density of the previously seen right upper lobe infiltrate. Otherwise unchanged chest x-ray. Laboratory Results WBC 18.23 10^3/uL (3.29-11.43) H 07/31/23 16:20 RBC 3.36 10^6/uL (3.85-5.65) L 07/31/23 16:20 Hgb 10.60 g/dL (11.27-16.99) L 07/31/23 16:20 Hct 33.0 % (37-53) L 07/31/23 16:20 MCV 98.2 fl (82-101) 07/31/23 16:20 MCH 31.5 pg (27-33) 07/31/23 16:20 MCHC 32.1 g/dL (30-55) 07/31/23 16:20 RDW 15.5 % (12.1-15.1) H 07/31/23 16:20 Plt Count 358 10^3/cmm (157-399) 07/31/23 16:20 MPV 9.8 fL (7.4-10.4) 07/31/23 16:20 Neut % (Auto) 74.9 % 07/31/23 16:20 Lymph % (Auto) 11.8 % 07/31/23 16:20 [place] % (Auto) 9.3 % 07/31/23 16:20 Eos % (Auto) 2.7 % 07/31/23 16:20 Baso % (Auto) 0.3 % 07/31/23 16:20 Neut # (Auto) 13.65 10^3/uL (1.8-7.7) H 07/31/23 16:20 Lymph # (Auto) 2.2 10^3/uL (0.8-4.8) 07/31/23 16:20 [place] # (Auto) 1.7 10^3/uL (0.2-0.9) H 07/31/23 16:20 Eos # (Auto) 0.5 10^3/uL (0.0-0.8) 07/31/23 16:20 Baso # (Auto) 0.1 10^3/uL (0.0-0.1) 07/31/23 16:20 Nucleated RBC % (auto) 0 % 07/31/23 16:20 Nucleated RBCs # 0.0 /100WBC 07/31/23 16:20 PT 12.30 SECONDS (12.1-14.9) 07/31/23 16:20 INR 0.89 (0.8-1.2) 07/31/23 16:20 APTT 25.3 SECONDS (23.9-36.7) 07/31/23 16:20 Sodium 137 mmol/L (136-145) 07/31/23 16:20 Potassium 4.3 mmol/L (3.5-5.1) 07/31/23 16:20 Chloride 101 mmol/L (98-107) 07/31/23 16:20 Carbon Dioxide 26 mmol/L (22-29) 07/31/23 16:20 Anion Gap 14.3 (5-19) 07/31/23 16:20 BUN 25 mg/dL (6-20) H 07/31/23 16:20 Creatinine 0.9 mg/dL (0.7-1.2) 07/31/23 16:20 GFR Calculation 87.9 mL/min (90-130) L 07/31/23 16:20 Glucose 103 mg/dL (65-115) 07/31/23 16:20 Calculated Osmolality 289 mOsm/kg (285-295) 07/31/23 16:20 Calcium 9.3 mg/dL (8.5-10.5) 07/31/23 16:20 Total Bilirubin 0.7 mg/dL (0.15-1.2) 07/31/23 16:20 AST 13 U/L (0-40) 07/31/23 16:20 ALT 11 U/L (0-41) 07/31/23 16:20 Alkaline Phosphatase 57 U/L (40-130) 07/31/23 16:20 Total Protein 6.8 g/dL (6.6-8.7) 07/31/23 16:20 Albumin 4.2 g/dL (3.5-5.2) 07/31/23 16:20 Globulin 2.6 g/dL (1.3-4.6) 07/31/23 16:20 All radiology interpretation(s) finalized by discharge Discharge Plan Discharge Patient Disposition: Home Clinical Impression: Hemoptysis, COPD (chronic obstructive pulmonary disease) Condition: Stable Prescriptions: No Action escitalopram oxalate 20 mg tablet 20 mg PO BEDTIME naloxone 4 mg/actuation [place],Non-Aerosol 4 mg INTRANASAL Q2M PRN (Reason: Opioid Overdose) Rx Instructions: spray 1 dose into ONE nostril; alternate nostrils w each dose until help arrives atorvastatin 40 mg tablet 40 mg PO QPM magnesium oxide 400 mg (241.3 mg magnesium) Tablet 400 mg PO BID Qty: 6 0RF metoprolol tartrate 25 mg Tablet 12.5 mg PO BID@0900,2100 Qty: 60 2RF thiamine mononitrate (vit B1) [Vitamin B-1 (mononitrate)] 100 mg Tablet 100 mg PO DAILY Qty: 90 2RF doxycycline monohydrate 100 mg Tablet 100 mg PO BID Qty: 6 0RF amoxicillin-pot clavulanate 875-125 mg tablet 1 tab PO BID Qty: 10 0RF acetaminophen [Tylenol] 325 mg Tablet 325 mg PO Q4H PRN (Reason: Pain) Qty: 60 0RF albuterol sulfate [Ventolin HFA] 90 mcg/actuation Hfa Aerosol Inhaler 2 puff INHALATION Q4H PRN (Reason: Shortness Of Breath) Qty: 8.5 3RF Spiriva Respimat 1.25 mcg/actuation mist 2 inh inhalation DAILY Qty: 4 3RF Advair Diskus 250-50 mcg/dose blister with device 1 inh INHALATION BID folic acid 1 mg tablet 1 mg PO QAM Discharge Orders: Discharge ED (Routine); Ordered 07/31/23 Ordered By: Trever Branch Referrals: Lexie Feliciano MD [Primary Care Provider] - Discharge Diet: Usual diet Discharge Activity: Limit activity as instructed Patient Instructions: Opioid Safety, Pain Management Activity Restrictions/Additional Instructions: Avoid strenuous activities. Continue all medications as you were discharged with earlier today. Dr. Mays's office will contact you tomorrow regarding follow-up. Coding Level of Care Code ED Bell Clerk for Precious Cooper
[2023-07-31 16:31] LABS: Basophils # 0.1 10^3/uL (0.0-0.1); Basophils % 0.3 %; Eosinophils # 0.5 10^3/uL (0.0-0.8); Eosinophils % 2.7 %; Lymphocytes # 2.2 10^3/uL (0.8-4.8); Lymphocytes % 11.8 %; Mean Corpuscular HGB Conc 32.1 g/dL (30-55); Mean Corpuscular Hemoglobin 31.5 pg (27-33); Mean Corpuscular Volume 98.2 fl (82-101); Mean Platelet Volume 9.8 fL (7.4-10.4); Monocytes # 1.7 10^3/uL (0.2-0.9); Monocytes % 9.3 %; Neutrophils # 13.65 10^3/uL (1.8-7.7); Neutrophils % 74.9 %; Nucleated Red Blood Cells % 0 %; Platelet Count 358 10^3/cmm (157-399); Red Blood Count 3.36 10^6/uL (3.85-5.65); Red Cell Distribution Width 15.5 % (12.1-15.1); White Blood Count 18.23 10^3/uL (3.29-11.43)
[2023-07-31 16:49] LABS: INR 0.89 (0.8-1.2)
[2023-07-31 16:50] LABS: Partial Thromboplastin Time 25.3 SECONDS (23.9-36.7)
[2023-07-31 16:56] LABS: Alanine Aminotransferase 11 U/L (0-41); Albumin Level 4.2 g/dL (3.5-5.2); Alkaline Phosphatase 57 U/L (40-130); Anion Gap 14.3 (5-19); Aspartate Amino Transferase 13 U/L (0-40); Blood Urea Nitrogen 25 mg/dL (6-20); Calcium 9.3 mg/dL (8.5-10.5); Carbon Dioxide 26 mmol/L (22-29); Chloride 101 mmol/L (98-107); Globulin 2.6 g/dL (1.3-4.6); Glomerular Filtration Rate 87.9 mL/min (90-130); Glucose 103 mg/dL (65-115); Osmolality Calculated 289 mOsm/kg (285-295); Potassium 4.3 mmol/L (3.5-5.1); Sodium 137 mmol/L (136-145); Total Bilirubin 0.7 mg/dL (0.15-1.2); Total Protein 6.8 g/dL (6.6-8.7)
--- NOTE | 2023-08-01 08:20 | PC.SOCIAL ---
Pulmonology Referral Referral to clinic at this time. Clinic to contact patient with appt date/time.
== END 2023-07-31 19:04 | disposition home or self-care (01) ==
PROVIDERS: Emergency Provider Family Medicine; PCP Family Medicine
DX: J44.9 Chronic obstructive pulmonary disease, unspecified (principal); R04.2 Hemoptysis
CPT/HCPCS: 36415; 71045; 80053; 85025; 85610; 85730; 93005; 99285

== ENCOUNTER 2023-08-01 14:40 | Emergency (ER) | payer MEDICARE, MEDICAID, SELFPAY ==
[2023-08-01 14:41] VITALS: BP 127/84; PULSE 78; RESP 16; TEMP 36.8; O2SAT 96; BMI 22.4
--- NOTE | 2023-08-01 16:26 | ED_ITS ---
HPI - SOB/Dyspnea General: Chief Complaint: Shortness of Breath/Dyspnea Stated Complaint: SOB Time Seen by Provider: 08/01/23 14:56 History of Present Illness: HPI Narrative: 53-year-old male presents emergency room after he was discharged within the past 48 hours for possible usp placement. Patient reveals that he feels like he cannot take care of himself at home and would like to be placed in a usp. Patient was admitted for 3 days due to COPD and pneumothorax. Patient denies any shortness of breath at this time but reveals chronic cough from his COPD. No known sick contact or recent foreign travel. Associated symptoms: Reports hemoptysis; Deny chest congestion, chest pain, dizziness, lightheadedness, orthopnea, palpitations or syncope Review of Systems General: Reports: 10 or more systems reviewed and unremarkable except in HPI and below Card: Denies: chest pain, palpitations, irregular heart rhythm, edema, swelling of feet/ankles, lightheadedness, syncope, pre-syncope, dyspnea on exertion or orthopnea Resp: Reports: dyspnea, productive cough and hemoptysis; Denies: wheezing, stridor, pain on inspiration, change in phlegm color or chest congestion : Denies: flank pain, difficulty urinating or dysuria Neuro: Denies: headache(s), numbness in extremities, weakness in extremities, sensory changes, lack of coordination, difficulty walking, frequent falls, dizziness, vertigo, confusion or behavioral changes Psych: Denies: anxiety, depression, mood swings, panic attacks, auditory hallucinations, tactile hallucinations, suicidal ideation or homicidal ideation FORMERLY [facility], [facility] ED PFSH: Medical History Aortic aneurysm Atrial fibrillation Chest pressure Personal history of ECMO Psychiatric care 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 History 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 Social History Smoking and tobacco/nicotine status: never used tobacco/nicotine Alcohol intake: never Substance/Drug Use: former Physical Exam Const: COMMON NORMALS: no acute distress, average body habitus, patient oriented x3, no limitations, healthy appearing, alert and well nourished Neck/C-Spine: COMMON NORMALS: full ROM, no lymphadenopathy, supple, no meningeal signs, no JVD, Thyroid normal and No carotid bruits THYROID: Thyroid normal Chest: COMMONS NORMALS: normal inspection of the chest, normal palpation of entire chest wall, normal inspection of the breasts and normal palpation of the breasts Breast/axilla inspection: Yes normal inspection of the breasts BREAST/AXILLA PALPATION: Yes normal palpation of the breasts Resp: COMMON NORMALS: normal respiratory effort, No retractions, No use of accessory muscles and percussion normal EFFORT & INSPECTION: Yes able to speak in complete sentences AUSCULTATION: wheezes, diminished lung sounds, no tactile fremitus and no vesicular sounds PERCUSSION: percussion normal Cardio: COMMON NORMALS: no JVD, regular rate, regular rhythm, S1 normal heart sound present, S2 normal heart sound present, No gallops present (Cardio), No clicks present (Cardio), No murmurs present (Cardio), No rub (Cardio) and Peripheral pulses 2+ throughout RATE: regular rate RHYTHM: regular rhythm HEART SOUNDS: S1 normal heart sound present and S2 normal heart sound present PERIPHERAL PULSES: Peripheral pulses 2+ throughout Neuro: COMMON NORMALS: patient oriented x3 SENSORIUM/ORIENTATION: Yes alert MENINGEAL SIGNS: Yes no meningeal signs Course Vital Signs: Vital signs: Vital Signs Temperature 98.2 F 08/01/23 14:41 Pulse Rate 78 08/01/23 14:41 Respiratory Rate 16 08/01/23 14:41 Blood Pressure 127/84 08/01/23 14:41 Pulse Oximetry 96 08/01/23 14:41 MDM - SOB/Dyspnea Medical Decision Making Patient was made comfortable emergency room. I was able to review his current and past medical records including recent ER visit which was within the past 12 hours. Discussed patient with discharging physician. I was told that patient did not medical treatment for usp placement at this time. No radiology studies performed this visit Discharge Plan Discharge Patient Disposition: Home Clinical Impression: COPD (chronic obstructive pulmonary disease) Condition: Stable Prescriptions: No Action escitalopram oxalate 20 mg tablet 20 mg PO BEDTIME naloxone 4 mg/actuation [place],Non-Aerosol 4 mg INTRANASAL Q2M PRN (Reason: Opioid Overdose) Rx Instructions: spray 1 dose into ONE nostril; alternate nostrils w each dose until help arrives atorvastatin 40 mg tablet 40 mg PO QPM magnesium oxide 400 mg (241.3 mg magnesium) Tablet 400 mg PO BID Qty: 6 0RF metoprolol tartrate 25 mg Tablet 12.5 mg PO BID@0900,2100 Qty: 60 2RF thiamine mononitrate (vit B1) [Vitamin B-1 (mononitrate)] 100 mg Tablet 100 mg PO DAILY Qty: 90 2RF doxycycline monohydrate 100 mg Tablet 100 mg PO BID Qty: 6 0RF amoxicillin-pot clavulanate 875-125 mg tablet 1 tab PO BID Qty: 10 0RF acetaminophen [Tylenol] 325 mg Tablet 325 mg PO Q4H PRN (Reason: Pain) Qty: 60 0RF albuterol sulfate [Ventolin HFA] 90 mcg/actuation Hfa Aerosol Inhaler 2 puff INHALATION Q4H PRN (Reason: Shortness Of Breath) Qty: 8.5 3RF Spiriva Respimat 1.25 mcg/actuation mist 2 inh inhalation DAILY Qty: 4 3RF fluticasone propion-salmeterol [Advair Diskus] 250-50 mcg/dose blister with device 1 inh INHALATION BID folic acid 1 mg tablet 1 mg PO QAM Discharge Orders: Discharge ED (Routine); Ordered 08/01/23 Ordered By: Enio Moreno Referrals: Lexie Feliciano MD [Primary Care Provider] - Discharge Diet: Advance as tolerated Discharge Activity: Resume usual activity Patient Instructions: Opioid Safety, Pain Management Coding Level of Care Code ED Staff Consultant for Precious Cooper
[2023-08-01 16:46] VITALS: BP 127/84; PULSE 78; RESP 16; TEMP 36.8; O2SAT 96
== END 2023-08-01 16:46 | disposition home or self-care (01) ==
PROVIDERS: Emergency Provider Family Medicine; PCP Family Medicine
DX: J44.9 Chronic obstructive pulmonary disease, unspecified (principal)
CPT/HCPCS: 99282

== ENCOUNTER → 2023-08-13 14:49 | Outpatient (BNVA) | payer MEDICARE, MEDICAID, SELFPAY | PROVIDERS: PCP Family Medicine; Visit Provider Family Medicine | DX: J93.9 Pneumothorax, unspecified; R06.02 Shortness of breath; I48.91 Unspecified atrial fibrillation | CPT/HCPCS: 71046; 80053; 85025 ==

== ENCOUNTER → 2023-08-29 07:35 | Outpatient (BNVA) | payer MEDICARE, MEDICAID, SELFPAY | PROVIDERS: PCP Family Medicine; Referring Provider Family Medicine; Visit Provider Surgery | DX: K40.90 Unilateral inguinal hernia, without obstruction or gangrene, not specified as recurrent (principal) | CPT/HCPCS: 99204 ==

== ENCOUNTER 2023-09-09 11:26 | Outpatient (CLI) | payer MEDICARE, MEDICAID, SELFPAY ==
[2023-09-09] MEDS: iohexol 350 mg/mL 500 mL Btl (per mL) PO (11:57)
--- NOTE | 2023-09-09 12:30 | CTR_ITS ---
PROCEDURE INFORMATION: Exam: CT Abdomen And Pelvis With Contrast Exam date and time: 09/09/2023 12:50 PM Age: 53 years old Clinical indication: Condition or disease; Complications not specified; Other: Lower left groin area hernia x 2 years; Prior surgery; Surgery date: 6+ months; Surgery type: Hernia x 3, appy, shunt; Additional info: Abdominal wall hernia, oral and iv contrast TECHNIQUE: Imaging protocol: Computed tomography of the abdomen and pelvis with contrast. Radiation optimization: All CT scans at this facility use at least one of these dose optimization techniques: automated exposure control; mA and/or kV adjustment per patient size (includes targeted exams where dose is matched to clinical indication); or iterative reconstruction. Contrast material: OMNI 350; Contrast volume: 95 ml; Contrast route: INTRAVENOUS (IV); REPORTING DATA: Count of CT and Cardiac NM exams in prior 12 months: This patient has received 3 known CTs and 0 known cardiac nuclear medicine studies in the 12 months prior to the current study. COMPARISON: CT angio chest abdomen 01/04/2022 2:56 PM RADIATION DOSE METRICS: Total DLP (mGy-cm): 287.97 FINDINGS: Tubes, catheters and devices: PATTERN SETTER shunt noted, entering the abdomen to the right of the midline and terminating in the anterior pelvis. Liver: Normal. No mass. Gallbladder and bile ducts: Normal. No calcified stones. No ductal dilation. Pancreas: Normal. No ductal dilation. Spleen: Normal. No splenomegaly. Adrenal glands: Normal. No mass. Kidneys and ureters: Normal. No hydronephrosis. Stomach and bowel: Unremarkable. No obstruction. No mucosal thickening. Appendix: No evidence of appendicitis. Intraperitoneal space: Unremarkable. No free air. No significant fluid collection. Vasculature: Unremarkable. No abdominal aortic aneurysm. Lymph nodes: Unremarkable. No enlarged lymph nodes. Urinary bladder: Unremarkable as visualized. Reproductive: Unremarkable as visualized. Bones/joints: Unremarkable. No acute fracture. Soft tissues: Unremarkable. CT/CT abdomen pelvis w con* [id number] IMPRESSION: No acute subdiaphragmatic pathology.
[2023-09-09] MEDS: iohexol 350 mg/mL 500 mL Btl (per mL) IV (12:53)
== END 2023-09-09 11:27 | disposition home or self-care (01) ==
LOC: RAD 11:27
PROVIDERS: PCP Family Medicine; Visit Provider Surgery
DX: K43.9 Ventral hernia without obstruction or gangrene (principal); K40.90 Unilateral inguinal hernia, without obstruction or gangrene, not specified as recurrent; Z98.890 Other specified postprocedural states
CPT/HCPCS: 74177; Q9967

== ENCOUNTER → 2023-09-30 14:15 | Outpatient (BNVA) | payer MEDICARE, MEDICAID, SELFPAY | PROVIDERS: PCP Family Medicine; Referring Provider Family Medicine; Visit Provider Student in an Organized Health Care Education/Training Program | DX: M72.0 Palmar fascial fibromatosis [Dupuytren] (principal) | CPT/HCPCS: 73130; 99204 ==

== ENCOUNTER 2023-10-10 11:32 | Inpatient (IN) | payer MEDICARE, MEDICAID, SELFPAY ==
[2023-10-10] VITALS (7 sets, daily range): BP systolic 123–145; BP diastolic 82–97; PULSE 66–101; RESP 17–18; TEMP 36.6–36.7; O2SAT 91–99
--- NOTE | 2023-10-10 11:49 | W.ED.ABDPA2 ---
HPI - Abdominal Pain General: Chief Complaint: ER Hold Stated Complaint: abd pain Time Seen by Provider: 10/10/23 11:34 Source: patient Mode of arrival: EMS History of Present Illness: 53-year-old male presents emergency room with complaints of abdominal pain with nausea vomiting progressively worsening over the last 2 days. Denies hematochezia melena hematemesis cough cramps no fever sweats chills. 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 MD elicited complaint: abdominal pain Onset (ago): day(s) (2) Pain Consistency: constant Location: Diffuse Quality: cramping Radiation: none Exacerbating factors: eating Relieving factors: nothing Associated Symptoms: Reports anorexia, bloating, GI cramping, dyspepsia, nausea, poor appetite and vomiting; Denies belching, change in bowel habits, change in stool character, chills, coffee ground emesis, constipation, diarrhea, dysuria, excessive flatus, fever(s), heartburn, hematochezia, hematuria, hematemesis, fecal incontinence, loose stools, melena, syncope and other Review of Systems Const: Denies: fever(s) or chills Card: Denies: chest pain or syncope Resp: Denies: dyspnea GI: Reports: abdominal pain, nausea, vomiting, bloating and GI cramping; Denies: hematemesis, coffee ground emesis, heartburn, diarrhea, constipation, belching, excessive flatus, fecal incontinence, change in bowel habits, change in stool character, hematochezia, melena or other : Denies: dysuria, urinary frequency, urinary urgency or hematuria Musc: Denies: neck pain or back pain Skin/Breast: Denies: rash PFSH ED PFSH: Medical History Hemoptysis Leukocytosis Hepatic steatosis Emphysematous COPD Pulmonary fibrosis Pneumothorax on right Community acquired pneumonia Psychiatric care Personal history of ECMO Aortic aneurysm Atrial fibrillation Chest pressure Atrial flutter Surgical History 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 (ventriculoperitoneal) shunt status Family History Mother Cancer adrenal glan Other Diabetes Heart disease Hypertension Lung disease Psychiatric illness Denies family history of Aneurysm TIA (transient ischemic attack) Hyperlipidemia Hyperthyroidism Hypothyroidism Stroke Social History Smoking and tobacco/nicotine status: current every day tobacco/nicotine user cigarettes Packs smoked per day: 0.5 Alcohol intake: former Substance/Drug Use: former Lives independently: Yes Current occupational status: retired and disabled Special darren needs: No Agree to transfusion: Yes Physical Exam Const: COMMON NORMALS: no acute distress GENERAL APPEARANCE: cooperative and comfortable ORIENTATION/CONSCIOUSNESS: Yes awake, Yes oriented to person, Yes oriented to place and Yes oriented to time HENMT: COMMON NORMALS: normocephalic, atraumatic and hearing grossly normal bilaterally HEAD & SCALP: normocephalic and atraumatic Resp: COMMON NORMALS: normal respiratory effort, No retractions, No use of accessory muscles and clear to auscultation bilaterally AUSCULTATION: clear to auscultation bilaterally Cardio: COMMON NORMALS: regular rate, regular rhythm and No murmurs present (Cardio) RATE: regular rate RHYTHM: regular rhythm GI: COMMON NORMALS: Soft to palpation and No hepatosplenomegaly present AUSCULTATION: Yes normoactive bowel sounds PALPATION: Yes Soft to palpation, No Tenderness to palpation present (GI), No Guarding due to palpation present (GI) and Yes No hepatosplenomegaly present Extremity: COMMON NORMALS: normal to inspection, capillary refill normal, no clubbing, cyanosis or edema, no calf tenderness and no pedal edema Neuro: SENSORIUM/ORIENTATION: Yes oriented to person, Yes oriented to place and Yes oriented to time Skin: COMMON NORMALS: no rashes or lesions noted GENERAL SKIN EXAM: no rashes or lesions noted Course Vital Signs: Vital signs: Vital Signs Temperature 98.1 F 10/10/23 11:40 Pulse Rate 86 10/10/23 14:12 Respiratory Rate 18 10/10/23 14:12 Blood Pressure 127/85 10/10/23 14:12 Pulse Oximetry 95 10/10/23 14:12 Oxygen Delivery Me thod Room Air 10/10/23 14:12 MDM - Abdominal Pain Medical Decision Making Small bowel obstruction. NG placed surgery consult admit to hospitalist Differential Diagnosis Likely abdominal pain, calculus of kidney, constipation, diverticulitis, gastroenteritis, pancreatitis and small bowel obstruction Medical Records I reviewed the patient's medical records. Lab Data I reviewed the patient's lab results. 10/10/23 11:41 10/10/23 11:41 Labs/Radiology: Radiology Impressions Chest X-Ray 10/10/23 12:47 IMPRESSION: NG tube in mid stomach. Abnormal small-bowel loops demonstrating gaseous distention in the upper abdomen. Severe pulmonary emphysema. Laboratory Results WBC 15.65 10^3/uL (3.29-11.43) H 10/10/23 11:41 RBC 5.22 10^6/uL (3.85-5.65) 10/10/23 11:41 Hgb 15.30 g/dL (11.27-16.99) 10/10/23 11:41 Hct 47.4 % (37-53) 10/10/23 11:41 MCV 90.8 fl (82-101) 10/10/23 11:41 MCH 29.3 pg (27-33) 10/10/23 11:41 MCHC 32.3 g/dL (30-55) 10/10/23 11:41 RDW 16.2 % (12.1-15.1) H 10/10/23 11:41 Plt Count 227 10^3/cmm (157-399) 10/10/23 11:41 MPV 10.3 fL (7.4-10.4) 10/10/23 11:41 Neut % (Auto) 79.4 % 10/10/23 11:41 Lymph % (Auto) 12.1 % 10/10/23 11:41 [place] % (Auto) 7.1 % 10/10/23 11:41 Eos % (Auto) 0.7 % 10/10/23 11:41 Baso % (Auto) 0.3 % 10/10/23 11:41 Neut # (Auto) 12.43 10^3/uL (1.8-7.7) H 10/10/23 11:41 Lymph # (Auto) 1.9 10^3/uL (0.8-4.8) 10/10/23 11:41 [place] # (Auto) 1.1 10^3/uL (0.2-0.9) H 10/10/23 11:41 Eos # (Auto) 0.1 10^3/uL (0.0-0.8) 10/10/23 11:41 Baso # (Auto) 0.1 10^3/uL (0.0-0.1) 10/10/23 11:41 Nucleated RBC % (auto) 0 % 10/10/23 11:41 Nucleated RBCs # 0.0 /100WBC 10/10/23 11:41 Sodium 143 mmol/L (136-145) 10/10/23 11:41 Potassium 4.6 mmol/L (3.5-5.1) 10/10/23 11:41 Chloride 102 mmol/L (98-107) 10/10/23 11:41 Carbon Dioxide 28 mmol/L (22-29) 10/10/23 11:41 Anion Gap 17.6 (5-19) 10/10/23 11:41 BUN 22 mg/dL (6-20) H 10/10/23 11:41 Creatinine 1.2 mg/dL (0.7-1.2) 10/10/23 11:41 GFR Calculation 63.1 mL/min (90-130) L 10/10/23 11:41 Glucose 126 mg/dL (65-115) H 10/10/23 11:41 Calculated Osmolality 301 mOsm/kg (285-295) H 10/10/23 11:41 Calcium 11.1 mg/dL (8.5-10.5) H 10/10/23 11:41 Total Bilirubin 0.3 mg/dL (0.15-1.2) 10/10/23 11:41 AST 23 U/L (0-40) 10/10/23 11:41 ALT 17 U/L (0-41) 10/10/23 11:41 Alkaline Phosphatase 114 U/L (40-130) 10/10/23 11:41 Total Protein 8.4 g/dL (6.6-8.7) 10/10/23 11:41 Albumin 4.9 g/dL (3.5-5.2) 10/10/23 11:41 Globulin 3.5 g/dL (1.3-4.6) 10/10/23 11:41 Lipase 25 U/L (13-60) 10/10/23 11:41 All radiology interpretation(s) finalized by discharge Discharge Plan Discharge Admit Provider: Prasanna Soriano Condition: Stable Coding Level of Care Code ED Dressmaker Garment Fitter for Precious Cooper
[2023-10-10 11:50] LABS: Basophils # 0.1 10^3/uL (0.0-0.1); Basophils % 0.3 %; Eosinophils # 0.1 10^3/uL (0.0-0.8); Eosinophils % 0.7 %; Hematocrit 47.4 % (37-53); Lymphocytes # 1.9 10^3/uL (0.8-4.8); Lymphocytes % 12.1 %; Mean Corpuscular HGB Conc 32.3 g/dL (30-55); Mean Corpuscular Hemoglobin 29.3 pg (27-33); Mean Corpuscular Volume 90.8 fl (82-101); Mean Platelet Volume 10.3 fL (7.4-10.4); Monocytes # 1.1 10^3/uL (0.2-0.9); Monocytes % 7.1 %; Neutrophils # 12.43 10^3/uL (1.8-7.7); Neutrophils % 79.4 %; Nucleated Red Blood Cells % 0 %; Platelet Count 227 10^3/cmm (157-399); Red Blood Count 5.22 10^6/uL (3.85-5.65); Red Cell Distribution Width 16.2 % (12.1-15.1); White Blood Count 15.65 10^3/uL (3.29-11.43)
--- NOTE | 2023-10-10 12:00 | CT_ITS ---
WS: [id number] CT ABDOMEN PELVIS TECHNIQUE: Contrast-enhanced CT of the abdomen and pelvis with coronal and sagittal reformatted image s. CLINICAL INFORMATION: abd pain COMPARISON: None. DLP: 425.[address] scans at [facility] use at least one of these dose optimization techniques: automated e xposure control; mA and/or kV adjustment per patient size (includes targeted exams where dose is matc hed to clinical indication); or iterative reconstruction. FINDINGS: Diffuse dilatation of fluid-filled small bowel with air-fluid levels. Small bowel measures up to 3.6 cm compatible with partial small bowel obstruction. Persistent air within the colon. Mild rectosigmoi d constipation. Shunt catheters with tips in the pelvis. Fluid distended stomach with air-fluid level. Small bowel appears dilated to the ileum. Area of narro wing and transition in the mid abdomen series 3 image 58 and coronal image 22 series 5 Advanced chronic emphysematous changes in the lung bases. Diffuse fatty infiltration of the liver. No rmal portal vein and splenic vein. Normal pancreatic parenchymal enhancement. Normal spleen. Normal c aliber abdominal aorta. Celiac and SMA are patent. Adrenal glands are normal. No hydronephrosis. Norm al caliber abdominal aorta. Mild aortic calcification. Sigmoid colon abuts the fat-containing LEFT inguinal hernia with slight herniation although no eviden ce of obstruction in this area. IMPRESSION: 1. Partial small bowel obstruction with transition point in the distal ileum noted above. 2. Persistent air and stool within the colon which is relatively decompressed. 3. Fluid distended stomach with air-fluid level. 4. Sigmoid colon abuts the fat-containing LEFT inguinal hernia with slight herniation although no ev idence of obstruction in this area. 5. No other acute findings.
[2023-10-10 12:11] LABS: Alanine Aminotransferase 17 U/L (0-41); Albumin Level 4.9 g/dL (3.5-5.2); Alkaline Phosphatase 114 U/L (40-130); Anion Gap 17.6 (5-19); Aspartate Amino Transferase 23 U/L (0-40); Blood Urea Nitrogen 22 mg/dL (6-20); Calcium 11.1 mg/dL (8.5-10.5); Carbon Dioxide 28 mmol/L (22-29); Chloride 102 mmol/L (98-107); Globulin 3.5 g/dL (1.3-4.6); Glomerular Filtration Rate 63.1 mL/min (90-130); Glucose 126 mg/dL (65-115); Lipase 25 U/L (13-60); Osmolality Calculated 301 mOsm/kg (285-295); Potassium 4.6 mmol/L (3.5-5.1); Sodium 143 mmol/L (136-145); Total Bilirubin 0.3 mg/dL (0.15-1.2); Total Protein 8.4 g/dL (6.6-8.7)
[2023-10-10] MEDS: iohexol 350 mg/mL 500 mL Btl (per mL) IV (12:13)
[2023-10-10] MEDS: sodium chloride 0.9% 1,000 ML 999 ML IV ×3 (12:44→13:50)
[2023-10-10] MEDS: ondansetron 2 mg/ML SDV 2 mL 4 MG IVP (12:44)
[2023-10-10] MEDS: morphine 4 mg/mL SDV 1 mL IVP ×2 (12:44→22:52)
--- NOTE | 2023-10-10 12:47 | XRR_ITS ---
PROCEDURE INFORMATION: Exam: XR Chest Exam date and time: 10/10/2023 12:53 PM Age: 53 years old Clinical indication: Device placement; Ng tube; Additional info: Ng placement TECHNIQUE: Imaging protocol: Radiologic exam of the chest. Views: 1 view. COMPARISON: CR XR chest 2V* [id number] 08/13/2023 3:08 PM FINDINGS: Tubes, catheters and devices: Nasogastric tube extends into the mid stomach. Lungs: Severe pulmonary emphysema is present. Areas of pulmonary scarring noted. Pleural spaces: No pleural effusion or pneumothorax. Heart/Mediastinum: Unremarkable. Bones/joints: No significant pathology. Gastrointestinal tract: Dilated air-filled small bowel loops are present in the visualized upper abdomen. XR/XR chest 1V portable [id number] IMPRESSION: NG tube in mid stomach. Abnormal small-bowel loops demonstrating gaseous distention in the upper abdomen. Severe pulmonary emphysema.
--- NOTE | 2023-10-10 12:53 | PM.CONSULT ---
Providers/Reason For Consult Consulting Physician/Specialty*: Hospitalist Reason for Consult*: Small bowel obstruction Requesting Physician: Zachary Primary Care Provider: John Anderson MD History of Present Illness History of Present Illness Wei Leone is a 53 year old male with a complex past medical history presents with 3 to 4-hour history of abdominal pain. The pain started all of a sudden. Patient stated that he had a good bowel movement this morning. The patient had no nausea or vomiting. An NG tube was placed in the emergency room. A CT scan of the abdomen pelvis was obtained. The CT scan shows dilated small bowel. This is consistent with a partial small bowel obstruction. This patient has had no past medical history consistent with a abdominal surgery. The patient has had a ZIGZAG TOPSTITCHER shunt. Other than that he has not had abdominal surgery. The abdominal pain is described as crampy. It is constant. There is nothing he knows that makes it better or worse. The patient has a long history of smoking. The patient has COPD. The patient's not on home oxygen. Review of Systems General: Reports: 10 or more systems reviewed and unremarkable except in HPI and below Medications/Allergies Home Medications Medication Instructions Recorded Confirmed Last Taken Type atorvastatin 40 mg tablet 40 mg PO QPM 07/23/23 10/10/23 10/09/23 History albuterol sulfate 90 mcg/actuation 2 puff inhalation Q4H PRN 07/31/23 10/10/23 Unknown Rx aerosol inhaler (Ventolin HFA) Shortness Of Breath #8.5 grams folic acid 1 mg tablet 1 mg PO QAM 07/31/23 10/10/23 10/10/23 History metoprolol tartrate 25 mg tablet 12.5 mg (1/2 x 25 mg) PO 07/31/23 10/10/23 10/10/23 Rx BID@0900,2100 #60 tabs thiamine mononitrate (vit B1) 100 100 mg PO DAILY #90 tabs 07/31/23 10/10/23 10/10/23 Rx mg tablet (Vitamin B-1 (mononitrate)) tiotropium bromide 1.25 2 inh inhalation DAILY #4 grams 07/31/23 10/10/23 10/09/23 Rx mcg/actuation mist for inhalation (Spiriva Respimat) bupropion HCl 300 mg 24 hr tablet, 300 mg PO QAM #90 tabs 08/13/23 10/10/23 10/10/23 Rx extended release (Wellbutrin XL) escitalopram oxalate 20 mg tablet 20 mg PO BEDTIME #90 tabs 08/13/23 10/10/23 10/09/23 Rx fluticasone 250 mcg-salmeterol 50 1 inh inhalation BID #60 ea 09/08/23 10/10/23 Unknown Rx mcg/dose blistr powdr for inhalation (Advair Diskus) apixaban 5 mg tablet (Eliquis) 5 mg PO BID #180 tabs 09/09/23 10/10/23 10/10/23 Rx midodrine 2.5 mg tablet See Rx Instructions .Route 10/02/23 10/10/23 10/10/23 Rx .COMPLEX #60 tabs Allergies Allergy/AdvReac Type Severity Reaction Status Date / Time codeine Allergy ADR-Headach Verified 09/30/23 14:21 e Current Medications Generic Name Dose Route Start Last Admin Trade Name Freq PRN Reason Stop Dose Admin Sodium Chloride 1,000 mls @ 999 mls/hr 10/10/23 12:00 10/10/23 12:44 Sodium Chloride 0.9% IV 10/10/23 13:00 999 mls/hr .Q1H1M ONE Administration PFSH Acute PFSH: Medical History Hemoptysis Leukocytosis Hepatic steatosis Emphysematous COPD Pulmonary fibrosis Pneumothorax on right Community acquired pneumonia Psychiatric care Personal history of ECMO Aortic aneurysm Atrial fibrillation Chest pressure Atrial flutter Surgical History ZIGZAG TOPSTITCHER (ventriculoperitoneal) shunt status Family History Mother Cancer adrenal glan Other Diabetes Heart disease Hypertension Lung disease Psychiatric illness Denies family history of Aneurysm TIA (transient ischemic attack) Hyperlipidemia Hyperthyroidism Hypothyroidism Stroke Social History Smoking and tobacco/nicotine status: current every day tobacco/nicotine user cigarettes Packs smoked per day: 0.5 Alcohol intake: former Substance/Drug Use: former Lives independently: Yes Current occupational status: retired and disabled Special darren needs: No Agree to transfusion: Yes Vitals/I&O/Wt Last Vital Signs Temp 98.1 F 10/10/23 11:40 Pulse 101 H 10/10/23 12:46 Resp 18 10/10/23 12:46 BP 132/89 10/10/23 12:46 Pulse Ox 97 10/10/23 12:46 O2 Del Method Room Air 10/10/23 12:46 Physical Exam Narrative: Generally: Thin appearing middle-aged male HEENT: Is normocephalic atraumatic Lungs: Decreased breath sounds bilaterally. There is no wheezes, rhonchi or rales Heart: Regular rate and rhythm without murmurs. There is no S3 or S4. There is no rubs clicks or JVD noted. Abdomen: Soft, nondistended, diffusely tender without rebound. The patient has positive bowel sounds. He has got tinkles without rashes. He does have an easily palpable ZIGZAG TOPSTITCHER shunt. He also has a well-healed inguinal hernia scar bilaterally. Extremities: The patient has multiple tattoos. There is no clubbing cyanosis or edema. The patient has good cap refill in both his hands and feet. Neurologic: The patient is awake, alert, oriented x 3. The patient's Sonia Coma Scale is 15. Patient moves all 4 extremities without difficulty. Data 10/10/23 11:41 10/10/23 11:41 Attestation for Other Data: I personally reviewed and interpreted the following: (I personally reviewed all of the patient's labs and CT scans) A&P Assessment and plan (1) Partial small bowel obstruction: Will try to treat this patient conservatively. The patient does not have any masses on the CT scan suggestive of cancer. I do not see a mehrdad internal hernia. Will get a KUB in the morning. Will hydrate this patient. Would appreciate admission of this patient to the hospitalist. I will follow closely. I spoke with the patient at length. I explained to him that we will get a try and treat him conservatively. Patient stated that he wanted surgery so he can get that NG tube out. I told him that even if we did surgery he would still have the NG tube. Therefore he is willing to try conservative therapy for now. Would hold any of the patient's anticoagulants for now. Coding Level of Care Code 47570 Diagnoses Partial small bowel obstruction K56.600
--- NOTE | 2023-10-10 13:50 | P.HP_ITS ---
Providers/Chief Complaint 2 Primary Care Provider: John Anderson MD Chief Complaint: abd pain History of Present Illness Wei Leone is a 53 year old, who has not been feeling well for the last 2 having 3 days with nausea, vomiting, new abdominal pain. CT shows small bowel obstruction. He states he has been passing flatus, had a bowel movement. He is being seen by surgery and ER. NGT has been placed. Review of Systems 2 Const: Denies: fever(s), chills, body aches or malaise ENMT: Denies: throat pain Card: Denies: chest pain, edema, pre-syncope or dyspnea on exertion Resp: Denies: dyspnea, productive cough, change in phlegm color or hemoptysis GI: Reports: abdominal pain, nausea and vomiting; Denies: diarrhea, constipation, hematochezia or melena : Denies: flank pain, difficulty urinating, urinary frequency or hematuria Musc: Denies: back pain, joint swelling or joint redness Skin/Breast: Denies: rash or new lesions Neuro: Denies: headache(s), numbness in extremities, weakness in extremities, dizziness, confusion or seizure-like activity Medications/Allergies Home Medications Medication Instructions Recorded Confirmed Last Taken Type atorvastatin 40 mg tablet 40 mg PO QPM 07/23/23 10/10/23 10/09/23 History albuterol sulfate 90 mcg/actuation 2 puff inhalation Q4H PRN 07/31/23 10/10/23 Unknown Rx aerosol inhaler (Ventolin HFA) Shortness Of Breath #8.5 grams folic acid 1 mg tablet 1 mg PO QAM 07/31/23 10/10/23 10/10/23 History metoprolol tartrate 25 mg tablet 12.5 mg (1/2 x 25 mg) PO 07/31/23 10/10/23 10/10/23 Rx BID@0900,2100 #60 tabs thiamine mononitrate (vit B1) 100 100 mg PO DAILY #90 tabs 07/31/23 10/10/23 10/10/23 Rx mg tablet (Vitamin B-1 (mononitrate)) tiotropium bromide 1.25 2 inh inhalation DAILY #4 grams 07/31/23 10/10/23 10/09/23 Rx mcg/actuation mist for inhalation (Spiriva Respimat) bupropion HCl 300 mg 24 hr tablet, 300 mg PO QAM #90 tabs 08/13/23 10/10/23 10/10/23 Rx extended release (Wellbutrin XL) escitalopram oxalate 20 mg tablet 20 mg PO BEDTIME #90 tabs 08/13/23 10/10/23 10/09/23 Rx fluticasone 250 mcg-salmeterol 50 1 inh inhalation BID #60 ea 09/08/23 10/10/23 Unknown Rx mcg/dose blistr powdr for inhalation (Advair Diskus) apixaban 5 mg tablet (Eliquis) 5 mg PO BID #180 tabs 09/09/23 10/10/23 10/10/23 Rx midodrine 2.5 mg tablet See Rx Instructions .Route 10/02/23 10/10/23 10/10/23 Rx .COMPLEX #60 tabs Allergies Allergy/AdvReac Type Severity Reaction Status Date / Time codeine Allergy ADR-Headach Verified 09/30/23 14:21 e PFSH Acute 2 PFSH: Medical History Hemoptysis Leukocytosis Hepatic steatosis Emphysematous COPD Pulmonary fibrosis Pneumothorax on right Community acquired pneumonia Psychiatric care Personal history of ECMO Aortic aneurysm Atrial fibrillation Chest pressure Atrial flutter Surgical History (Updated 10/10/23 @ 16:36 by Prasanna Soriano MD) Hx of prior ablation treatment History of laparoscopic appendectomy Hx of tracheostomy Hx of hernia repair [facility] [employer] (ventriculoperitoneal) shunt status Family History Mother Cancer adrenal glan Other Diabetes Heart disease Hypertension Lung disease Psychiatric illness Denies family history of Aneurysm TIA (transient ischemic attack) Hyperlipidemia Hyperthyroidism Hypothyroidism Stroke Social History Smoking and tobacco/nicotine status: current every day tobacco/nicotine user cigarettes Packs smoked per day: 0.5 Alcohol intake: former Substance/Drug Use: former Lives independently: Yes Current occupational status: retired and disabled Special darren needs: No Agree to transfusion: Yes Vitals/I&O/Wt Last Vital Signs Temp 98.1 F 10/10/23 11:40 Pulse 101 H 10/10/23 12:46 Resp 18 10/10/23 12:46 BP 132/89 10/10/23 12:46 Pulse Ox 97 10/10/23 12:46 O2 Del Method Room Air 10/10/23 12:46 Physical Exam 2 Narrative: Uncomfortable. Const: COMMON NORMALS: patient oriented x3 and alert GENERAL APPEARANCE: c ooperative ORIENTATION/CONSCIOUSNESS: Yes awake HENMT: COMMON NORMALS: oropharynx normal Neck/C-Spine: COMMON NORMALS: no JVD Resp: COMMON NORMALS: normal respiratory effort and clear to auscultation bilaterally AUSCULTATION: clear to auscultation bilaterally Cardio: COMMON NORMALS: no JVD, regular rhythm, S1 normal heart sound present, S2 normal heart sound present and No murmurs present (Cardio) RHYTHM: regular rhythm HEART SOUNDS: S1 normal heart sound present and S2 normal heart sound present GI: COMMON NORMALS: Normal to inspection, nondistended, normoactive bowel sounds present, Soft to palpation and non-tender PALPATION: Yes Soft to palpation Extremity: COMMON NORMALS: no joint enlargement and no pedal edema Neuro: COMMON NORMALS: patient oriented x3 and moves all extremities S ENSORIUM/ORIENTATION: Yes alert Skin: COMMON NORMALS: no rashes or lesions noted GENERAL SKIN EXAM: no rashes or lesions noted Data 10/10/23 11:41 10/10/23 11:41 A&P Assessment and plan (1) Partial small bowel obstruction: Partial SBO with transition point in distal ileum noted on CT. NGT has been placed. Continue decompression. Bowel rest. IV hydration. Reviewed vitals, CBC, CMP, chest x-ray, surgery consult note, ER note, discussed with ER physician. At risk of electrolyte abnormality with NG to suction. Follow-up chemistry. Additionally noted small amount of blood mixed in with secretions, hold anticoagulation for now. SCD only for DVT prophylaxis. Follow-up CBC requested. Plan Incidentally noted inguinal hernia with slight herniation, no evidence of obstruction. Smoking addiction: Nicotine replacement as needed. Atrial fibrillation, previously on anticoagulation with Eliquis, currently unable to take medication. As well as on metoprolol, will switch to low-dose IV metoprolol for now so that he does not go into withdrawal. Pulmonary fibrosis, COPD, not normally on oxygen. Monitor oxygenation. Neb treatments as needed. Aortic aneurysm Other medical problems Attestations 2 Medical Necessity Statement*: Hospitalization of over 2 midnights anticipated for assessment management of partial small bowel obstruction. Diagnoses Partial small bowel obstruction K56.600
[2023-10-10] MEDS: D5-NS 0.45% + KCL 20 mEq 20 MEQ/1,000 ML BAG 125 MEQ IV ×2 (15:41→23:48)
[2023-10-10] MEDS: metoprolol tartrate 1 mg/1 mL SDV 5 mL 2.5 MG IVP ×2 (15:44→22:45)
[2023-10-10] MEDS: pantoprazole 40 mg SDV IVP (15:44)
[2023-10-11] VITALS (11 sets, daily range): BP systolic 121–159; BP diastolic 75–91; PULSE 59–79; RESP 16–19; TEMP 36.4–36.8; O2SAT 89–97
[2023-10-11 00:04] LABS: Add Urine Microscopic? NO; Charge for UA Resulting for Rev
[2023-10-11 00:09] LABS: Bilirubin Urine Neg (Negative); Blood Urine Neg (Negative); Glucose Urine UA Norm (Normal); Ketones Urine Negative (Negative); Leukocyte Esterase Urine Negative (Negative); Nitrate Urine Negative (Negative); Protein Urine Neg (Negative); Urine Appearance Clear (CLEAR); Urine Color Dark yellow (Yellow); Urobilinogen Urine Norm (Negative); pH Urine 7 (5-7)
[2023-10-11] MEDS: morphine 4 mg/mL SDV 1 mL IVP ×4 (03:52→21:18)
[2023-10-11 05:05] LABS: Basophils # 0.1 10^3/uL (0.0-0.1); Basophils % 0.5 %; Eosinophils # 0.4 10^3/uL (0.0-0.8); Eosinophils % 4.3 %; Hematocrit 37.5 % (37-53); Lymphocytes # 1.9 10^3/uL (0.8-4.8); Lymphocytes % 20.5 %; Mean Corpuscular Hemoglobin 29.1 pg (27-33); Mean Corpuscular Volume 90.8 fl (82-101); Mean Platelet Volume 11.2 fL (7.4-10.4); Monocytes % 10.6 %; Neutrophils # 5.82 10^3/uL (1.8-7.7); Neutrophils % 63.8 %; Nucleated Red Blood Cells % 0 %; Platelet Count 201 10^3/cmm (157-399); Red Blood Count 4.13 10^6/uL (3.85-5.65); Red Cell Distribution Width 15.9 % (12.1-15.1); White Blood Count 9.13 10^3/uL (3.29-11.43)
[2023-10-11 05:30] LABS: Anion Gap 10.2 (5-19); Blood Urea Nitrogen 15 mg/dL (6-20); Calcium 8.4 mg/dL (8.5-10.5); Carbon Dioxide 26 mmol/L (22-29); Chloride 107 mmol/L (98-107); Glomerular Filtration Rate 87.9 mL/min (90-130); Glucose 121 mg/dL (65-115); Osmolality Calculated 290 mOsm/kg (285-295); Potassium 4.2 mmol/L (3.5-5.1); Sodium 139 mmol/L (136-145)
[2023-10-11] MEDS: metoprolol tartrate 1 mg/1 mL SDV 5 mL 2.5 MG IVP ×2 (06:29→14:11)
[2023-10-11] MEDS: D5-NS 0.45% + KCL 20 mEq 20 MEQ/1,000 ML BAG 125 MEQ IV (08:29)
--- NOTE | 2023-10-11 08:55 | XRR_ITS ---
PROCEDURE INFORMATION: Exam: XR Abdomen Exam date and time: 10/11/2023 10:43 AM Age: 53 years old Clinical indication: Condition or disease; Intestinal condition; Obstruction; Prior surgery; Surgery date: 6+ months; Surgery type: Service Now Developer shunt, hernia x 3, ; additional info: Bowel obstruction TECHNIQUE: Imaging protocol: Radiologic exam of the abdomen. Views: Frontal supine view of the abdomen. 1 View. COMPARISON: CT abdomen pelvis w con* [id number] 10/10/2023 12:09 PM FINDINGS: Tubes, catheters and devices: A TIE INSPECTOR shunt catheter enters the right abdomen, and terminates in the left lower abdomen. A separate catheter fragment looped on itself several times is in the right abdomen. Gastrointestinal tract: Moderate amount of gas and stool throughout the colon. There appears to be decreased gas in the small bowel since yesterday suggesting improving small bowel obstruction. No free air. Bones/joints: Mild scoliosis with mild and moderate multilevel spondylosis. XR/XR KUB [id number] IMPRESSION: 1. Possible improving small bowel obstruction since yesterday. 2. Additional details as above.
--- NOTE | 2023-10-11 09:19 | P.PN_ITS ---
Subjective 2 Subjective: The patient is without complaints. The patient states that he is having some trouble urinating. He denies fever or chills. He states that his abdomen is feeling somewhat better. Medications: Reviewed: Yes Vitals/I&O/Wt Last Vital Signs Temp 97.9 F 10/11/23 07:31 Pulse 67 10/11/23 07:31 Resp 16 10/11/23 08:26 BP 147/84 10/11/23 07:31 Pulse Ox 91 10/11/23 07:31 O2 Del Method Room Air 10/11/23 07:31 10/10/23 10/11/23 10/11/23 22:59 06:59 14:59 Intake Total 3000 / 3000 1000 / 4000 1000 / 1000 Output Total 200 / 200 100 / 100 Balance 3000 / 3000 800 / 3800 900 / 900 Weight last 48 hrs Weight 164 lb Physical Exam 2 Narrative: General: No acute distress Lungs: Clear to auscultation Heart: Regular rate and rhythm Abdomen: Soft, nondistended, nontender. The patient has normal active bowel sounds. I do not appreciate any rushes or tinkles. There are no masses that I can appreciate. Neurologic: The patient is awake, alert, oriented x 3. The patient's Liberal Coma Scale is 15. The patient moves all 4 extremities without difficulty. The patient's sensation is intact to light touch throughout. Data 10/11/23 04:29 10/11/23 04:29 Attestation for Other Data: I personally reviewed and interpreted the following: (Labs and x-rays) A&P Assessment and plan (1) Partial small bowel obstruction: I have ordered a KUB for this morning. I will check the KUB. The patient really has had not much out of his NG tube. I am wondering if the NG tube is in correct position. The patient's abdomen is clearly less distended than it was yesterday. If the KUB looks improved. I will probably remove the patient's NG tube later on this morning. Attestations 2 Medical Necessity Statement*: Continued observation for partial bowel obstruction Coding Level of Care Code 84644 Diagnoses Partial small bowel obstruction K56.600
[2023-10-11] MEDS: pantoprazole 40 mg SDV IVP (14:11)
--- NOTE | 2023-10-11 15:58 | PC.NURSE ---
NG tube removed at 1130 am by nurse per message to nurse order. Patient tolerated well.
--- NOTE | 2023-10-11 19:03 | P.PN_ITS ---
Subjective 2 Subjective: Doing overall somewhat better. No additional vomiting. Output not particularly copious from NGT so it was removed by surgery. Trialing clear liquids. Having some wheezing on exam, he states he gets wheezing at home due to COPD. Vitals/I&O/Wt Last Vital Signs Temp 97.9 F 10/11/23 16:04 Pulse 59 L 10/11/23 16:04 Resp 17 10/11/23 16:04 BP 121/75 10/11/23 16:04 Pulse Ox 93 10/11/23 16:04 O2 Del Method Room Air 10/11/23 16:04 10/11/23 10/11/23 10/11/23 06:59 14:59 22:59 Intake Total 1000 / 4000 1720 / 1720 Output Total 200 / 200 500 / 500 800 / 1300 Balance 800 / 3800 1220 / 1220 -800 / 420 Weight last 48 hrs Weight 74.389 kg Physical Exam 2 Narrative: Sleeping, wakes up to voice Const: COMMON NORMALS: patient oriented x3 and alert GENERAL APPEARANCE: c ooperative ORIENTATION/CONSCIOUSNESS: Yes awake HENMT: COMMON NORMALS: oropharynx normal Neck/C-Spine: COMMON NORMALS: no JVD Resp: COMMON NORMALS: normal respiratory effort AUSCULTATION: wheezes Cardio: COMMON NORMALS: no JVD, regular rhythm, S1 normal heart sound present, S2 normal heart sound present and No murmurs present (Cardio) RHYTHM: regular rhythm HEART SOUNDS: S1 normal heart sound present and S2 normal heart sound present GI: COMMON NORMALS: Normal to inspection, nondistended, normoactive bowel sounds present, Soft to palpation and non-tender PALPATION: Yes Soft to palpation Extremity: COMMON NORMALS: no joint enlargement and no pedal edema Neuro: COMMON NORMALS: patient oriented x3 and moves all extremities S ENSORIUM/ORIENTATION: Yes alert Skin: COMMON NORMALS: no rashes or lesions noted GENERAL SKIN EXAM: no rashes or lesions noted Data 10/11/23 04:29 10/11/23 04:29 A&P Assessment and plan (1) Partial small bowel obstruction: No additional vomiting. Scant output from NG tube. Removed. Trialing clear liquid diet. Stop IV fluid. Reviewed surgery note. Reviewed CBC, BMP, UA. Partial SBO with transition point in distal ileum noted on CT. Additionally noted small amount of blood mixed in with secretions, hold anticoagulation for now. SCD only for DVT prophylaxis. Follow-up additional CBC. Anticoagulation has been held. Plan Incidentally noted inguinal hernia with slight herniation, no evidence of obstruction. Smoking addiction: Nicotine replacement as needed. Atrial fibrillation, previously on anticoagulation with Eliquis, currently unable to take medication. Resume oral metoprolol. Stop IV Pulmonary fibrosis, COPD, not normally on oxygen. Monitor oxygenation. Neb treatments as needed. Aortic aneurysm Mood disorder: Resume Wellbutrin, Lexapro, Resume statin Other medical problems. Attestations 2 Medical Necessity Statement*: Continue hospitalization for assessment and management of partial SBO. Diagnoses Partial small bowel obstruction K56.600
[2023-10-11] MEDS: ipratropium-albuterol 3 mL Neb INHALATION (20:33)
[2023-10-11] MEDS: escitalopram 10 mg Tablet 20 MG PO (21:09)
[2023-10-11] MEDS: metoprolol tartrate 25 mg Tablet 12.5 MG PO (21:09)
[2023-10-12] VITALS (8 sets, daily range): BP systolic 121–129; BP diastolic 73–78; PULSE 52–90; RESP 15–19; TEMP 36.7–37.1; O2SAT 90–93
[2023-10-12 03:41] LABS: Basophils % 0.6 %; Eosinophils # 0.4 10^3/uL (0.0-0.8); Eosinophils % 5.3 %; Lymphocytes # 1.9 10^3/uL (0.8-4.8); Lymphocytes % 26.1 %; Mean Corpuscular HGB Conc 32.1 g/dL (30-55); Mean Corpuscular Hemoglobin 29.3 pg (27-33); Mean Corpuscular Volume 91.5 fl (82-101); Mean Platelet Volume 11.1 fL (7.4-10.4); Monocytes % 13.6 %; Neutrophils # 3.92 10^3/uL (1.8-7.7); Neutrophils % 54.3 %; Nucleated Red Blood Cells % 0 %; Platelet Count 206 10^3/cmm (157-399); Red Blood Count 4.26 10^6/uL (3.85-5.65); Red Cell Distribution Width 15.7 % (12.1-15.1); White Blood Count 7.21 10^3/uL (3.29-11.43)
[2023-10-12 04:04] LABS: Anion Gap 13.2 (5-19); Blood Urea Nitrogen 9 mg/dL (6-20); Carbon Dioxide 27 mmol/L (22-29); Chloride 102 mmol/L (98-107); Glomerular Filtration Rate 87.9 mL/min (90-130); Glucose 104 mg/dL (65-115); Osmolality Calculated 285 mOsm/kg (285-295); Potassium 4.2 mmol/L (3.5-5.1); Sodium 138 mmol/L (136-145)
[2023-10-12] MEDS: buPROPion XL (24 HR) 300 mg Tablet PO (05:42)
[2023-10-12] MEDS: morphine 4 mg/mL SDV 1 mL IVP ×2 (05:47→12:07)
[2023-10-12] MEDS: metoprolol tartrate 25 mg Tablet 12.5 MG PO (08:12)
--- NOTE | 2023-10-12 10:48 | P.PN_ITS ---
Subjective 2 Subjective: This patient stable overnight. The patient is without complaints. The patient is tolerating a regular diet. Medications: Reviewed: Yes Vitals/I&O/Wt Last Vital Signs Temp 98.3 F 10/12/23 07:54 Pulse 52 L 10/12/23 07:54 Resp 16 10/12/23 07:54 BP 128/75 10/12/23 07:54 Pulse Ox 92 10/12/23 07:54 O2 Del Method Room Air 10/12/23 07:54 10/11/23 10/12/23 10/12/23 22:59 06:59 14:59 Intake Total 1000 / 2720 240 / 240 Output Total 800 / 1300 Balance 200 / 1420 240 / 240 Weight last 48 hrs Weight 164 lb 5 oz Weight 164 lb Physical Exam 2 Narrative: Lungs: Clear to auscultation and percussion Heart: Regular rate and rhythm without murmurs. Abdomen: Soft, nontender without masses. The patient has normal active bowel sounds. There is no rushes or tinkles. Data 10/12/23 03:22 10/12/23 03:22 A&P Assessment and plan (1) Partial small bowel obstruction: This patient has no indications for operation. The patient appears to be much much better. He has no obstructive symptoms. Will sign off at this time. Please reconsult for questions or concerns. Attestations 2 Medical Necessity Statement*: See hospitalist note Coding Level of Care Code 56805 Diagnoses Partial small bowel obstruction K56.600
--- NOTE | 2023-10-12 12:32 | PC.NURSE ---
While comic book writer was attempting to place a new IV and discussing with patient if he was a hard stick. Signal Operator informed patient that the hand was the site of placement patient stated to patient good that's the one I use too. Oops.
--- NOTE | 2023-10-12 13:17 | PM.DCS ---
Discharge Providers Date of Admission: 10/10/23 12:57 Date of Discharge: October 12, 2023 Attending Provider at Admission: Prasanna Soriano Attending Provider at Discharge: Prasanna Soriano Primary Care Provider: John Anderson MD Diagnoses at Discharge Discharge Diagnosis (1) Partial small bowel obstruction: Status: Acute Reason for Visit Reason for Visit: abd pain Brief History: Wei Leone is a 53 year old, who has not been feeling well for the last 2 having 3 days with nausea, vomiting, new abdominal pain. CT shows small bowel obstruction. He states he has been passing flatus, had a bowel movement. He is being seen by surgery and ER. NGT has been placed. Hospital Course Hospital Course NG tube was maintained to LIS. He continued with bowel decompression. Bowel rest. Was evaluated by surgery. No surgical intervention found necessary. With scant output from NGT tube was removed. He was trialed on clear liquid diet. Nausea and vomiting have resolved. Tolerating oral intake. On reassessment by surgery with KUB noted possible improving small bowel obstruction. Surgery signed off. He is feeling better, and ready to return home. Instructed to advance diet slowly. Return to the hospital in case of any additional worsening or new concerning symptoms. Physical Exam Narrative: Having a visitor. Const: COMMON NORMALS: patient oriented x3 and alert GENERAL APPEARANCE: cooperative ORIENTATION/CONSCIOUSNESS: Yes awake HENMT: COMMON NORMALS: oropharynx normal Neck/C-Spine: COMMON NORMALS: no JVD Resp: COMMON NORMALS: normal respiratory effort and clear to auscultation bilaterally AUSCULTATION: clear to auscultation bilaterally Cardio: COMMON NORMALS: no JVD, regular rhythm, S1 normal heart sound present, S2 normal heart sound present and No murmurs present (Cardio) RHYTHM: regular rhythm HEART SOUNDS: S1 normal heart sound present and S2 normal heart sound present GI: COMMON NORMALS: Normal to inspection, nondistended, normoactive bowel sounds present, Soft to palpation and non-tender PALPATION: Yes Soft to palpation Extremity: COMMON NORMALS: no joint enlargement and no pedal edema Neuro: COMMON NORMALS: patient oriented x3 and moves all extremities SENSORIUM/ORIENTATION: Yes alert Skin: COMMON NORMALS: no rashes or lesions noted GENERAL SKIN EXAM: no rashes or lesions noted Discharge Data Studies Completed and Pending Completed Studies During Hospitalization Category Date Time Status CT abdomen pelvis w con* [id number] Stat Cat Scan 10/10/23 12:00 Completed XR KUB [id number] NOW Exams 10/11/23 08:55 Completed XR chest 1V portable [id number] Stat Exams 10/10/23 12:47 Completed Pending at discharge Category Date Time Status Basic Metabolic Panel AM LABS Lab 10/13/23 04:00 Ordered Complete Blood Count w/Auto AM LABS Lab 10/13/23 04:00 Ordered Radiology Impressions Chest X-Ray 10/10/23 12:47 IMPRESSION: NG tube in mid stomach. Abnormal small-bowel loops demonstrating gaseous distention in the upper abdomen. Severe pulmonary emphysema. KUB X-Ray 10/11/23 08:55 IMPRESSION: 1. Possible improving small bowel obstruction since yesterday. 2. Additional details as above. Laboratory Results WBC 7.21 10^3/uL (3.29-11.43) 10/12/23 03:22 RBC 4.26 10^6/uL (3.85-5.65) 10/12/23 03:22 Hgb 12.50 g/dL (11.27-16.99) 10/12/23 03:22 Hct 39.0 % (37-53) 10/12/23 03:22 MCV 91.5 fl (82-101) 10/12/23 03:22 MCH 29.3 pg (27-33) 10/12/23 03:22 MCHC 32.1 g/dL (30-55) 10/12/23 03:22 RDW 15.7 % (12.1-15.1) H 10/12/23 03:22 Plt Count 206 10^3/cmm (157-399) 10/12/23 03:22 MPV 11.1 fL (7.4-10.4) H 10/12/23 03:22 Neut % (Auto) 54.3 % 10/12/23 03:22 Lymph % (Auto) 26.1 % 10/12/23 03:22 [place] % (Auto) 13.6 % 10/12/23 03:22 Eos % (Auto) 5.3 % 10/12/23 03:22 Baso % (Auto) 0.6 % 10/12/23 03:22 Neut # (Auto) 3.92 10^3/uL (1.8-7.7) 10/12/23 03:22 Lymph # (Auto) 1.9 10^3/uL (0.8-4.8) 10/12/23 03:22 [place] # (Auto) 1.0 10^3/uL (0.2-0.9) H 10/12/23 03:22 Eos # (Auto) 0.4 10^3/uL (0.0-0.8) 10/12/23 03:22 Baso # (Auto) 0.0 10^3/uL (0.0-0.1) 10/12/23 03:22 Nucleated RBC % (auto) 0 % 10/12/23 03:22 Nucleated RBCs # 0.0 /100WBC 10/12/23 03:22 Sodium 138 mmol/L (136-145) 10/12/23 03:22 Potassium 4.2 mmol/L (3.5-5.1) 10/12/23 03:22 Chloride 102 mmol/L (98-107) 10/12/23 03:22 Carbon Dioxide 27 mmol/L (22-29) 10/12/23 03:22 Anion Gap 13.2 (5-19) 10/12/23 03:22 BUN 9 mg/dL (6-20) 10/12/23 03:22 Creatinine 0.9 mg/dL (0.7-1.2) 10/12/23 03:22 GFR Calculation 87.9 mL/min (90-130) L 10/12/23 03:22 Glucose 104 mg/dL (65-115) 10/12/23 03:22 Calculated Osmolality 285 mOsm/kg (285-295) 10/12/23 03:22 Calcium 9.0 mg/dL (8.5-10.5) 10/12/23 03:22 Total Bilirubin 0.3 mg/dL (0.15-1.2) 10/10/23 11:41 AST 23 U/L (0-40) 10/10/23 11:41 ALT 17 U/L (0-41) 10/10/23 11:41 Alkaline Phosphatase 114 U/L (40-130) 10/10/23 11:41 Total Protein 8.4 g/dL (6.6-8.7) 10/10/23 11:41 Albumin 4.9 g/dL (3.5-5.2) 10/10/23 11:41 Globulin 3.5 g/dL (1.3-4.6) 10/10/23 11:41 Lipase 25 U/L (13-60) 10/10/23 11:41 Urine Color Dark yellow (Yellow) 10/10/23 22:50 Urine Appearance Clear (CLEAR) 10/10/23 22:50 Urine pH 7 (5-7) 10/10/23 22:50 Ur Specific [place] 1.010 (1.005-1.030) 10/10/23 22:50 Urine Protein Neg (Negative) 10/10/23 22:50 Urine Glucose (UA) Norm (Normal) 10/10/23 22:50 Urine Ketones Negative (Negative) 10/10/23 22:50 Urine Blood Neg (Negative) 10/10/23 22:50 Urine Nitrate Negative (Negative) 10/10/23 22:50 Urine Bilirubin Neg (Negative) 10/10/23 22:50 Urine Urobilinogen Norm mg/dL (Negative) 10/10/23 22:50 Ur Leukocyte Esterase Negative (Negative) 10/10/23 22:50 Vitals Last Vital Signs Temp 98.3 F 10/12/23 07:54 Pulse 90 10/12/23 11:46 Resp 17 10/12/23 12:07 BP 121/73 10/12/23 11:46 Pulse Ox 90 10/12/23 11:46 O2 Del Method Room Air 10/12/23 11:46 Discharge Plan Discharge Patient Disposition: Home Condition: Stable Prescriptions: Continued bupropion HCl [Wellbutrin XL] 300 mg tablet extended release 24 hr 300 mg PO QAM Qty: 90 1RF escitalopram oxalate 20 mg tablet 20 mg PO BEDTIME Qty: 90 1RF fluticasone propion-salmeterol [Advair Diskus] 250-50 mcg/dose blister with device 1 inh INHALATION BID Qty: 60 0RF Eliquis 5 mg tablet 5 mg PO BID Qty: 180 2RF midodrine 2.5 mg tablet See Rx Instructions .ROUTE .COMPLEX Qty: 60 0RF Dose Instruction: TAKE 1 TABLET BY MOUTH TWICE DAILY DO NOT GIVE LAST DOSE OF DAY AFTER 6PM OR WITHIN 4HRS OF BEDTIME Rx Instructions: TAKE 1 TABLET BY MOUTH TWICE DAILY DO NOT GIVE LAST DOSE OF DAY AFTER 6PM OR WITHIN 4HRS OF BEDTIME atorvastatin 40 mg tablet 40 mg PO QPM metoprolol tartrate 25 mg Tablet 12.5 mg PO BID@0900,2100 Qty: 60 2RF thiamine mononitrate (vit B1) [Vitamin B-1 (mononitrate)] 100 mg Tablet 100 mg PO DAILY Qty: 90 2RF albuterol sulfate [Ventolin HFA] 90 mcg/actuation Hfa Aerosol Inhaler 2 puff INHALATION Q4H PRN (Reason: Shortness Of Breath) Qty: 8.5 3RF Spiriva Respimat 1.25 mcg/actuation mist 2 inh inhalation DAILY Qty: 4 3RF folic acid 1 mg tablet 1 mg PO QAM Discharge Orders: Discharge Order (Routine); Ordered 10/12/23 Ordered By: Prasanna Soriano Referrals: John Anderson MD [Primary Care Provider] - 4-7 days (We have notified your physician's clinic of the need for a follow-up appointment to be scheduled. If you have not heard from them within the next 2 business days, please call them directly. ) Discharge Diet: As Directed Discharge Activity: Increase activity as tolerated Patient Instructions: How to Stop Smoking (GEN), Cigarette Smoking and Your Health (GEN), Bowel Obstruction (GEN) Activity Restrictions/Additional Instructions: Advance diet slowly. Avoid constipation. Follow-up with your primary doctor for reassessment after small bowel obstruction. Please stop smoking due to risk of progression of lung disease, risk of heart attack and stroke, cancer, and other complications. Avoid any illicit substance use due to potential disabling an/or life threatening adverse effects. Return to the hospital in case of any worsening or new concerning symptoms. Discharge Attestations Time Spent in Discharge Care*: greater than 30 min Quality Metrics Clinical Quality Measures [ No reported AMI, CVA or VTE this stay] Coding Level of Care Code 11578 Total time (in minutes) for Discharge: 35 Diagnoses Partial small bowel obstruction K56.600
== END 2023-10-12 13:57 | disposition home or self-care (01) | DRG 390 ==
LOC: ER 12:27 → ER IP 14:05 → MEDSURG 14:52
PROVIDERS: Admitting Provider Internal Medicine; Emergency Provider Family Medicine; PCP Family Medicine; Visit Provider Internal Medicine
DX: K56.600 Partial intestinal obstruction, unspecified as to cause (principal); J43.9 Emphysema, unspecified; K76.0 Fatty (change of) liver, not elsewhere classified; J84.10 Pulmonary fibrosis, unspecified; F17.210 Nicotine dependence, cigarettes, uncomplicated; I48.91 Unspecified atrial fibrillation; K40.90 Unilateral inguinal hernia, without obstruction or gangrene, not specified as recurrent; I71.9 Aortic aneurysm of unspecified site, without rupture
CPT/HCPCS: 36415; 71045; 74018; 74177; 80048; 80053; 81003; 83690; 85025; 94640; 96361; 96374; 96376; 99285; C9113; J2270; J2405; J3490; J7030; Q9967

== ENCOUNTER → 2023-12-03 13:40 | Outpatient (BNVA) | payer MEDICARE, MEDICAID, SELFPAY | PROVIDERS: PCP Family Medicine; Referring Provider Family Medicine; Visit Provider Internal Medicine Pulmonary Disease | DX: J44.1 Chronic obstructive pulmonary disease with (acute) exacerbation (principal); Z01.811 Encounter for preprocedural respiratory examination; Z87.09 Personal history of other diseases of the respiratory system; J43.2 Centrilobular emphysema; F17.210 Nicotine dependence, cigarettes, uncomplicated | CPT/HCPCS: 99214 ==

== ENCOUNTER → 2023-12-09 12:50 | Outpatient (BNVA) | payer MEDICARE, MEDICAID, SELFPAY | PROVIDERS: PCP Family Medicine; Visit Provider Surgery | DX: K40.90 Unilateral inguinal hernia, without obstruction or gangrene, not specified as recurrent (principal) | CPT/HCPCS: 99214 ==

== ENCOUNTER → 2023-12-16 15:53 | Outpatient (BNVA) | payer MEDICARE, MEDICAID, SELFPAY | PROVIDERS: PCP Family Medicine; Visit Provider Student in an Organized Health Care Education/Training Program | DX: M72.0 Palmar fascial fibromatosis [Dupuytren] (principal) | CPT/HCPCS: 20527; 99214 ==

== ENCOUNTER 2023-12-18 06:00 | Outpatient (RCR) | payer MEDICARE, MEDICAID, SELFPAY | END 2023-12-18 23:59 | disposition home or self-care (01) | LOC: SOT 06:00 | PROVIDERS: Visit Provider Student in an Organized Health Care Education/Training Program | DX: M72.0 Palmar fascial fibromatosis [Dupuytren] (principal) | CPT/HCPCS: 26341; 29130; 97165; 97760; 99214; L3923 ==

== ENCOUNTER 2023-12-19 06:00 | Outpatient (RCR) | payer MEDICARE, MEDICAID, SELFPAY | END 2024-01-18 23:59 | disposition home or self-care (01) | LOC: SOT 06:00 | PROVIDERS: Visit Provider Student in an Organized Health Care Education/Training Program | DX: M72.0 Palmar fascial fibromatosis [Dupuytren] (principal) | CPT/HCPCS: 97022; 97110; 97140 ==

== ENCOUNTER 2024-01-04 18:59 | Emergency (ER) | payer MEDICARE, MEDICAID, SELFPAY ==
[2024-01-04] VITALS (14 sets, daily range): BP systolic 118–168; BP diastolic 73–100; PULSE 72–100; RESP 16–27; TEMP 36.7; O2SAT 93–98; BMI 21.2
--- NOTE | 2024-01-04 19:11 | XRR_ITS ---
PROCEDURE INFORMATION: Exam: XR Chest Exam date and time: 01/04/2024 7:27 PM Age: 53 years old Clinical indication: Shortness of breath; Prior surgery; Surgery date: 6+ months; Surgery type: Ablation; Aortic aneurism; Additional info: SOB TECHNIQUE: Imaging protocol: Radiologic exam of the chest. Views: 1 view. COMPARISON: CR XR chest 1V portable [id number] 10/10/2023 12:53 PM FINDINGS: Lungs: Emphysematous changes. Pleural spaces: Right apical lung field paucity of lung markings likely reflecting emphysematous changes, somewhat similar to prior exam, a pneumothorax is felt less likely, chest CT could further characterize this. Heart/Mediastinum: Chronic right thorax linear calcifications likely from a previously present ventricular peritoneal shunt. Bones/joints: Unremarkable. XR/XR chest 1V portable [id number] IMPRESSION: 1. Right apical lung field paucity of lung markings likely reflecting emphysematous changes, somewhat similar to prior exam, a pneumothorax is felt less likely, chest CT could further characterize this. 2. Chronic right thorax linear calcifications likely from a previously present ventricular peritoneal shunt. 3. Emphysematous changes.
--- NOTE | 2024-01-04 19:13 | W.ED.SOB ---
HPI - SOB/Dyspnea General: Chief Complaint: Shortness of Breath/Dyspnea Stated Complaint: Sob temp Time Seen by Provider: 01/04/24 19:10 Source: patient Mode of arrival: ambulatory Limitations: no limitations History of Present Illness: HPI Narrative: 53-year-old male has a history of COPD states that he has had cough wheezing has been on for 2 weeks. He states been producing some sputum states his COPD gets worse this time the year with allergies. States he is almost out of his albuterol inhaler he denies any fever denies any pain. Associated symptoms: Deny abdominal pain, chest pain, fever(s), nausea or vomiting Review of Systems Const: Denies: fever(s), chills, body aches or change in appetite ENMT: Denies: throat pain or dental pain Card: Denies: chest pain Resp: Reports: dyspnea and productive cough GI: Denies: abdominal pain, nausea, vomiting or diarrhea Musc: Denies: neck pain or back pain Skin/Breast: Denies: rash Neuro: Denies: headache(s) PFSH ED PFSH: Medical History Hemoptysis Leukocytosis Hepatic steatosis Emphysematous COPD Pulmonary fibrosis Pneumothorax on right Community acquired pneumonia Psychiatric care Personal history of ECMO Aortic aneurysm Atrial fibrillation Chest pressure Atrial flutter Surgical History Hx of prior ablation treatment History of laparoscopic appendectomy Hx of tracheostomy Hx of hernia repair [facility] [employer] (ventriculoperitoneal) shunt status Family History Mother Cancer adrenal glan Other Diabetes Heart disease Hypertension Lung disease Psychiatric illness Denies family history of Aneurysm TIA (transient ischemic attack) Hyperlipidemia Hyperthyroidism Hypothyroidism Stroke Social History Smoking and tobacco/nicotine status: current every day tobacco/nicotine user cigarettes Packs smoked per day: 1 Years cigarettes smoked: 41 [ Other cigarette details: Started at age 12] Alcohol intake: former Substance/Drug Use: former Lives independently: Yes Current occupational status: retired and disabled Special darren needs: No Agree to transfusion: Yes Physical Exam Const: COMMON NORMALS: no acute distress, patient oriented x3 and healthy appearing HENMT: COMMON NORMALS: normocephalic and atraumatic HEAD & SCALP: normocephalic and atraumatic Eye: COMMON NORMALS: Equal, round and reactive pupils present and EOMs intact bilaterally PUPIL: Yes Equal, round and reactive pupils present Neck/C-Spine: COMMON NORMALS: full ROM and supple Chest: COMMONS NORMALS: normal inspection of the chest and normal palpation of entire chest wall Resp: COMMON NORMALS: No retractions and No use of accessory muscles AUSCULTATION: wheezes Cardio: COMMON NORMALS: regular rate, regular rhythm and No murmurs present (Cardio) RATE: regular rate RHYTHM: regular rhythm Extremity: COMMON NORMALS: normal to inspection and full ROM Neuro: COMMON NORMALS: patient oriented x3, moves all extremities and no focal motor deficits Psych: COMMON NORMALS: mental status grossly normal, Normal thought process present and cooperative THOUGHT PROCESS: Normal thought process present Skin: COMMON NORMALS: no rashes or lesions noted and no wounds GENERAL SKIN EXAM: no rashes or lesions noted Course Vital Signs: Vital signs: Vital Signs Temperature 98.0 F 01/04/24 19:05 Pulse Rate 88 01/04/24 19:45 Respiratory Rate 25 H 01/04/24 19:45 Blood Pressure 151/94 01/04/24 19:45 Pulse Oximetry 94 01/04/24 19:58 Oxygen Delivery Me thod Room Air 01/04/24 19:58 MDM - SOB/Dyspnea Medical Decision Making Patient presents here COPD exacerbation x-ray shows no pneumonia he feels much improved here we will prescribe him steroids along with an albuterol inhaler he is follow-up with PCP and return if worsening. Medical Records I reviewed the patient's medical records. Lab Data I reviewed the patient's lab results. 01/04/24 19:39 01/04/24 19:39 Labs/Radiology: Radiology Impressions Chest X-Ray 01/04/24 19:11 IMPRESSION: 1. Right apical lung field paucity of lung markings likely reflecting emphysematous changes, somewhat similar to prior exam, a pneumothorax is felt less likely, chest CT could further characterize this. 2. Chronic right thorax linear calcifications likely from a previously present ventricular peritoneal shunt. 3. Emphysematous changes. Laboratory Results WBC 12.52 10^3/uL (3.29-11.43) H 01/04/24 19:39 RBC 4.34 10^6/uL (3.85-5.65) 01/04/24 19:39 Hgb 13.00 g/dL (11.27-16.99) 01/04/24 19:39 Hct 39.2 % (37-53) 01/04/24 19:39 MCV 90.3 fl (82-101) 01/04/24 19:39 MCH 30.0 pg (27-33) 01/04/24 19:39 MCHC 33.2 g/dL (30-55) 01/04/24 19:39 RDW 15.6 % (12.1-15.1) H 01/04/24 19:39 Plt Count 423 10^3/cmm (157-399) H 01/04/24 19:39 MPV 10.6 fL (7.4-10.4) H 01/04/24 19:39 Neut % (Auto) 67.0 % 01/04/24 19:39 Lymph % (Auto) 18.8 % 01/04/24 19:39 [place] % (Auto) 11.7 % 01/04/24 19:39 Eos % (Auto) 1.5 % 01/04/24 19:39 Baso % (Auto) 0.5 % 01/04/24 19:39 Neut # (Auto) 8.40 10^3/uL (1.8-7.7) H 01/04/24 19:39 Lymph # (Auto) 2.4 10^3/uL (0.8-4.8) 01/04/24 19:39 [place] # (Auto) 1.5 10^3/uL (0.2-0.9) H 01/04/24 19:39 Eos # (Auto) 0.2 10^3/uL (0.0-0.8) 01/04/24 19:39 Baso # (Auto) 0.1 10^3/uL (0.0-0.1) 01/04/24 19:39 Nucleated RBC % (auto) 0 % 01/04/24 19:39 Nucleated RBCs # 0.0 /100WBC 01/04/24 19:39 Sodium 139 mmol/L (136-145) 01/04/24 19:39 Potassium 4.0 mmol/L (3.5-5.1) 01/04/24 19:39 Chloride 100 mmol/L (98-107) 01/04/24 19:39 Carbon Dioxide 27 mmol/L (22-29) 01/04/24 19:39 Anion Gap 16.0 (5-19) 01/04/24 19:39 BUN 11 mg/dL (6-20) 01/04/24 19:39 Creatinine 0.7 mg/dL (0.7-1.2) 01/04/24 19:39 GFR Calculation 117.5 mL/min (90-130) 01/04/24 19:39 Glucose 91 mg/dL (65-115) 01/04/24 19:39 Calculated Osmolality 287 mOsm/kg (285-295) 01/04/24 19:39 Calcium 9.7 mg/dL (8.5-10.5) 01/04/24 19:39 Total Bilirubin 0.2 mg/dL (0.15-1.2) 01/04/24 19:39 AST 14 U/L (0-40) 01/04/24 19:39 ALT 12 U/L (0-41) 01/04/24 19:39 Alkaline Phosphatase 104 U/L (40-130) 01/04/24 19:39 NT-Pro-B Natriuret Pep 241 pg/mL (0-125) H 01/04/24 19:39 Total Protein 6.9 g/dL (6.6-8.7) 01/04/24 19:39 Albumin 3.7 g/dL (3.5-5.2) 01/04/24 19:39 Globulin 3.2 g/dL (1.3-4.6) 01/04/24 19:39 Influenza Type A Ag negative (Negative) 01/04/24 19:35 Influenza Type B Ag negative (Negative) 01/04/24 19:35 SARS-CoV-2 Ag (Rapid) negative (Negative) 01/04/24 19:35 All radiology interpretation(s) finalized by discharge Discharge Plan Discharge Patient Disposition: Home Clinical Impression: COPD exacerbation Condition: Stable Prescriptions: New prednisone 50 mg tablet 50 mg PO DAILY Qty: 5 0RF albuterol sulfate 90 mcg/actuation HFA aerosol inhaler 2 inh INHALATION Q6H PRN (Reason: shortness of breath or wheezing) Qty: 8 0RF No Action bupropion HCl [Wellbutrin XL] 300 mg tablet extended release 24 hr 300 mg PO QAM Qty: 90 1RF Eliquis 5 mg tablet 5 mg PO BID Qty: 180 2RF sertraline [Zoloft] 50 mg tablet 50 mg PO DAILY Qty: 30 0RF sertraline [Zoloft] 100 mg tablet 100 mg PO DAILY Qty: 30 0RF Rx Instructions: Start after 1 month on 50 mg. aripiprazole [Abilify] 5 mg tablet 5 mg PO DAILY Qty: 30 1RF fluticasone propionate [Flonase Allergy Relief] 50 mcg/actuation spray,suspension 2 spray intranasal DAILY Qty: 16 0RF Rx Instructions: administer into each nostril Xiaflex 0.9 mg recon soln 0.18 mg intralesional ONCE Qty: 1 0RF prednisone 20 mg tablet 40 mg PO DAILY 5 Days Qty: 10 0RF fluticasone propion-salmeterol 250-50 mcg/dose blister with device See Rx Instructions .ROUTE .COMPLEX Qty: 60 0RF Dose Instruction: INHALE 1 DOSE BY MOUTH TWICE DAILY Rx Instructions: INHALE 1 DOSE BY MOUTH TWICE DAILY atorvastatin 40 mg tablet 40 mg PO QPM thiamine mononitrate (vit B1) [Vitamin B-1 (mononitrate)] 100 mg Tablet 100 mg PO DAILY Qty: 90 2RF albuterol sulfate [Ventolin HFA] 90 mcg/actuation Hfa Aerosol Inhaler 2 puff INHALATION Q4H PRN (Reason: Shortness Of Breath) Qty: 8.5 3RF Spiriva Respimat 1.25 mcg/actuation mist 2 inh inhalation DAILY Qty: 4 3RF folic acid 1 mg tablet 1 mg PO QAM Discharge Orders: Discharge ED (Routine); Ordered 01/04/24 Ordered By: Madelyn Irizarry Referrals: John Anderson MD [Primary Care Provider] - 4-7 days Discharge Diet: Advance as tolerated Discharge Activity: Resume usual activity Patient Instructions: COPD (Chronic Obstructive Pulmonary Disease) (ED) Coding Level of Care Code ED [employer] for Precious Cooper
[2024-01-04] MEDS: albuterol 8 gm MDI 2 PUFF INHALATION (19:37)
[2024-01-04] MEDS: ipratropium-albuterol 3 mL Neb INHALATION (19:37)
[2024-01-04] MEDS: methylPREDNISolone sod succ 125 mg/2 mL INJ IVP (19:38)
[2024-01-04 19:58] LABS: Basophils # 0.1 10^3/uL (0.0-0.1); Basophils % 0.5 %; Eosinophils # 0.2 10^3/uL (0.0-0.8); Eosinophils % 1.5 %; Hematocrit 39.2 % (37-53); Lymphocytes # 2.4 10^3/uL (0.8-4.8); Lymphocytes % 18.8 %; Mean Corpuscular HGB Conc 33.2 g/dL (30-55); Mean Corpuscular Volume 90.3 fl (82-101); Mean Platelet Volume 10.6 fL (7.4-10.4); Monocytes # 1.5 10^3/uL (0.2-0.9); Monocytes % 11.7 %; Nucleated Red Blood Cells % 0 %; Platelet Count 423 10^3/cmm (157-399); Red Blood Count 4.34 10^6/uL (3.85-5.65); Red Cell Distribution Width 15.6 % (12.1-15.1); White Blood Count 12.52 10^3/uL (3.29-11.43)
[2024-01-04 20:14] LABS: Influenza A by IFA negative (Negative); Influenza B by IFA negative (Negative); SARS Covid-2 Antigen negative (Negative)
[2024-01-04 20:23] LABS: Alanine Aminotransferase 12 U/L (0-41); Albumin Level 3.7 g/dL (3.5-5.2); Alkaline Phosphatase 104 U/L (40-130); Aspartate Amino Transferase 14 U/L (0-40); Blood Urea Nitrogen 11 mg/dL (6-20); Calcium 9.7 mg/dL (8.5-10.5); Carbon Dioxide 27 mmol/L (22-29); Chloride 100 mmol/L (98-107); Creatinine Clr Calc Pharmacy 135.2405; Globulin 3.2 g/dL (1.3-4.6); Glomerular Filtration Rate 117.5 mL/min (90-130); Glucose 91 mg/dL (65-115); NT Pro B Type Natriuretic Pept 241 pg/mL (0-125); Osmolality Calculated 287 mOsm/kg (285-295); Sodium 139 mmol/L (136-145); Total Bilirubin 0.2 mg/dL (0.15-1.2); Total Protein 6.9 g/dL (6.6-8.7)
== END 2024-01-04 21:32 | disposition home or self-care (01) ==
PROVIDERS: Emergency Provider Emergency Medicine; PCP Family Medicine
DX: J44.1 Chronic obstructive pulmonary disease with (acute) exacerbation (principal); Z79.01 Long term (current) use of anticoagulants; Z11.52 Encounter for screening for COVID-19; F17.210 Nicotine dependence, cigarettes, uncomplicated
CPT/HCPCS: 71045; 80053; 83880; 85025; 87426; 87804; 94640; 96374; 99284; J2930; J3535

== ENCOUNTER → 2024-01-15 07:59 | Outpatient (BNVA) | payer MEDICARE, MEDICAID, SELFPAY | PROVIDERS: PCP Family Medicine; Visit Provider Physician Assistant | DX: M72.0 Palmar fascial fibromatosis [Dupuytren] (principal) | CPT/HCPCS: 99213 ==

== ENCOUNTER → 2024-02-03 13:12 | Outpatient (BNVA) | payer MEDICARE, MEDICAID, SELFPAY | PROVIDERS: PCP Family Medicine; Visit Provider Internal Medicine Pulmonary Disease | DX: Z01.811 Encounter for preprocedural respiratory examination (principal); Z87.09 Personal history of other diseases of the respiratory system; J43.2 Centrilobular emphysema; F17.201 Nicotine dependence, unspecified, in remission; Z12.2 Encounter for screening for malignant neoplasm of respiratory organs | CPT/HCPCS: 99213 ==

== ENCOUNTER 2024-09-20 12:11 | Outpatient (CLI) | payer MEDICARE, MEDICAID, SELFPAY ==
[2024-09-20 13:38] LABS: Hepatitis A Antibody IgM Non-Reactive (Nonreactive); Hepatitis B Core AB, Total Reactive (Nonreactive); Hepatitis B Surface AB 78.6 (11.5-1000); Hepatitis B Surface Antigen Non-Reactive (Nonreactive); Hepatitis C Virus Antibody Reactive (Nonreactive)
[2024-09-21 19:20] LABS: HEP C RNA Viral Load Quant <1.18 NOT DETECTED Log IU/mL (NOT DETECTED); HEP C RNA Viral Load Quant <15 NOT DETECTED IU/mL (NOT DETECTED)
== END 2024-09-20 12:12 | disposition home or self-care (01) ==
LOC: LAB 12:13
PROVIDERS: PCP Family Medicine; Visit Provider Family Medicine
DX: B19.20 Unspecified viral hepatitis C without hepatic coma (principal)
CPT/HCPCS: 86705; 86706; 86709; 86803; 87340; 87522

== ENCOUNTER → 2024-10-28 14:32 | Outpatient (BNVA) | payer MEDICARE, MEDICAID, SELFPAY | PROVIDERS: PCP Family Medicine; Visit Provider Physician Assistant | DX: M72.0 Palmar fascial fibromatosis [Dupuytren] | CPT/HCPCS: 73130; 99213 ==

== ENCOUNTER → 2025-07-04 11:18 | Outpatient (BNVA) | payer MEDICARE, OTHER, SELFPAY | PROVIDERS: PCP Family Medicine; Visit Provider Nurse Practitioner Psychiatric/Mental Health | DX: Z79.899 Other long term (current) drug therapy (principal) | CPT/HCPCS: 80053; 80061; 83036 ==